=== PATIENT | female | born 1995 | race Caucasian/White ===

== ENCOUNTER 2016-07-06 17:05 | Emergency (ER) | payer BC, MEDICAID ==
[2016-07-06] MEDS ORDERED: DIPHENHYDRAMINE HCL 50 MG CAPSULE PO ONE (18:34)
[2016-07-06] MEDS ORDERED: NORMAL SALINE 1000 ML 1,000 ML IV ONE ×2 (18:34→18:58)
--- NOTE | 2016-07-06 18:35 | ER Document Report ---
ED Medical Screen (RME) - General Chief Complaint: Flu Symptoms Stated Complaint: UPPER ABDOMINAL PAIN W/ Mode of Arrival: Ambulatory Information source: Patient Notes: Patient is currently 7 months and complains of nausea and vomiting that started today. Patient is . Patient reports left upper quadrant abdominal pain. Patient denies any lower abdominal pain. Patient denies any fever, urinary symptoms, vaginal bleeding or discharge. TRAVEL OUTSIDE OF THE [place] IN LAST 30 DAYS: No - Related Data Allergies/Adverse Reactions: No Known Allergies Allergy (Unverified 07/06/16 18:31) Physical Exam - Vital signs Vitals: Temp Pulse Resp BP Pulse Ox 98.0 F 120 H 16 129/67 H 100 07/06/16 17:12 07/06/16 17:12 07/06/16 17:12 07/06/16 17:12 07/06/16 17:12 - Abdominal Inspection: Gravid female, Other - Left upper quadrant Course - Vital Signs Vital signs: Temp Pulse Resp BP Pulse Ox 98.0 F 120 H 16 129/67 H 100 07/06/16 17:12 07/06/16 18:30 07/06/16 17:12 07/06/16 17:12 07/06/16 17:12
[2016-07-06] MEDS ORDERED: METOCLOPRAMIDE HCL INJ/PF 10 MG/2 ML SDV IV ONE (18:57)
[2016-07-06 19:27] LABS: HEMATOCRIT 38.9 % (36.0-47.0); HEMOGLOBIN 12.9 g/dL (12.0-15.5); HGB HCT DIFFERENCE -0.2; MEAN CORPUSCULAR HEMOGLOBIN 26.7 pg (27.0-33.4); MEAN CORPUSCULAR HGB CONC 33.1 g/dL (32.0-36.0); MEAN CORPUSCULAR VOLUME 81 fl (80-97); RED BLOOD COUNT 4.83 10^6/uL (3.72-5.28); WHITE BLOOD COUNT 13.5 10^3/uL (4.0-10.5)
[2016-07-06 19:43] LABS: ALANINE AMINOTRANSFERASE 25 U/L (9-52); ALBUMIN 3.7 g/dL (3.5-5.0); ALKALINE PHOSPHATASE 75 U/L (38-126); ANION GAP 13 (5-19); ASPARTATE AMINO TRANSFERASE 17 U/L (14-36); BILIRUBIN,TOTAL 0.5 mg/dL (0.2-1.3); BLOOD UREA NITROGEN 10 mg/dL (7-20); CALCIUM 8.9 mg/dL (8.4-10.2); CARBON DIOXIDE 22 mmol/L (22-30); CHLORIDE 106 mmol/L (98-107); GLUCOSE 86 mg/dL (75-110); LIPASE 78.7 U/L (23-300); POTASSIUM 4.2 mmol/L (3.6-5.0); SODIUM 140.9 mmol/L (137-145); TOTAL PROTEIN 6.3 g/dL (6.3-8.2)
[2016-07-06] MEDS ORDERED: DEXTROSE 5%-LACTATED RINGERS 1,000 ML IV ONE (19:49)
--- NOTE | 2016-07-06 19:53 | ER Document Report ---
ED GI/ - General Mode of Arrival: Ambulatory Information source: Patient TRAVEL OUTSIDE OF THE [place] IN LAST 30 DAYS: No - HPI Patient complains to provider of: Abdominal pain - left side, Vomiting Onset: This afternoon - 13:00 Location: Other - see above Associated symptoms: Other - see above <PARAM SMITH - Last Filed: 07/06/16 20:07> <GABIJAZMÍNLUZ MARIA - Last Filed: 07/06/16 23:19> - General Chief Complaint: Flu Symptoms Stated Complaint: UPPER ABDOMINAL PAIN W/ Notes: 20 year old female (7 months) presents to the ED complaining of constant vomiting since 13:00 this afternoon. Patient states that she has associated left sided abdominal pain prior to vomiting. Patient explains that 1 week ago she had similar symptoms with the associated pain. Patient is vomiting every 30 minutes, stating that she is able to hold down water for approximately 30 minutes before vomiting. Mother states that the patient looks more pale than usual. Patient denies diarrhea, coughing, or fever. Patient denies any surgical history and states that she takes pre- vitamins, but is not regular about them. (PARAM SMITH) - Related Data Allergies/Adverse Reactions: No Known Allergies Allergy (Unverified 07/06/16 18:31) Past Medical History - General Information source: Patient - Social History Smoking Status: Never Smoker Frequency of alcohol use: None Family History: Reviewed & Not Pertinent - Medical History Medical History: Negative Surgical Hx: Negative <PARAM SMITH - Last Filed: 07/06/16 20:07> Review of Systems - Review of Systems Constitutional: No symptoms reported. denies: Fever EENT: No symptoms reported Cardiovascular: No symptoms reported Respiratory: No symptoms reported. denies: Cough Gastrointestinal: See HPI, Abdominal pain - left side, Vomiting. denies: Diarrhea Genitourinary: No symptoms reported Female Genitourinary: See HPI, - 7 months Musculoskeletal: No symptoms reported Skin: See HPI, Change in color - pale Hematologic/Lymphatic: No symptoms reported Neurological/Psychological: No symptoms reported <PARAM SMITH - Last Filed: 07/06/16 20:07> Physical Exam - Vital signs Interpretation: Normal - General General appearance: Alert In distress: None - HEENT Head: Normocephalic, Atraumatic Eyes: Normal Extraocular movements intact: Yes Pupils: PERRL - Respiratory Respiratory status: No respiratory distress Breath sounds: Normal - Cardiovascular Rhythm: Regular Heart sounds: Normal auscultation - Abdominal Inspection: Normal, Gravid female - 7 months Distension: No distension Tenderness: Tender - mild LUQ tenderness to palpation Organomegaly: No organomegaly - Back Back: Normal - Extremities General upper extremity: Normal inspection, Normal ROM General lower extremity: Normal inspection, Normal ROM - Neurological Neuro grossly intact: Yes - Psychological Associated symptoms: Normal affect, Normal mood - Skin Skin Temperature: Warm Skin Moisture: Dry Skin Color: Normal <PARAM SMITH - Last Filed: 07/06/16 20:07> <LUZ MARIA ASHLEY - Last Filed: 07/06/16 23:19> - Vital signs Vitals: Temp Pulse Resp BP Pulse Ox 98.0 F 120 H 16 129/67 H 100 07/06/16 17:12 07/06/16 17:12 07/06/16 17:12 07/06/16 17:12 07/06/16 17:12 (PARAM SMITH) (LUZ MARIA ASHLEY) Course - Laboratory Result Diagrams: 07/06/16 19:10 07/06/16 19:10 <PARAM SMITH - Last Filed: 07/06/16 20:07> - Laboratory Result Diagrams: 07/06/16 19:10 07/06/16 19:10 <LUZ MARIA ASHLEY - Last Filed: 07/06/16 23:19> - Re-evaluation Re-evalutation: 07/06/16 22:55 The patient's urine is clean, shows large amount of ketones. The elevated white blood cell count is probably due to all the nausea and vomiting and dehydration. There is no significant abdominal pain on exam or by history. There is no fever. There is no cough or URI symptoms. There is no abdominal or pelvic cramping or bleeding. At this time the patient states her nauseousness is much better even though she declined all nausea medication. She is requesting some tab linda to drink. 07/06/16 23:19 The patient drank tab linda, tolerated it well, is anxious to go home. (LUZ MARIA ASHLEY) - Vital Signs Vital signs: Temp Pulse Resp BP Pulse Ox 98.2 F 99 24 H 102/58 L 96 07/06/16 19:19 07/06/16 19:19 07/06/16 22:31 07/06/16 22:31 07/06/16 22:31 (PARAM SMITH) (LUZ MARIA ASHLEY) - Laboratory Laboratory results interpreted by me: 07/06/16 07/06/16 19:10 21:58 WBC 13.5 H MCH 26.7 L Seg Neuts % (Manual) 92 H Band Neutrophils % 2 L Lymphocytes % (Manual) 2 L Abs Neuts (Manual) 12.7 H Abs Lymphs (Manual) 0.4 L Urine Glucose (UA) >=500 H Urine Ketones 80 H Urine Ascorbic Acid 40 H (LUZ MARIA ASHLEY) Discharge <PARAM SMITH - Last Filed: 07/06/16 20:07> <LUZ MARIA ASHLEY - Last Filed: 07/06/16 23:19> - Discharge Clinical Impression: Dehydration, Third trimester at less than 36 weeks Nausea & vomiting Qualifiers: Vomiting type: unspecified Vomiting Intractability: non-intractable Qualified Code(s): R11.2 - Nausea with vomiting, unspecified Condition: Stable Disposition: HOME, SELF-CARE Additional Instructions: Nausea or Vomiting, Nonspecific: Vomiting (or nausea without vomiting) can be caused by many different problems. Of course, it can mean that something's wrong with the stomach, such as "stomach flu," ulcers, or inflammation. But it can also be a symptom of a problem that has nothing to do with the stomach or intestines. Vomiting is common with severe headaches, earaches, and tonsillitis. We see it with pneumonia or heart attacks. Drugs can cause nausea. Many abdominal problems cause vomiting; for example, gallstones, kidney stones, pancreatitis, and intestinal obstruction (blocked bowels). In most cases, curing the vomiting depends on fixing the problem that caused it. For temporary relief, we may use an anti-nausea medicine. For home use, we can prescribe suppositories, chewable pills, pills that dissolve in the mouth, or liquid anti-nausea drugs. If the vomiting seems to be caused by a problem in the stomach, acid-suppressing drugs may be prescribed as well. It's important to avoid dehydration. Sip clear liquids. Take increasing amounts of fluid over the first 24 hours. Then start small amounts of bland foods (such as dry toast, applesauce, mashed potato). Avoid aspirin, tobacco, and alcohol. Gradually resume your usual diet. If the vomiting worsens, if the problem that's making you vomit worsens, or if there's evidence of bleeding in the stomach (such as black, tarry stool, bloody or black vomit, or lightheadedness), you should return immediately. Call your doctor if you aren't improved in 24 to 36 hours. TAKE THE MEDICATION PRESCRIBED FOR NAUSEA IF NEEDED. DRINK SMALL SIPS OF COOL CLEAR LIQUIDS TODAY. FOLLOW UP WITH YOUR DOCTOR THIS WEEK FOR RECHECK IF NOT IMPROVING. RETURN TO THE EMERGENCY ROOM IF ANY NEW OR WORSENING SYMPTOMS. Prescriptions: Promethazine HCl [Phenergan 25 mg Tablet] 25 mg PO Q4 PRN #12 tablet PRN Reason: For Nausea/Vomiting Referrals: GALEN RAMIREZ MD [Primary Care Provider] - Follow up in 3-5 days Иринаibe Attestation: 07/06/16 23:13 I personally performed the services described in the documentation, reviewed and edited the documentation which was dictated to the scribe in my presence, and it accurately records my words and actions. (ULZ MARIA ASHLEY) Scribe Documentation - Scribe Written by Alber:: Alber Kruse, 07/06/2016 19:53 acting as scribe for :: Gabi <PARAM SMITH - Last Filed: 07/06/16 20:07>
[2016-07-06 20:04] LABS: BAND NEUTROPHILS % (MANUAL) 2 % (3-5); BASOPHILS % (MANUAL) 0 % (0-2); EOSINOPHILS % (MANUAL) 0 % (0-6); LYMPHOCYTES % (MANUAL) 2 % (13-45); TOTAL CELLS COUNTED 100
[2016-07-06 20:05] LABS: HYPOCHROMASIA SLIGHT
[2016-07-06 22:25] LABS: APPEARANCE,URINE SLIGHTLY-CLOUDY; BILIRUBIN,URINE NEGATIVE (NEGATIVE); GLUCOSE, URINE >=500 mg/dL (NEGATIVE); KETONES,URINE 80 mg/dL (NEGATIVE); LEUKOCYTE ESTERASE,URINE NEGATIVE (NEGATIVE); NITRITE,URINE NEGATIVE (NEGATIVE); PROTEIN,URINE NEGATIVE (NEGATIVE); URINE SPECIFIC GRAVITY 1.023; UROBILINOGEN,URINE NEGATIVE mg/dL (<2.0)
[2016-07-06 23:21] VITALS: BP 110/67
== END 2016-07-06 23:28 | disposition home or self-care (01) ==
LOC: ER 17:05
DX: O21.2 Late vomiting of pregnancy (principal); O99.283 Endocrine, nutritional and metabolic diseases complicating pregnancy, third trimester; E86.0 Dehydration; O26.893 Other specified pregnancy related conditions, third trimester; R10.12 Left upper quadrant pain; R23.1 Pallor; Z3A.00 Weeks of gestation of pregnancy not specified
CPT/HCPCS: 99284; 96361; 96374; 96375; 36415; 83690; 85025; 80053; 81001; J3490; J7030

== ENCOUNTER 2016-08-20 14:32 | Outpatient (CLI) | payer MEDICAID ==
--- NOTE | 2016-08-20 16:01 | L&D Flow Sheet ---
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 Received order to check bedside glucose and give her crackers and peanut butter. (Vicky Broderick RN) Datetime: 08/20/2016 15:40 Maternal Assessment Level of Consciousness: Fully Conscious (Vicky Desaijohnember, RN) DTR's/Clonus: DTRs 2+; No Clonus (Vicky Marlaember, RN) Headache: Denies (Vicky Broderick, RN) Breath Sounds, Left: Clear and Equal (Vicky Desaijohnember, RN) Breath Sounds, Right: Clear and Equal (Vicky Kristinember, RN) Nausea/Vomiting: Denies (Vicky Marlaember RN) RUQ Epigastric Pain: Denies (Vicky Broderick, RN) Datetime: 08/20/2016 15:35 Vital Signs NBP Sys/Cherie/Mean (mmHg): 94 (QS system process) : 57 (QS system process) : 68 (QS system process) Pulse: 74 (QS system process)
[2016-08-20 16:16] LABS: APPEARANCE,URINE SLIGHTLY-CLOUDY; BILIRUBIN,URINE NEGATIVE (NEGATIVE); GLUCOSE, URINE NEGATIVE (NEGATIVE); KETONES,URINE 20 mg/dL (NEGATIVE); LEUKOCYTE ESTERASE,URINE MODERATE (NEGATIVE); NITRITE,URINE NEGATIVE (NEGATIVE); PROTEIN,URINE NEGATIVE (NEGATIVE); URINE SPECIFIC GRAVITY 1.005; UROBILINOGEN,URINE NEGATIVE mg/dL (<2.0)
[2016-08-20 16:36] LABS: URINE BARBITURATES SCREEN NEGATIVE; URINE METHADONE SCREEN NEGATIVE; URINE OPIATES LOW NEGATIVE; URINE PHENCYCLIDINE SCREEN NEGATIVE
--- NOTE | 2016-08-20 17:11 | Non Stress Test Report ---
Non Stress Test Datetime Report Generated by CPN: 08/20/2016 17:11 DEMOGRAPHIC EGA NST: 34.4 INDICATION Indication for Study: Other Indication for Study (NST) Other: LC MONITORING Monitor Explained: Monitor Explained; Test Explained; Patient Verbalized Understanding Time on Monitor: 08/20/2016 15:37 Time off Monitor: 08/20/2016 16:24 NST Duration: 47 NST INTERVENTIONS NST Interventions: PO Hydration Physician Notified NST: A. Emmel CNM BABY A: [id number] BABY A Movement : Present Contraction Frequency : rare FHR Baseline : 125 Accelerations : 15X15 Decelerations : None Variability : Moderate 6-25bpm NST Review: Meets Criteria for Reactive NST NST Review and Verified By : Alvin Keyes RN NST Results: Reactive NST REPORT Report Trigger: Send Report
== END 2016-08-20 16:30 | disposition home or self-care (01) ==
LOC: LC 14:32
PROVIDERS: ATTEND Specialist
PROC: 4A1HXCZ Monitoring of Products of Conception, Cardiac Rate, External Approach (ICD-10-PCS; principal; 2016-08-20)
DX: O47.03 False labor before 37 completed weeks of gestation, third trimester (principal); Z3A.34 34 weeks gestation of pregnancy
CPT/HCPCS: 59025; 80307; 81001; 82962

== ENCOUNTER 2016-09-25 08:11 | Outpatient (CLI) | payer MEDICAID ==
[2016-09-25 08:49] LABS: APPEARANCE,URINE SLIGHTLY-CLOUDY; BILIRUBIN,URINE NEGATIVE (NEGATIVE); GLUCOSE, URINE NEGATIVE (NEGATIVE); KETONES,URINE NEGATIVE (NEGATIVE); LEUKOCYTE ESTERASE,URINE TRACE (NEGATIVE); NITRITE,URINE NEGATIVE (NEGATIVE); PROTEIN,URINE 30 mg/dL (NEGATIVE); UROBILINOGEN,URINE NEGATIVE mg/dL (<2.0)
[2016-09-25 09:16] LABS: URINE BARBITURATES SCREEN NEGATIVE; URINE METHADONE SCREEN NEGATIVE; URINE OPIATES LOW NEGATIVE; URINE PHENCYCLIDINE SCREEN NEGATIVE
--- NOTE | 2016-09-25 10:46 | L&D Flow Sheet ---
LD Flowsheet Datetime Report Generated by CPN: 09/25/2016 10:45 Datetime: 09/25/2016 09:16 Communication Additional Nursing Comments: Pt physically left L_D ambulatory in stable condition with at side and no complaints or needs at this time. (Arabella Jose Luis, RNC) Datetime: 09/25/2016 09:05 Assessment A Comments: Monitors removed from abdomen, pt up to BR to change clothes for D/C home. (Arabella Jose Luis, RNC) Datetime: 09/25/2016 08:37 Vital Signs NBP Sys/Cherie/Mean (mmHg): 124 (QS system process) : 77 (QS system process) : 96 (QS system process) Pulse: 87 (QS system process) Pain Pain Scale: 0 (Arabella Jose Luis, RNC) Vaginal Exam Vaginal Bleeding: Normal Show (Annotations: Pt states she is not sure if the bleeding is normal or not.) (Arabella Jose Luis, RNC) Maternal Assessment Level of Consciousness: Fully Conscious (Arabella Aamya, RNC) DTR's/Clonus: DTRs 2+; No Clonus (Arabella Amaya, RNC) Headache: Denies (Arabella Amaya, RNC) Breath Sounds, Left: Clear and Equal (Arabella Jose Luis, RNC) Breath Sounds, Right: Clear and Equal (Arabella Jose Luis, RNC) Nausea/Vomiting: Denies (Arabella Amaya, RNC) RUQ Epigastric Pain: Denies (Arabella Jose Luis, RNC) Teaching Instructional Method: Verbal; Patient Instructed; Family/Support Person Instructed; Verbalized Understanding (Arabella Amaya RNC) Plan of Care: Plan of Care Discussed; Vaginal Delivery; Labor (Arabella Amaya RNC) Unit Routine: [place] to Room; Call Francis; Bed; Unit Personnel; Handwashing; Monitoring; Bathroom Privileges (Arabella Amaya RNC) Labor/Induction: Labor Stages; Augmentation; Induction; Interventions; Activity (Arabella Amaya RNC) Related: Common Discomforts of ; Maternal Physical Changes; Hydration; Activity and Rest (Arabella Amaya, RNC) Datetime: 09/25/2016 08:20 Communication Additional Nursing Comments: Pt arrived to L_D via wheelchair with complaints of vaginal bleeding. (HAYLIE Talbot)
--- NOTE | 2016-09-25 10:46 | L&D Current Admission ---
Current Admit Datetime Report Generated by CPN: 09/25/2016 10:45 ADMISSION INFORMATION Chief Complaint: Vaginal Bleeding (09/25/2016 08:37:HAYLIE Talbot) Chief Complaint: Dizziness; Other (08/20/2016 15:40:Vicky Broderick RN)
--- NOTE | 2016-09-25 10:46 | L&D Admission Assessment ---
LD ADM ASMT Datetime Report Generated by CPN: 09/25/2016 10:45 PATIENT ASSESSMENT Assessment Type: Triage (09/25/2016 08:37:Arabellaoleksandr Amaya, RNC) WEIGHT Weight (lb): 255 (09/25/2016 08:25:QS system process) Weight (kg): 115.9 (09/25/2016 08:25:QS system process) BMI: 41.2 (09/25/2016 08:25:QS system process) PAIN Pain Scale: 0 (09/25/2016 08:37:HAYLIE Talbot) NEURO Level of Consciousness: Fully Conscious (09/25/2016 08:37:HAYLIE Talbot) DTR's/Clonus: DTRs 2+; No Clonus (09/25/2016 08:37:Arabella Amaya RN) Headache: Denies (09/25/2016 08:37:HAYLIE Talbot) Dizziness: No (09/25/2016 08:37:HAYLIE Talbot) Blurred Vision: No (09/25/2016 08:37:Arabella Amaya RN) Extremity Numbness/Tingling : None (09/25/2016 08:37:HAYLIE Talbot) Extremity Movement: Full Range of Motion (09/25/2016 08:37:Arabella Amaya RN) CARDIOVASCULAR Heart Rhythm: Regular (09/25/2016 08:37:HAYLIE Talbot) Nailbeds: [place] (09/25/2016 08:37:HAYLIE Talbot) Capillary Refill: Less than 3 Seconds (09/25/2016 08:37:HAYLIE Talbot) Lower Extremities Edema: None (09/25/2016 08:37:HAYLIE Talbot) Lower Extremities Edema Degree: None (09/25/2016 08:37:HAYLIE Talbot) Upper Extremities Edema: None (09/25/2016 08:37:HAYLIE Talbot) Upper Extremities Edema Degree: None (09/25/2016 08:37:HAYLIE Talbot) Facial Edema: None (09/25/2016 08:37:HAYLIE Talbot) RESPIRATORY Respiratory Effort: Unlabored; Regular Rhythm; Equal Expansion (09/25/2016 08:37:HAYLIE Talbot) Breath Sounds, Left: Clear and Equal (09/25/2016 08:37:HAYLIE Talbot) Breath Sounds, Right: Clear and Equal (09/25/2016 08:37:HAYLIE Talbot) Cough Productivity: None (09/25/2016 08:37:HAYLIE Talbot) GASTROINTESTINAL Nausea/Vomiting: Denies (09/25/2016 08:37:HAYLIE Talbot) Bowel Sounds: Normoactive; All Quadrants (09/25/2016 08:37:HAYLIE Talbot) RUQ Epigastric Pain: Denies (09/25/2016 08:37:HAYLIE Talbot) GENITOURINARY Bladder: Nondistended (09/25/2016 08:37:HAYLIE Talbot) Frequency of Urination: No (09/25/2016 08:37:HAYLIE Talbot) Urination Burning: No (09/25/2016 08:37:HAYLIE Talbot) CVA Tenderness: No (09/25/2016 08:37:HAYLIE Talbot) Vaginal Bleeding: None (09/25/2016 08:37:HAYLIE Talbot) Vaginal Discharge Color: N/A (09/25/2016 08:37:HAYLIE Talbot) INTEGUMENTARY Skin Color: Normal for Race (09/25/2016 08:37:HAYLIE Talbot) Skin Temperature: Warm (09/25/2016 08:37:HAYLIE Talbot) Skin Moisture: Dry (09/25/2016 08:37:HAYLIE Talbot) Body Piercings/Tattoos: Tongue, ears, and belly button pierced (09/25/2016 08:37:HAYLIE Talbot) JOSE SKIN ASSESSMENT Jose Scale Sensory Perception: No Impairment- Responds to verbal commands. Has no sensory deficit which would limit ability to feel or voice pain or discomfort (09/25/2016 08:37:HAYLIE Talbot) Jose Scale Moisture: Rarely Moist- Skin is usually dry. Linen only requires changing at routine intervals (09/25/2016 08:37:HAYLIE Talbot) Jose Scale Activity: Walks Frequently- Walks outside the room at least twice a day and inside room at least every 2 hours during the day. (09/25/2016 08:37:HAYLIE Talbot) Jose Scale Mobility: No Limitations- Makes major and frequent changes in position without assistance (09/25/2016 08:37:HAYLIE Talbot) Jose Scale Nutrition: Excellent- Eats most of every meal. Never refuses a meal. Usually eats a total of 4 or more servings of meat and dairy products. Occasionally eats between meals. Does not require supplementation (09/25/2016 08:37:HAYLIE Talbot) Jose Scale Friction and Shear: No Apparent Problem- Moves in bed and in chair independently and has sufficient muscle strength to lift up completely during move. Maintains good position in bed or chair at all times (09/25/2016 08:37:HAYLIE Talbot) Jose Scale Total: 23 (09/25/2016 08:37:QS system process) Ojse Scale Risk: No Risk of Pressure Ulcer Noted at this Time (09/25/2016 08:37:QS system process) SUPPORT Family Support: Significant Other supportive, at bedside frequently (09/25/2016 08:37:HAYLIE Talbot) Emotional State: Calm/Relaxed (09/25/2016 08:37:HAYLIE Talbot) SAFETY Call Francis Within Reach: Yes (09/25/2016 08:37:HAYLIE Talbot) Side Rails Up: Yes (09/25/2016 08:37:HAYLIE Talbot) Bed Wheels Locked: Yes (09/25/2016 08:37:HAYLIE Talbot) Arm Bands Present: Yes (09/25/2016 08:37:HAYLIE Talbot) FALL SCREEN Fall Risk History of Falling: (0) No (09/25/2016 08:37:HAYLIE Talbot) Fall Risk Secondary Diagnosis: (0) No (09/25/2016 08:37:HAYLIE Talbot) Fall Risk Ambulatory Aid: (0) None/Bedrest/Wheelchair/Nurse Assist (09/25/2016 08:37:HAYLIE Talbot) Fall Risk IV Therapy: (0) No (09/25/2016 08:37:HAYLIE Talbot) Fall Risk Gait: (0) Normal/Bedrest/Immobile (09/25/2016 08:37:HAYLIE Talbot) Fall Risk Mental Status: (0) Oriented to Own Ability (09/25/2016 08:37:HAYLIE Talbot) Fall Risk Score: 0 (09/25/2016 08:37:QS system process) Fall Risk Score Definition: No Risk: No action required (09/25/2016 08:37:QS system process)
--- NOTE | 2016-09-25 10:46 | L&D General Admission ---
General Admit Datetime Report Generated by CPN: 09/25/2016 10:45 INFORMATION Patient Age: 20 (08/20/2016 14:33:QS system process) EDC: 09/26/2016 00:00 (08/20/2016 14:44:HAYLIE Talbot) : 1 (08/20/2016 14:44:HAYLIE Talbot) Para: 0 (08/20/2016 14:44:HAYLIE Talbot) Term: 0 (08/20/2016 14:44:HAYLIE Talbot) : 0 (08/20/2016 14:44:HAYLIE Talbot) Spontaneous Abortions: 0 (08/20/2016 14:44:HAYLIE Talbot) Induced Abortions: 0 (08/20/2016 14:44:HAYLIE Talbot) Livin (08/20/2016 14:44:HAYLIE Talbot) Cesareans: 0 (08/20/2016 14:44:HAYLIE Talbot) VBACs: 0 (08/20/2016 14:44:HAYLIE Talbot) Ectopic: 0 (08/20/2016 14:44:HAYLIE Talbot) Multiple Births: 0 (08/20/2016 14:44:HAYLIE Talbot) Baby, Number in Womb: 1 (08/20/2016 14:44:HAYLIE Talbot) CARE Primary Industrial Safety And Health Specialist: [facility] (08/20/2016 14:44:Vicky Broderick RN) Adequate Care: Yes (08/20/2016 14:44:HAYLIE Talbot) Height (in): 67 (09/25/2016 08:25:QS system process) Height (in): 66 (08/20/2016 17:15:QS system process) ALLERGIES Medication Allergy: No (08/20/2016 14:44:HAYLIE Talbot) Medication Allergies: No Known Allergies (09/25/2016) (09/25/2016 08:25:QS system process) Medication Allergies: No Known Allergies (08/20/2016) (08/20/2016 17:14:QS system process) Medication Allergies: No Known Allergies (07/06/2016) (08/20/2016 14:33:QS system process) Latex Allergy: No Latex Allergies (08/20/2016 14:44:HAYLIE Talbot) COMMUNICATION Primary Language: Serbian (08/20/2016 14:44:HAYLIE Talbot) DEMOGRAPHICS Address: [address] [place] [id number] (08/20/2016 14:33:QS system process) Zipcode: [address] (08/20/2016 14:33:QS system process) Home (08/20/2016 14:33:QS system process) Work (08/20/2016 14:33:QS system process) SSN: [id number] (08/20/2016 14:33:QS system process) Next of Kin Name: CARLENE REYES (08/20/2016 14:33:QS system process) Next of Kin (08/20/2016 14:33:QS system process) Next of Kin Relationship: MO (08/20/2016 14:33:QS system process) Date of : 1995 (08/20/2016 14:33:QS system process) Marital Status: Single (08/20/2016 14:33:QS system process) Sex: Female (08/20/2016 14:33:QS system process) Race: (08/20/2016 14:33:QS system process) Ethnicity: Non- or (08/20/2016 14:33:QS system process) Hoahaoism: Synagogue (08/20/2016 14:33:QS system process) DRUG AND ALCOHOL USE Alcohol: No (08/20/2016 14:44:HAYLIE Talbot) Cigarettes: Former Smoker. [id number] (08/20/2016 14:44:HAYLIE Talbot) Marijuana: No (08/20/2016 14:44:HAYLIE Talbot) Cocaine: No (08/20/2016 14:44:HAYLIE Talbot) Other Illicit Drugs: No (08/20/2016 14:44:HAYLIE Talbot)
--- NOTE | 2016-09-25 10:46 | Antepartum Discharge Summary ---
Antepartum DC Datetime Report Generated by CPN: 09/25/2016 10:45 DIET/ACTIVITY/RESTRICTIONS Diet: Regular (09/25/2016 09:00:HAYLIE Talbot) Activity: Normal Activity (09/25/2016 09:00:Arabella Amaya RNC) TEACHING/INSTRUCTIONS/REFERRALS Instructions Given To: Patient (09/25/2016 09:00:HAYLIE Talbot) Instructions Understood: Patient Verbalized Understanding; Support Person Verbalized Understanding (09/25/2016 09:00:HAYLIE Talbot) Referrals: None (09/25/2016 09:00:HAYLIE Talbot) Educational Materials- Other: term labor, the labor process (09/25/2016 09:00:HAYLIE Talbot) DISCHARGE INFORMATION Discharged AMA: No (09/25/2016 09:00:HAYLIE Talbot) Discharge Date/Time: 09/25/2016 09:16 (09/25/2016 09:00:HAYLIE Talbot) Discharged To: Home (09/25/2016 09:00:HAYLIE Talbot) Discharge Provider Name: Kathrin Haro CNM (09/25/2016 09:00:HAYLIE Talbot) Accompanied By: (09/25/2016 09:00:HAYLIE Talbot) Discharge Method: Ambulatory (09/25/2016 09:00:HAYLIE Talbot) Condition: Stable (09/25/2016 09:00:HAYLIE Talbot) FOLLOW UP INFORMATION Follow Up With: [facility] (09/25/2016 09:00:HAYLIE Talbot) Follow Up On: As Scheduled (09/25/2016 09:00:HAYLIE Talbot) Follow Up Phone Number: [facility] - (09/25/2016 09:00:HAYLIE Talbot)
--- NOTE | 2016-09-25 10:46 | L&D Discharge Summary ---
OB Discharge Summary Datetime Report Generated by CPN: 09/25/2016 10:45 DISCHARGE DIAGNOSIS Diagnosis/Symptoms: False Labor Diagnoses/Symptoms Other: IUP at 39.5 weeks, reactive NST, normal bloody show, not in labor Gestation: 39.5 Number of Babies in Womb: 1 Parity: 0 DIET/ACTIVITY/RESTRICTIONS Diet: Regular Activity: Normal Activity TEACHING/INSTRUCTIONS/REFERRALS Instructions Given To: Patient Instructions Understood: Patient Verbalized Understanding; Support Person Verbalized Understanding Referrals: None Educational Materials- Other: term labor, the labor process DISCHARGE INFORMATION Discharged AMA: No Discharge Date/Time: 09/25/2016 09:16 Discharged To: Home Discharge Provider Name: Kathrin Haro CNM Accompanied By: Discharge Method: Ambulatory Condition: Stable FOLLOW UP INFORMATION Follow Up With: [facility] Follow Up On: As Scheduled Follow Up Phone Number: [email or web address] - Comments: Instructed patient to eat small frequent meals to avoid feeling like that again. Instructed patient on how to do Kick Counts. Patient verbalized understanding and denied any questions.
== END 2016-09-25 09:16 | disposition home or self-care (01) ==
LOC: LC 08:11
PROVIDERS: ATTEND Student in an Organized Health Care Education/Training Program
PROC: 4A1HXCZ Monitoring of Products of Conception, Cardiac Rate, External Approach (ICD-10-PCS; principal; 2016-09-25)
DX: O47.1 False labor at or after 37 completed weeks of gestation (principal); Z3A.39 39 weeks gestation of pregnancy
CPT/HCPCS: 59025; 80307; 81005

== ENCOUNTER 2016-09-27 11:30 | Inpatient (IN) | payer MEDICAID ==
[2016-09-27 12:07] LABS: AMNISURE (ROM) POSITIVE (NEGATIVE)
[2016-09-27 12:10] LABS: APPEARANCE,URINE CLEAR; BILIRUBIN,URINE NEGATIVE (NEGATIVE); GLUCOSE, URINE NEGATIVE (NEGATIVE); KETONES,URINE NEGATIVE (NEGATIVE); LEUKOCYTE ESTERASE,URINE NEGATIVE (NEGATIVE); NITRITE,URINE NEGATIVE (NEGATIVE); PROTEIN,URINE NEGATIVE (NEGATIVE); URINE SPECIFIC GRAVITY 1.014; UROBILINOGEN,URINE NEGATIVE mg/dL (<2.0)
[2016-09-27 12:31] LABS: URINE BARBITURATES SCREEN NEGATIVE; URINE METHADONE SCREEN NEGATIVE; URINE OPIATES LOW NEGATIVE; URINE PHENCYCLIDINE SCREEN NEGATIVE
[2016-09-27 12:53] LABS: ABSOLUTE LYMPHOCYTES (AUTO) 1.2 10^3/uL (0.5-4.7); ABSOLUTE MONOCYTES (AUTO) 0.7 10^3/uL (0.1-1.4); ABSOLUTE NEUT (AUTO) 9.2 10^3/uL (1.7-8.2); BASOPHILS % (AUTO) 0.1 % (0-2); EOSINOPHILS % (AUTO) 0.1 % (0-6); HEMATOCRIT 34.8 % (36.0-47.0); HEMOGLOBIN 11.5 g/dL (12.0-15.5); HGB HCT DIFFERENCE -0.3; LYMPHOCYTES % (AUTO) 11.1 % (13-45); MEAN CORPUSCULAR HEMOGLOBIN 26.2 pg (27.0-33.4); MEAN CORPUSCULAR VOLUME 79 fl (80-97); MONOCYTES % (AUTO) 6.6 % (3-13); RED CELL DISTRIBUTION WIDTH 14.3 % (11.5-14.0); SEGMENTED NEUTROPHILS % (AUTO) 82.1 % (42-78); WHITE BLOOD COUNT 11.2 10^3/uL (4.0-10.5)
[2016-09-27] MEDS ORDERED: OXYTOCIN/NORMAL SALINE 1,000 ML IV PRN (14:20)
[2016-09-27] MEDS ORDERED: RINGERS SOLUTION,LACTATED 1,000 ML IV PRN (14:20)
[2016-09-27] MEDS ORDERED: OXYTOCIN/NORMAL SALINE 0 UNIT/0 ML RTUINJ ONE (14:50)
[2016-09-27] MEDS ORDERED: ONDANSETRON HCL INJ/PF 4 MG/2 ML SDV ONE (16:09)
[2016-09-27] MEDS ORDERED: NALBUPHINE HCL INJ 10 MG/1 ML AMPULE ONE (16:54)
[2016-09-27] MEDS ORDERED: EPHEDRINE SULFATE INJ 50 MG/1 ML AMPULE IV PRN (18:38)
[2016-09-27] MEDS ORDERED: FENTANYL/BUPIVACAINE/NS/PF 100 ML EPI PRN (18:38)
[2016-09-27] MEDS ORDERED: BUPIVACAINE HCL 0.25 % INJ/PF (2.5 MG/1 ML) 30 ML VIAL INFIL ONE (18:38)
[2016-09-27] MEDS ORDERED: EPHEDRINE SULFATE INJ 50 MG/1 ML AMPULE ONE (18:40)
[2016-09-27] MEDS ORDERED: BUPIVACAINE HCL 0.25 % INJ/PF (2.5 MG/1 ML) 30 ML VIAL ONE (18:41)
[2016-09-27] MEDS ORDERED: FENTANYL/BUPIVACAINE/NS/PF 200 MCG/100 ML RTUINJ EPI ONE (18:41)
--- NOTE | 2016-09-27 20:01 | L&D Flow Sheet ---
LD Flowsheet Datetime Report Generated by CPN: 09/27/2016 20:00 Datetime: 09/27/2016 19:50 Patient Position/Activity: Left Lateral (Judy Ledgerwood, RN) Datetime: 09/27/2016 19:43 NBP Sys/Cherie/Mean (mmHg): 122 (QS system process) : 89 (QS system process) : 101 (QS system process) Pulse: 93 (QS system process) LaborFlag: Labor (QS system process) Datetime: 09/27/2016 19:24 Pain Scale: 0 (Judy Mcintosh, RN) Pain Presence: None/Denies (Judy Mcintosh, RN) Vaginal Bleeding: None (Judy Mcintosh, RN) Level of Consciousness: Fully Conscious (Judy Mcintosh, RN) DTR's/Clonus: DTRs 2+; No Clonus (Judy Mcintosh, RN) Headache: Denies (Judy Mcintosh, RN) Breath Sounds, Left: Clear and Equal (Judy Mcintosh, RN) Breath Sounds, Right: Clear and Equal (Jduy Trippgeralex, RN) Nausea/Vomiting: Denies (Judy Mcintosh, RN) RUQ Epigastric Pain: Denies (Judy Mcintosh, RN) Instructional Method: Demo; Verbal; Patient Instructed (Judy Mcintosh, RN) Plan of Care: Plan of Care Discussed; Vaginal Delivery (Judy Mcintosh, RN) LaborFlag: Labor (QS system process) Datetime: 09/27/2016 19:23 NBP Sys/Cherie/Mean (mmHg): 141 (QS system process) : 73 (QS system process) : 101 (QS system process) Pulse: 107 (QS system process) LaborFlag: Labor (QS system process) Datetime: 09/27/2016 19:22 NBP Sys/Cherie/Mean (mmHg): 134 (QS system process) : 88 (QS system process) : 107 (QS system process) Pulse: 105 (QS system process) LaborFlag: Labor (QS system process) Datetime: 09/27/2016 19:21 Communication: Report Given to @ Leonard Mcintosh RN (Marquita Hooper RN) Communication Comments: report received from Lara Hooper RN at bedside (Judy Mcintosh RN) Datetime: 09/27/2016 19:20 NBP Sys/Cherie/Mean (mmHg): 128 (QS system process) : 75 (QS system process) : 96 (QS system process) Pulse: 103 (QS system process) LaborFlag: Labor (QS system process) Datetime: 09/27/2016 19:19 NBP Sys/Cherie/Mean (mmHg): 133 (QS system process) : 63 (QS system process) : 90 (QS system process) Pulse: 88 (QS system process) LaborFlag: Labor (QS system process) Datetime: 09/27/2016 19:18 NBP Sys/Cherie/Mean (mmHg): 138 (QS system process) : 63 (QS system process) : 90 (QS system process) Pulse: 106 (QS system process) LaborFlag: Labor (QS system process) Datetime: 09/27/2016 19:17 NBP Sys/Cherie/Mean (mmHg): 123 (QS system process) : 65 (QS system process) : 89 (QS system process) Pulse: 96 (QS system process) LaborFlag: Labor (QS system process) Datetime: 09/27/2016 19:16 NBP Sys/Cherie/Mean (mmHg): 133 (QS system process) : 69 (QS system process) : 100 (QS system process) Pulse: 101 (QS system process) LaborFlag: Labor (QS system process) Datetime: 09/27/2016 19:15 NBP Sys/Cherie/Mean (mmHg): 145 (QS system process) : 73 (QS system process) : 105 (QS system process) Pulse: 89 (QS system process) Dilatation (cm): 4.0 (Matilda Estrada RN) Effacement (%): 90 (Matilda Estrada RN) Station: 0 (Matilda Estrada RN) Exam by: Deandra Hooper RN (Matilda Estrada RN) LaborFlag: Labor (QS system process) Datetime: 09/27/2016 19:14 NBP Sys/Cherie/Mean (mmHg): 143 (QS system process) : 65 (QS system process) : 93 (QS system process) Pulse: 107 (QS system process) LaborFlag: Labor (QS system process) Datetime: 09/27/2016 19:12 NBP Sys/Cherie/Mean (mmHg): 156 (QS system process) : 67 (QS system process) : 97 (QS system process) Pulse: 94 (QS system process) LaborFlag: Labor (QS system process) Datetime: 09/27/2016 19:11 NBP Sys/Cherie/Mean (mmHg): 145 (QS system process) : 70 (QS system process) : 98 (QS system process) Pulse: 103 (QS system process) LaborFlag: Labor (QS system process) Datetime: 09/27/2016 19:10 NBP Sys/Cherie/Mean (mmHg): 137 (QS system process) : 62 (QS system process) : 93 (QS system process) Pulse: 101 (QS system process) LaborFlag: Labor (QS system process) Datetime: 09/27/2016 19:09 NBP Sys/Cherie/Mean (mmHg): 145 (QS system process) : 66 (QS system process) : 95 (QS system process) Pulse: 92 (QS system process) LaborFlag: Labor (QS system process) Datetime: 09/27/2016 19:07 NBP Sys/Cherie/Mean (mmHg): 142 (QS system process) : 75 (QS system process) : 103 (QS system process) Pulse: 97 (QS system process) LaborFlag: Labor (QS system process) Datetime: 09/27/2016 19:06 NBP Sys/Cherie/Mean (mmHg): 142 (QS system process) : 74 (QS system process) : 103 (QS system process) Pulse: 93 (QS system process) Epidural Procedure Other: Pump Started (Marquita Hooper RN) LaborFlag: Labor (QS system process) Datetime: 09/27/2016 19:05 NBP Sys/Cherie/Mean (mmHg): 130 (QS system process) : 69 (QS system process) : 93 (QS system process) Pulse: 90 (QS system process) LaborFlag: Labor (QS system process) Datetime: 09/27/2016 19:04 NBP Sys/Cherie/Mean (mmHg): 145 (QS system process) : 65 (QS system process) : 102 (QS system process) Pulse: 90 (QS system process) Epidural Procedure: Loading Dose (Marquita Hooper RN) LaborFlag: Labor (QS system process) Datetime: 09/27/2016 19:02 NBP Sys/Cherie/Mean (mmHg): 153 (QS system process) : 96 (QS system process) : 116 (QS system process) Pulse: 91 (QS system process) LaborFlag: Labor (QS system process) Datetime: 09/27/2016 19:01 NBP Sys/Cherie/Mean (mmHg): 151 (QS system process) : 93 (QS system process) : 116 (QS system process) Pulse: 92 (QS system process) Pulse: 85 (QS system process) SpO2 (%): 98 (QS system process) LaborFlag: Labor (QS system process) Datetime: 09/27/2016 19:00 NBP Sys/Cherie/Mean (mmHg): 140 (QS system process) : 75 (QS system process) : 98 (QS system process) Pulse: 89 (QS system process) Monitor Mode: External; Palpation (Matilda Estrada RN) Monitor Interventions for UA: [place] Adjusted (Yvette Gibbons RN) Frequency (min): 2-4 (Matilda Estrada RN) Quality: Mild (Yvette Gibbons RN) Quality: Mild/Moderate (Matilda Estrada RN) Duration (sec): 40-70 (Matilda Estrada RN) Resting Tone (Palpate): Relaxed (Yvette Gibbons RN) Resting Tone (Palpate): Relaxed (Matilda Estrada RN) Contraction Comments: RN @ bedside adjusting toco (Yvette Gibbons RN) Monitor Mode: External US (Matilda Estrada RN) FHR Baseline Rate : 130 (Matilda Estrada RN) FHR Baseline Changes: No Baseline Change (Yvette Gibbons RN) Variability: Moderate 6-25 bpm (Matilda Estrada RN) Accelerations: 15X15 (Matilda Estrada RN) Decelerations: None (Matilda Estrada RN) Pitocin (milliunit): Pitocin Remains (milliunits) @ 12 (Marquita Hooper RN) Pitocin (milliunit): Pitocin Remains (milliunits) @ (Annotations: 12) (Marquita Hooper RN) Epidural Procedure: Test Dose (Matilda Estrada RN) LaborFlag: Labor (QS system process) Datetime: 09/27/2016 18:58 Pain Scale: 0 (Marquita Hooper RN) Pain Presence: None/Denies (Marquita Hooper RN) Pain Type: N/A (Marquita Hooper RN) Pain Goal: 0 (Marquita Hooper RN) Pain Relief Measures: Epidural Given (Marquita Hooper RN) LaborFlag: Labor (QS system process) Datetime: 09/27/2016 18:57 Epidural Procedure: Cath Placed (Marquita Hooper, RN) Datetime: 09/27/2016 18:56 Pulse: 83 (QS system process) SpO2 (%): 99 (QS system process) LaborFlag: Labor (QS system process) Datetime: 09/27/2016 18:51 Pulse: 83 (QS system process) SpO2 (%): 99 (QS system process) LaborFlag: Labor (QS system process) Datetime: 09/27/2016 18:49 NBP Sys/Cherie/Mean (mmHg): 150 (QS system process) : 90 (QS system process) : 115 (QS system process) Pulse: 88 (QS system process) LaborFlag: Labor (QS system process) Datetime: 09/27/2016 18:48 NBP Sys/Cherie/Mean (mmHg): 160 (QS system process) : 96 (QS system process) : 121 (QS system process) Pulse: 86 (QS system process) LaborFlag: Labor (QS system process) Datetime: 09/27/2016 18:47 NBP Sys/Cherie/Mean (mmHg): 172 (QS system process) : 108 (QS system process) : 133 (QS system process) Pulse: 76 (QS system process) Temperature (F): 98.8 (Marquita Hooper RN) Temperature (C): 37.1 (QS system process) Temperature Route: Axillary (Marquita Hooper RN) LaborFlag: Labor (QS system process) Datetime: 09/27/2016 18:46 Pulse: 87 (QS system process) SpO2 (%): 98 (QS system process) LaborFlag: Labor (QS system process) Datetime: 09/27/2016 18:45 Monitor Mode: External (Yvette Gibbons RN) Frequency (min): 2-3 (Yvette Gibbons RN) Quality: Mild (Yvette Gibbons RN) Duration (sec): 40-60 (Yvette Gibbons RN) Resting Tone (Palpate): Relaxed (Yvette Gibbons RN) Monitor Mode: External US (Yvette Gibbons RN) FHR Baseline Rate : 125 (Yvette Gibbons RN) FHR Baseline Changes: No Baseline Change (Yvette Gibbons RN) Variability: Moderate 6-25 bpm (Yvette Marhefka, RN) Accelerations: None (Yvette Marhefka, RN) Decelerations: None (Yvette Gisellehefka, RN) Pitocin (milliunit): Pitocin Remains (milliunits) @ 12 (Marquita Hooper, RN) Datetime: 09/27/2016 18:39 Procedure Verify: Correct Patient Identity; Correct Side and Site are Marked; Accurate Procedure Consent Form; Agreement on Procedure to be Done; Correct Patient Position (Matilda Zavalas, RN) Communication Comments: patient sitting up for epidural (Matilda Natalie, RN) Datetime: 09/27/2016 18:38 Anesthesia Comments: Dr. Rolon at bedside (Matilda Natalie, RN) Datetime: 09/27/2016 18:37 Epidural Positioning: Sitting (Matilda Natalie, RN) Datetime: 09/27/2016 18:35 Anesthesia Comments: Dr. Jordi notified of patient's request for epidural. (Marquita Hooper, RN) Datetime: 09/27/2016 18:32 IV/Blood Work: IV Bolus Started (Marquita Hooper, RN) Datetime: 09/27/2016 18:31 Pain Scale: 5 (Marquita Penaon, RN) Pain Presence: Intermittent (Marquita Hooper, RN) Pain Type: Contraction (Marquita Hooper, RN) Pain Location: Abdomen (Marquita Hooper, RN) Pain Goal: 0 (Marquita Hooper, RN) LaborFlag: Labor (QS system process) Datetime: 09/27/2016 18:30 Monitor Mode: External (Yvette Marhefka, RN) Frequency (min): UTD Pt sitting for epidural (Yvette Gibbons, RN) Quality: Mild (Yvette Marhefka, RN) Resting Tone (Palpate): Relaxed (Yvette Marhefka, RN) Pitocin (milliunit): Pitocin Remains (milliunits) @ 12 (Marquita Penaon, RN) Datetime: 09/27/2016 18:15 Monitor Mode: External (Yvette Marhefka, RN) Frequency (min): 2-3 (Yvette Gibbons, RN) Quality: Mild (Yvette Gibbons, RN) Duration (sec): 50-70 (Yvette Gibbons, RN) Resting Tone (Palpate): Relaxed (Yvette Gibbons RN) Pitocin (milliunit): Pitocin Remains (milliunits) @ 12 (Marquita Hooper RN) Datetime: 09/27/2016 18:06 Comments: RN at bedside attemtping to locate fhts (Matilda Estrada, RN) Datetime: 09/27/2016 18:00 Monitor Mode: External; Palpation (Matilda Estrada, RN) Frequency (min): 2-4 (Matilda Estrada, RN) Quality: Mild/Moderate (Matilda Natalie, RN) Duration (sec): 40-70 (Matilda Natalie, RN) Resting Tone (Palpate): Relaxed (Matilda Estrada, RN) Monitor Mode: External US (Matilda Estrada, RN) FHR Baseline Rate : 135 (Matilda Estrada, RN) Variability: Moderate 6-25 bpm (Matilda Natalie, RN) Accelerations: 15X15 (Matilda Natalie, RN) Decelerations: None (Matilda Natalie, RN) Pitocin (milliunit): Pitocin Remains (milliunits) @ 12 (Marquita Hooper, RN) Pitocin (milliunit): Pitocin Remains (milliunits) @ (Annotations: 12) (Marquita Hooper, RN) Datetime: 09/27/2016 17:45 Monitor Mode: External (Matilda Natalie, RN) Frequency (min): 2-4 (Matilda Natalie, RN) Quality: Mild/Moderate (Matilda Natalie, RN) Duration (sec): 40-70 (Matilda Natalie, RN) Resting Tone (Palpate): Relaxed (Matilda Natalie, RN) Monitor Mode: External US (Matilda Natalie, RN) FHR Baseline Rate : 135 (Matilda Natalie, RN) Variability: Moderate 6-25 bpm (Matilda Natalie, RN) Accelerations: 15X15 (Matilda Antalie, RN) Decelerations: None (Matilda Natalie, RN) Pitocin (milliunit): Pitocin Remains (milliunits) @ 12 (Marquita Hooper, RN) Datetime: 09/27/2016 17:30 Monitor Mode: External; Palpation (Matilda Natalie, RN) Frequency (min): 2-4 (Matilda Natalie, RN) Quality: Mild/Moderate (Matilda Natalie, RN) Duration (sec): 40-70 (Matilda Natalie, RN) Resting Tone (Palpate): Relaxed (Matilda Natalie, RN) Monitor Mode: External US (Matilda Natalie, RN) FHR Baseline Rate : 135 (Matilda Natalie, RN) Variability: Moderate 6-25 bpm (Matilda Natalie, RN) Accelerations: 15X15 (Matilda Natalie, RN) Decelerations: Early (Matilda Natalie, RN) Pitocin (milliunit): Pitocin Remains (milliunits) @ 12 (Marquita Hooper, RN) Datetime: 09/27/2016 17:15 Monitor Mode: External; Palpation (Marquita Hooper, RN) Frequency (min): 1.5 (Marquita Hooper, RN) Quality: Mild (Marquita Hooper, RN) Duration (sec): 50-70 (Marquita Hooper, RN) Resting Tone (Palpate): Relaxed (Marquita Hooper, RN) Monitor Mode: External US (Marquita Hooper, RN) FHR Baseline Rate : 135 (Marquita Hooper, RN) Variability: Minimal - Undetectable to <=5 bpm (Marquita Hooper, RN) Accelerations: None (Marquita Hooper, RN) Decelerations: Early (Marquita Hooper, RN) Pitocin (milliunit): Pitocin Remains (milliunits) @ 12 (Marquita Hooper, RN) Datetime: 09/27/2016 17:00 Monitor Mode: External; Palpation (Marquita Hooper, RN) Frequency (min): 2-4 (Marquita Hooper, RN) Quality: Mild (Marquita Hooper, RN) Duration (sec): 50-70 (Marquita Hooper, RN) Resting Tone (Palpate): Relaxed (Marquita Hooper, RN) Monitor Mode: External US (Marquita Hooper, RN) FHR Baseline Rate : 140 (Marquita Hooper, RN) Variability: Minimal - Undetectable to <=5 bpm (Marquita Hooper, RN) Accelerations: None (Marquita Hooper, RN) Decelerations: Early (Marquita Hooper, RN) Pitocin (milliunit): Pitocin Increased to (milliunits) @ 12 (Marquita Hooper, RN) Datetime: 09/27/2016 16:45 Monitor Mode: External; Palpation (Marquita Hooper, RN) Frequency (min): 2-3 (Marquita Hooper RN) Quality: Mild (Marquita Hooper RN) Duration (sec): 50-70 (Marquita Hooper RN) Resting Tone (Palpate): Relaxed (Marquita Hooper RN) Monitor Mode: External US (Marquita Hooper RN) FHR Baseline Rate : 135 (Marquita Hooper RN) Variability: Moderate 6-25 bpm (Marquita Hooper RN) Accelerations: 15X15 (Marquita Hooper RN) Decelerations: None (Marquita Hooper RN) Pitocin (milliunit): Pitocin Remains (milliunits) @ 10 (Marquita Hooper RN) Datetime: 09/27/2016 16:41 Temperature (F): 98.6 (Marquita Hooper RN) Temperature (C): 37.0 (QS system process) LaborFlag: Labor (QS system process) Datetime: 09/27/2016 16:30 Contraction Comments: UTD; pt in restroom. (Marquita Hooper RN) Comments: UTD; Pt. up to restroom (Marquita Hooper RN) Pitocin (milliunit): Pitocin Remains (milliunits) @ 10 (Marquita Hooper RN) Datetime: 09/27/2016 16:15 Monitor Mode: External; Palpation (Marquita Hooper RN) Frequency (min): 2-3 (Marquita Hooper RN) Quality: Mild (Marquita Hooper RN) Duration (sec): 50-70 (Marquita Hooper RN) Resting Tone (Palpate): Relaxed (Marquita Hooper RN) Monitor Mode: External US (Marquita Hooper RN) FHR Baseline Rate : 135 (Marquita Hooper RN) Variability: Moderate 6-25 bpm (Marquita Hooper RN) Accelerations: 15X15 (Marquita Hooper RN) Comments: Poor tracing due to maternal position sitting up in bed. (Marquita Hooper RN) Pitocin (milliunit): Pitocin Increased to (milliunits) @ 10 (Marquita Hooper RN) Datetime: 09/27/2016 16:12 I/O Interventions: Up to BR (Marquita Hooper, RN) Datetime: 09/27/2016 16:00 Monitor Mode: External; Palpation (Marquitaclarence Hooper, RN) Frequency (min): 2-3 (Marquita Penaon, RN) Quality: Mild (Marquita Hooper, RN) Duration (sec): 50-70 (Marquitaclarence Hooper, RN) Resting Tone (Palpate): Relaxed (Marquita Hooper, RN) Monitor Mode: External US (Marquita Hooper, RN) FHR Baseline Rate : 135 (Marquita Hooper, RN) Variability: Moderate 6-25 bpm (Marquita Hooper, RN) Accelerations: 15X15 (Marquita Hooper, RN) Decelerations: None (Marquitaclarence Hooper, RN) Pitocin (milliunit): Pitocin Increased to (milliunits) @ (Annotations: 8) (Marquita Hooper, RN) Datetime: 09/27/2016 15:45 Monitor Mode: External; Palpation (Matildaveronica Estrada, RN) Frequency (min): 2-3 (Marquita Hooper, RN) Quality: Mild (Matilda Natalie, RN) Duration (sec): 50-70 (Marquita Hooper, RN) Resting Tone (Palpate): Relaxed (Matilda Natalie, RN) Monitor Mode: External US (Matilda Natalie, RN) FHR Baseline Rate : 135 (Matilda Natalie, RN) Variability: Moderate 6-25 bpm (Matilda Natalie, RN) Accelerations: 15X15 (Matilda Natalie, RN) Decelerations: None (Matilda Natalie, RN) Pitocin (milliunit): Pitocin Remains (milliunits) @ (Annotations: 6) (Marquita Hooper, RN) Datetime: 09/27/2016 15:30 Monitor Mode: External; Palpation (Marquita Hooper, RN) Frequency (min): 3-5 (Marquita Hooper, RN) Quality: Mild (Marquita Hooper, RN) Duration (sec): 40-70 (Marquita Hooper, RN) Resting Tone (Palpate): Relaxed (Marquita Hooper, RN) Monitor Mode: External US (Marquita Hooper, RN) FHR Baseline Rate : 135 (Marquita Hooper, RN) Variability: Moderate 6-25 bpm (Marquita Hooper, RN) Accelerations: 15X15 (Marquita Hooper, RN) Decelerations: None (Marquita Hooper, RN) Pitocin (milliunit): Pitocin Increased to (milliunits) @ 6 (Marquita Hooper, RN) Datetime: 09/27/2016 15:24 I/O Interventions: Up to BR (Matilda Natalie, RN) Datetime: 09/27/2016 15:15 Monitor Mode: External; Palpation (Matilda Natalie, RN) Frequency (min): 4-6 (Matilda Natalie, RN) Quality: Mild (Matilda Natalie, RN) Duration (sec): 60-80 (Matilda Natalie, RN) Resting Tone (Palpate): Relaxed (Matilda Natalie, RN) Monitor Mode: External US (Matilda Natalie, RN) Variability: Moderate 6-25 bpm (Matilda Natalie, RN) Accelerations: 15X15 (Matilda Natalie, RN) Decelerations: None (Matilda Natalie, RN) Pitocin (milliunit): Pitocin Increased to (milliunits) @ 4 (Marquita Hooper, RN) Datetime: 09/27/2016 15:00 Monitor Mode: External; Palpation (Marquita Hooper, RN) Frequency (min): 4-6 (Marquita Hooper, RN) Quality: Mild (Marquita Hooper, RN) Duration (sec): 60-80 (Marquita Hooper, RN) Resting Tone (Palpate): Relaxed (Marquita Hooper, RN) Monitor Mode: External US (Marquita Hooper, RN) FHR Baseline Rate : 135 (Marquita Hooper, RN) Variability: Moderate 6-25 bpm (Marquita Hooper, RN) Accelerations: Prolonged (Marquita Hooper, RN) Decelerations: None (Marquita Hooper, RN) Pitocin (milliunit): Pitocin Remains (milliunits) @ (Annotations: 2) (Marquita Hooper, RN) Datetime: 09/27/2016 14:56 Pitocin (milliunit): Pitocin Started (milliunits) @ 2 (Marquita Hooper, RN) Datetime: 09/27/2016 14:47 NBP Sys/Cherie/Mean (mmHg): 140 (QS system process) : 76 (QS system process) : 98 (QS system process) Pulse: 82 (QS system process) Temperature (F): 98.6 (Marquita Hooper RN) Temperature (C): 37.0 (QS system process) Temperature Route: Axillary (Marquita Hooper RN) LaborFlag: Labor (QS system process) Datetime: 09/27/2016 14:00 Dilatation (cm): 2.0 (Marquita Hooper RN) Effacement (%): 80 (Marquita Hooper RN) Station: -2 (Marquita Hooper RN) Exam by: Deandra Hooper RN (Marquita Hooper RN) Membrane Status: Ruptured (Marquita Hooper RN) Membranes Ruptured Date/Time: 09/27/2016 08:00 (Marquita Hooper RN) Membranes Rupture Method: Spontaneous (Marquita Hooper RN) Amniotic Fluid Color: Particulate Meconium (Marquita Hooper RN) Amniotic Fluid Amount: Small (Marquita Hooper RN) Amniotic Fluid Odor: Normal (Marquita Hooper RN) Vaginal Bleeding: Normal Show (Marquita Hooper RN) Datetime: 09/27/2016 13:34 Comments: Monitors removed. Pt. ambulating per MD order. (Marquita Hooper, RN) Datetime: 09/27/2016 13:30 Monitor Mode: External; Palpation (Marquita Hooper, RN) Frequency (min): Irreg (Marquita Hooper, RN) Quality: Mild (Marquita Hooper, RN) Duration (sec): 120-180 (Marquita Hooper, RN) Resting Tone (Palpate): Relaxed (Marquita Hooper, RN) Monitor Mode: External US (Marquita Hooper, RN) FHR Baseline Rate : 130 (Marquita Hooper, RN) Variability: Moderate 6-25 bpm (Marquita Hooper, RN) Accelerations: 15X15 (Marquita Hooper, RN) Decelerations: None (Marquita Hooper, RN) Datetime: 09/27/2016 13:19 Communication: Provider Orders Received; Call/Page Placed to Provider (Marquita Hooper RN) Provider Notified (Name): Dr. Carcamo (Marquita Hooper RN) Communication Comments: Notified of fhts, ctx, SVE, labs, and v/s. Received orders to admit to L_D for labor. May ambulate for 1 hour, then recheck cervix. If unchanged, start Pitocin per protocol. (Marquita Hooper RN) Datetime: 09/27/2016 13:03 NBP Sys/Cherie/Mean (mmHg): 131 (QS system process) : 84 (QS system process) : 101 (QS system process) Pulse: 88 (QS system process) LaborFlag: Labor (QS system process) Datetime: 09/27/2016 13:00 Monitor Mode: External; Palpation (Marquita Hooper RN) Frequency (min): Irreg (Marquita Hooper RN) Quality: Mild (Marquita Hooper RN) Duration (sec): 120-180 (Marquita Hooper, RN) Resting Tone (Palpate): Relaxed (Marquita Hooper, RN) Monitor Mode: External US (Marquita Hooper, RN) FHR Baseline Rate : 130 (Marquita Hooper, RN) Variability: Moderate 6-25 bpm (Marquita Hooper, RN) Accelerations: 15X15 (Marquita Hooper, RN) Decelerations: None (Marquita Hooper, RN) IV/Blood Work: IV Started (Marquita Hooper, RN) Datetime: 09/27/2016 12:30 Monitor Mode: External; Palpation (Marquita Hooper, RN) Frequency (min): x1 (Marquita Hooper, RN) Quality: Mild (Marquita Hooper, RN) Duration (sec): 120 (Marquita Hooper, RN) Resting Tone (Palpate): Relaxed (Marquita Hooper, RN) Monitor Mode: External US (Marquita Hooper, RN) FHR Baseline Rate : 135 (Marquita Hooper, RN) Variability: Moderate 6-25 bpm (Marquita Hooper, RN) Accelerations: 15X15 (Marquita Hooper, RN) Decelerations: None (Marquita Hooper, RN) Datetime: 09/27/2016 12:22 Pain Scale: 0 (Marquita Hooper RN) Pain Presence: None/Denies (Marquita Hooper, RN) Pain Type: N/A (Marquita Hooper, RN) Pain Relief Measures: Comfort Measures (Marquita Hooper, RN) Pain Coping: Breathing Through Contractions (Marquita Hooper, RN) Level of Consciousness: Fully Conscious (Marquita Hooper, RN) DTR's/Clonus: DTRs 1+; No Clonus (Marquita Hooper, RN) Headache: Denies (Marquita Hooper, RN) Breath Sounds, Left: Clear and Equal (Marquita Hooper RN) Breath Sounds, Right: Clear and Equal (Marquita Hooper, RN) Nausea/Vomiting: Denies (Marquita Hooper, RN) RUQ Epigastric Pain: Denies (Marquita Hooper, RN) LaborFlag: Labor (QS system process) Datetime: 09/27/2016 11:50 NBP Sys/Cherie/Mean (mmHg): 129 (QS system process) : 81 (QS system process) : 100 (QS system process) Pulse: 94 (QS system process) LaborFlag: Labor (QS system process) Datetime: 09/27/2016 11:48 Comments: Monitors applied, explained to pt. (Marquita Penaon, RN) Patient Position/Activity: Right Lateral (Marquita Penaon, RN) Datetime: 09/27/2016 11:47 Comments: Monitors applied. Explained to pt. (Marquita Hooper, RN) Patient Position/Activity: Right Lateral (Marquita Hooper, RN) Datetime: 09/27/2016 11:46 Stage of : Labor (Marquita Hooper, RN)
[2016-09-27] MEDS ORDERED: OXYTOCIN/NORMAL SALINE 20 UNIT/1,000 ML RTUINJ ONE (21:53)
[2016-09-27] MEDS ORDERED: MISOPROSTOL 0.2 MG TABLET ONE (21:53)
[2016-09-27] MEDS ORDERED: LIDOCAINE 1% INJ-PF (10 MG/ML) 30 ML SDV ONE (21:53)
[2016-09-28] MEDS ORDERED: ZOLPIDEM TARTRATE 5 MG TABLET PO PRN (02:23)
[2016-09-28] MEDS ORDERED: MEASLES,MUMPS&RUBELLA VACC/PF 0.5 ML VIAL SUBCUT PRN (02:23)
[2016-09-28] MEDS ORDERED: DIBUCAINE 1% OINTMENT 28 GM TP PRN (02:23)
[2016-09-28] MEDS ORDERED: DIPH/PERTUSS(ACELL)/TETANUS VAC/PF 0.5 ML SYR (>=10YO) IM PRN (02:23)
[2016-09-28] MEDS ORDERED: OXYTOCIN/NORMAL SALINE 1,000 ML IV PRN (02:23)
[2016-09-28] MEDS ORDERED: BENZOCAINE/MENTHOL AEROSOL SPRAY 56 ML TOP PRN (02:23)
[2016-09-28] MEDS ORDERED: ACETAMINOPHEN WITH CODEINE #3 TABLET PO PRN ×2 (02:23)
--- NOTE | 2016-09-28 02:45 | Delivery Summary ---
Del Sum A-C Datetime Report Generated by CPN: 09/28/2016 02:44 ADMISSION DATA Chief Complaint: Suspected Ruptured Membranes Indication for Induction: PROM Admission Impression: Term, Intrauterine ; Ruptured Membranes Admit Provider Comments: Term srom this am 0830. pitocin stopped after epidural for late decelerations but now has accels and good variability. Restart pitocin. gbs neg DELIVERY PERSONNEL Delivery Doctor:: Elvia Carcamo MD Labor and Delivery Nurse:: Judy Mcintosh RNtie sawyer Nurse:: Kala Almanzar RN Nursery Nurse:: JUAN MANUEL Neil Tech/PRESIDENT AND CHIEF OPERATING OFFICER: Maryam Pena, ST MATERNAL INFORMATION Delivery Anesthesia: Epidural Medications After Delivery: Pitocin Bolus-Please Comment Meds After Delivery Comment: Pitocin 20 units/1000 ml NS bolus following placenta Estimated Blood Loss (ml): 350 Maternal Complications: None Provider Comments: over perineal lac w repair. live male infant ap8/9. peds present for thick meconium. spontaneous intact placenta 3vc LABOR SUMMARY EDC: 09/26/2016 00:00 No. Babies in Womb: 1 Attempted: No Labor Anesthesia: Epidural LABOR INFORMATION Reason for Induction: Not Applicable Onset of Labor: 09/27/2016 19:15 Complete Dilatation: 09/28/2016 21:31 Oxytocin: Augmentation Group B Beta Strep: negative Antibiotics # of Doses: 0 Antibiotics Time of Last Dose: n/a Steroids Given: None Reason Steroids Not Administered: Not Applicable MEMBRANES Membranes Rupture Method: Spontaneous Rupture of Membranes: 09/27/2016 08:00 Length of Rupture (hr): 16.67 Amniotic Fluid Color: Particulate Meconium Amniotic Fluid Amount: Small Amniotic Fluid Odor: Normal STAGES OF LABOR Stage 1 hr: 26 Stage 1 min: 16 Stage 2 hr: -20 Stage 2 min: -51 Stage 3 hr: 0 Stage 3 min: 3 Total Time in Labor hr: 5 Total Time in Labor min: 28 VAGINAL DELIVERY Laceration Extension: First Degree Laceration Type: Perineal Laceration Repair: Yes Laceration Repair Note: 1st deg perineal /vaginal lac repaired with short running stitch. Sponge Count Correct: N/A Sharps Count Correct: N/A CSECTION DELIVERY Primary Indication: N/A Secondary Indication: N/A CSection Incidence: N/A Labor: N/A Elective: N/A CSection Incision: N/A BABY A INFORMATION Delivery Date/Time: 09/28/2016 00:40 Method of Delivery: Vaginal Born in Route : No : N/A Forceps: N/A Vacuum Extraction: N/A Shoulder Dystocia : No PRESENTATION/POSITION BABY A Presentation: Cephalic Cephalic Presentation: Vertex Vertex Position: Right Occipital Anterior Breech Presentation: N/A PLACENTA INFORMATION BABY A Placenta Delivery Time : 09/28/2016 00:43 Placenta Method of Delivery: Spontaneous Placenta Status: Delivered SCORES BABY A Heart Rate 1 min: >100 bpm Resp Effort 1 min: Good Cry Reflex Irritability 1 min: Cough or Sneeze or Pulls Away Muscle Tone 1 min: Active Motion Color 1 min: Blue/Pale Resuscitation Effort 1 min: Tactile Stimulation SCORE 1 MIN: 8 Heart Rate 5 min: >100 bpm Resp Effort 5 min: Good Cry Reflex Irritability 5 min: Cough or Sneeze or Pulls Away Muscle Tone 5 min: Active Motion Color 5 min: Body [place], Extremities Blue Resuscitation Effort 5 min: Tactile Stimulation SCORE 5 MIN: 9 INFORMATION BABY A Gestational Age at Delivery: 40.2 Gestational Status: Full Term- 39- 40.6 Weeks Outcome : Liveborn Infant Condition : Stable Sex: Male IDENTIFICATION BABY A Verification Date/Time: 09/28/2016 00:48 ID Band Number: [id number] Mother's Name Verified: Yes RN Verifying : KJose Rocha RN Additional Verifying Personnel: B. Ring, RN WEIGHT/LENGTH BABY A Birthweight (gm): 4128 Infant Weight (lb): 9 Weight (oz): 2 Length (in): 20.00 Length (cm): 50.80 CORD INFORMATION BABY A No. Cord Vessels: 3 Nuchal Cord : N/A Cord Blood Taken: Yes-For Storage ([facility] [place]'s Blood type +) Suction: None ASSESSMENT BABY A Infant Complications: Meconium Physical Findings at Delivery: Within Normal Limits Physical Findings- Other: intial assessment to be performed by nursery who is at bedside Infant Respirations: Appears Normal Skin to Skin: Yes Skin to Skin Time (min): 60 [employer]fter [employer] Design Layout/ALS Called : No Care By: Deandra Adhikari RN Transferred To: Remains with Mother SIGNATURES Signature: with User ID: [email or web address]
[2016-09-28] MEDS ORDERED: IBUPROFEN 800 MG TABLET ONE (02:54)
--- NOTE | 2016-09-28 03:44 | Admission Physical ---
Datetime Report Generated by CPN: 09/28/2016 03:43 CURRENT ADMISSION Hx Assessment: The History has been Reviewed and is Current Chief Complaint: Suspected Ruptured Membranes Indication for Induction: PROM Admit Plan: Admit to Unit; Initiate Labor Augmentation Protocol ALLERGIES Medication Allergies: No Medication Allergies: No Known Allergies (09/25/2016) Medication Allergies: No Known Allergies (08/20/2016) Medication Allergies: No Known Allergies (07/06/2016) Latex: No Latex Allergies Food Allergies: jalepenos OBSTETRICAL HISTORY EDC: 09/26/2016 00:00 : 1 Para: 0 Term: 0 : 0 SAB: 0 IAB: 0 Ectopic: 0 Livin Cesareans: 0 VBACs: 0 Multiple Births: 0 Gestational Diabetes: No Rh Sensitization: No Incompetent Cervix: No RUTHY: No Infertility: No ART Treatment: No Uterine Anomaly: No IUGR: No Hx Previous C/S: No Macrosomia: No Hx Loss/Stillborn: No PIH: No Hx : No Placenta Previa/Abruption: No Depression/PP Depression: No PTL/PROM: No Post Hemorrhage: No Obstetrical History Comments: G1 - current Infant has mass in abdomen monitored by [facility] SEE RECORDS Alcohol: No Marijuana : No Cocaine: No Other Illicit Drugs: No Cigarettes: Former Smoker. 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: No Heart Disease: No Hosp/Surgery: Yes Autoimmune Disorder: No Anesthetic Complications: No Kidney Disease: No Abnormal Pap Smear: No Neuro/Epilepsy: No Psychiatric Disorders: No Other Medical Diseases: No Hepatitis/Liver Disease: No Significant Family History: No Varicosities/Phlebitis: No Trauma/Violence : No Thyroid Dysfunction: No Medical History Comments: Hospitalized for possible appendicitis INFECTIOUS HISTORY Gonorrhea: No Genital Herpes: No Chlamydia: No Tuberculosis: No Syphilis: No Hepatitis: No HIV/AIDS Exposure: No Rash or Viral Illness: No HPV: No PHYSICAL EXAM General: Normal HEENT: Deferred Neurologic: Deferred Thyroid: Deferred Heart: Normal Lungs: Normal Breast: Deferred Back: Deferred Abdomen: Normal Genitourinary Exam: Normal Extremities: Normal DTRs: Normal Pelvic Type: Adequate Vital Signs: Reviewed; Within Normal Limits MEMBRANES Membranes: Ruptured Amniotic Fluid Color: Meconium, Light FETUS A EGA: 40.1 FHR- Baseline: 140 Variability: Moderate 6-25bpm Accelerations: 15X15 Decelerations: Early; Late FHR Category: Category II Admit Comment: Term srom this am 0830. pitocin stopped after epidural for late decelerations but now has accels and good variability. Restart pitocin. gbs neg PLANS FOR LABOR AND DELIVERY Labor and Delivery: None Pain Management: Medications Feeding Preference: Breast Benefit of Breast Feed Discussed: Yes Circumcision: Yes INFORMED CONSENT Signature: with User ID: [email or web address]
[2016-09-28] MEDS: IBUPROFEN 800 MG TABLET PO SCH ×3 (05:44→21:53)
--- NOTE | 2016-09-28 07:01 | L&D Flow Sheet ---
LD Flowsheet Datetime Report Generated by CPN: 09/28/2016 07:00 Datetime: 09/28/2016 02:30 NBP Sys/Cherie/Mean (mmHg): 128 (QS system process) : 59 (QS system process) : 83 (QS system process) Pulse: 88 (QS system process) Datetime: 09/28/2016 01:56 NBP Sys/Cherie/Mean (mmHg): 138 (QS system process) : 81 (QS system process) : 104 (QS system process) Pulse: 101 (QS system process) Respirations: 15 (Judy Sinawood, RN) Datetime: 09/28/2016 00:45 Stage of : Recovery (Judy Mcintosh, RN) Temperature (F): 99.1 (Judy Andinowood, RN) Temperature (C): 37.3 (QS system process) Temperature Route: Oral (Judy Mcintosh, RN) Pain Scale: 0 (Judy Andinowood, RN) Datetime: 09/28/2016 00:44 NBP Sys/Cherie/Mean (mmHg): 124 (QS system process) : 65 (QS system process) : 89 (QS system process) Pulse: 107 (QS system process) Respirations: 14 (Judy Ledgerwood, RN) LaborFlag: Labor (QS system process) Datetime: 09/28/2016 00:40 Stage 2 Comments: of vital male baby. (Judy Mcintosh, RN) Datetime: 09/28/2016 00:30 NBP Sys/Cherie/Mean (mmHg): 144 (QS system process) : 81 (QS system process) : 106 (QS system process) Pulse: 113 (QS system process) Monitor Mode: External (Judy Mcintosh, JUAN MANUEL) Frequency (min): 1.5-3 (Judy Mcintosh, RN) Quality: Moderate to Strong (Judy Mcintosh, RN) Duration (sec): 50-60 (Judy Joseegeralex, RN) Duration Criteria: Less than Two 120 Second Contractions (Judy Mcintosh, RN) Pattern: Normal: <= 5 Contractions in 10 Minutes (Judy Mcintosh, RN) Resting Tone (Palpate): Relaxed (Judy Mcintosh, RN) Monitor Mode: External US (Judy Mcintosh, RN) FHR Baseline Rate : 155 (Judy Mcintosh, RN) FHR Baseline Changes: No Baseline Change (Judy Mcintosh, RN) Variability: Minimal - Undetectable to <=5 bpm (Judy Trippgeralex, RN) Accelerations: None (Judy Joseegerwood, RN) Decelerations: None (Judy Mcintosh, RN) Pitocin (milliunit): Pitocin Remains (milliunits) @ 4 (Judy Ledgerwood, RN) LaborFlag: Labor (QS system process) Datetime: 09/28/2016 00:15 Monitor Mode: External (Judy Ledgerwood, RN) Frequency (min): 1.5-3 (Judy Ledgerwood, RN) Quality: Moderate to Strong (Judy Ledgerwood, RN) Duration (sec): 60-80 (Judy Ledgerwood, RN) Duration Criteria: Less than Two 120 Second Contractions (Judy Ledgerwood, RN) Pattern: Normal: <= 5 Contractions in 10 Minutes (Judy Ledgerwood, RN) Resting Tone (Palpate): Relaxed (Judy Ledgerwood, RN) Monitor Mode: External US (Judy Ledgerwood, RN) FHR Baseline Rate : 155 (Judy Ledgerwood, RN) FHR Baseline Changes: No Baseline Change (Judy Ledgerwood, RN) Variability: Minimal - Undetectable to <=5 bpm (Judy Ledgerwood, RN) Accelerations: None (Judy Ledgerwood, RN) Decelerations: None (Judy Ledgerwood, RN) Pitocin (milliunit): Pitocin Remains (milliunits) @ (Annotations: 4) (Judy Ledgerwood, RN) Datetime: 09/28/2016 00:13 NBP Sys/Cherie/Mean (mmHg): 125 (QS system process) : 64 (QS system process) : 87 (QS system process) Pulse: 105 (QS system process) LaborFlag: Labor (QS system process) Datetime: 09/28/2016 00:10 Communication Comments: Dr Carcamo at bedside (Judy Ledgerwood, RN) Datetime: 09/28/2016 00:07 Pitocin (milliunit): Pitocin Increased to (milliunits) @ 4 ([facility]) Datetime: 09/28/2016 00:00 Monitor Mode: External; Palpation (Judy Ledgerwood, RN) Frequency (min): 1.5-4.5 (Judy Ledgerwood, RN) Quality: Moderate to Strong (Judy Ledgerwood, RN) Duration (sec): 60-90 (Judy Ledgerwood, RN) Duration Criteria: Less than Two 120 Second Contractions (Judy Ledgerwood, RN) Pattern: Normal: <= 5 Contractions in 10 Minutes (Judy Ledgerwood, RN) Resting Tone (Palpate): Relaxed (Judy Ledgerwood, RN) Monitor Mode: External US (Judy Ledgerwood, RN) FHR Baseline Rate : 155 (Judy Ledgerwood, RN) FHR Baseline Changes: No Baseline Change (Judy Ledgerwood, RN) Variability: Minimal - Undetectable to <=5 bpm (Judy Ledgerwood, RN) Accelerations: None (Judy Ledgerwood, RN) Decelerations: None (Judy Ledgerwood, RN) Pitocin (milliunit): Pitocin Remains (milliunits) @ 2 (Judy Ledgerwood, RN) Datetime: 09/27/2016 23:58 NBP Sys/Cherie/Mean (mmHg): 126 (QS system process) : 78 (QS system process) : 93 (QS system process) Pulse: 111 (QS system process) LaborFlag: Labor (QS system process) Datetime: 09/27/2016 23:57 Pushing Position: Pushing with Contractions (Judy Ledgerwood, RN) Pushing Progress: Molding Noted; Pushing Effectively with Contractions (Judy Ledgerwood, RN) Datetime: 09/27/2016 23:50 Pitocin (milliunit): Pitocin Started (milliunits) @ 2 (Judy Ledgerwood, RN) Datetime: 09/27/2016 23:45 Communication: Provider at Bedside (Judy Ledgerwood, RN) Communication Comments: Dr Carcamo at bedside (Judy Mcintosh RN) Datetime: 09/27/2016 23:43 NBP Sys/Cherie/Mean (mmHg): 130 (QS system process) : 59 (QS system process) : 85 (QS system process) Pulse: 114 (QS system process) LaborFlag: Labor (QS system process) Datetime: 09/27/2016 23:30 Monitor Mode: External; Palpation (Judy Mcintosh RN) Frequency (min): 1.5-4.5 (Judy Mcintosh, RN) Quality: Moderate to Strong (Judy Mcintosh, RN) Duration (sec): 50-90 (Judy Mcintosh, JUAN MANUEL) Duration Criteria: Less than Two 120 Second Contractions (Judy Mcintosh, RN) Pattern: Normal: <= 5 Contractions in 10 Minutes (Judy Mcintosh, RN) Resting Tone (Palpate): Relaxed (Judy Mcintosh, RN) Monitor Mode: External US (Judy Mcintosh RN) FHR Baseline Rate : 155 (Judy Ledgerwood, RN) FHR Baseline Changes: No Baseline Change (Judy Mcintosh, RN) Variability: Moderate 6-25 bpm (Judy Ledgerwood, RN) Accelerations: 15X15 (Judy Trippgeralex, RN) Decelerations: None (Judy Mcintosh, RN) Pushing Position: Pushing with Contractions (Judy Mcintosh, RN) Pushing Progress: Molding Noted; Ineffective Pushing (Judy Mcintosh, RN) Stage 2 Comments: RN at bedside continuously assessing FHRs while pt. pushing with contractions. (Judy Mcintosh, RN) Datetime: 09/27/2016 23:29 NBP Sys/Cherie/Mean (mmHg): 119 (QS system process) : 66 (QS system process) : 86 (QS system process) Pulse: 115 (QS system process) LaborFlag: Labor (QS system process) Datetime: 09/27/2016 23:14 NBP Sys/Cherie/Mean (mmHg): 142 (QS system process) : 65 (QS system process) : 94 (QS system process) Pulse: 116 (QS system process) LaborFlag: Labor (QS system process) Datetime: 09/27/2016 23:11 Pushing Position: Pushing with Contractions (Judy Ledgerwood, RN) Pushing Progress: Molding Noted; Pushing Effectively with Contractions (Judy Ledgerwood, RN) Datetime: 09/27/2016 23:00 Monitor Mode: External; Palpation (Judy Mcintosh, RN) Frequency (min): 2.5-5 (Judy Ledgerwood, RN) Quality: Moderate (Judy Ledgerwood, RN) Duration (sec): 50-70 (Judy Ledgerwood, RN) Duration Criteria: More than Two 120 Second or Greater Contractions (Judy Ledgerwood, RN) Pattern: Normal: <= 5 Contractions in 10 Minutes (Judy Ledgerwood, RN) Resting Tone (Palpate): Relaxed (Judy Ledgerwood, RN) Monitor Mode: External US (Judy Joseegerwood, RN) FHR Baseline Rate : 145 (Judy Ledgerwood, RN) FHR Baseline Changes: No Baseline Change (Judy Ledgerwood, RN) Variability: Moderate 6-25 bpm (Judy Ledgerwood, RN) Accelerations: 15X15 (Judy Ledgerwood, RN) Decelerations: Late (Judy Ledgerwood, RN) Datetime: 09/27/2016 22:58 NBP Sys/Cherie/Mean (mmHg): 131 (QS system process) : 63 (QS system process) : 90 (QS system process) Pulse: 106 (QS system process) LaborFlag: Labor (QS system process) Datetime: 09/27/2016 22:44 Pushing: Coached on Pushing (Judy Ledgerwood, RN) Datetime: 09/27/2016 22:43 NBP Sys/Cherie/Mean (mmHg): 131 (QS system process) : 64 (QS system process) : 89 (QS system process) Pulse: 97 (QS system process) LaborFlag: Labor (QS system process) Datetime: 09/27/2016 22:30 Monitor Mode: External (Judy Ledgerwood, RN) Frequency (min): 1.5-4.5 (Judy Ledgerwood, RN) Quality: Moderate (Judy Ledgerwood, RN) Duration (sec): 60-80 (Judy Ledgerwood, RN) Duration Criteria: Less than Two 120 Second Contractions (Judy Ledgerwood, RN) Pattern: Normal: <= 5 Contractions in 10 Minutes (Judy Ledgerwood, RN) Resting Tone (Palpate): Relaxed (Judy Ledgerwood, RN) Monitor Mode: External US (Judy Ledgerwood, RN) FHR Baseline Rate : 145 (Judy Ledgerwood, RN) FHR Baseline Changes: No Baseline Change (Judy Ledgerwood, RN) Variability: Moderate 6-25 bpm (Judy Ledgerwood, RN) Accelerations: 10X10 (Judy Ledgerwood, RN) Decelerations: Late (Judy Ledgerwood, RN) Datetime: 09/27/2016 22:29 NBP Sys/Cherie/Mean (mmHg): 133 (QS system process) : 65 (QS system process) : 92 (QS system process) Pulse: 96 (QS system process) LaborFlag: Labor (QS system process) Datetime: 09/27/2016 22:14 NBP Sys/Cherie/Mean (mmHg): 135 (QS system process) : 67 (QS system process) : 93 (QS system process) Pulse: 97 (QS system process) LaborFlag: Labor (QS system process) Datetime: 09/27/2016 22:00 Monitor Mode: External (Judy Ledgerwood, RN) Frequency (min): 1-4 (Judy Ledgeralex, RN) Quality: Moderate (Judy Ledgerwood, RN) Duration (sec): 50-80 (Judy Ledgerwood, RN) Duration Criteria: Less than Two 120 Second Contractions (Judy Ledgerwood, RN) Pattern: Normal: <= 5 Contractions in 10 Minutes (Judy Ledgerwood, RN) Resting Tone (Palpate): Relaxed (Judy Ledgerwood, RN) Monitor Mode: External US (Judy Ledgerwood, RN) FHR Baseline Rate : 145 (Judy Ledgerwood, RN) FHR Baseline Changes: No Baseline Change (Judy Ledgerwood, RN) Variability: Moderate 6-25 bpm (Judy Ledgerwood, RN) Accelerations: None (Judy Ledgerwood, RN) Decelerations: Late (Judy Ledgerwood, RN) Datetime: 09/27/2016 21:59 NBP Sys/Cherie/Mean (mmHg): 127 (QS system process) : 60 (QS system process) : 86 (QS system process) Pulse: 93 (QS system process) LaborFlag: Labor (QS system process) Datetime: 09/27/2016 21:43 NBP Sys/Cherie/Mean (mmHg): 125 (QS system process) : 70 (QS system process) : 91 (QS system process) Pulse: 96 (QS system process) LaborFlag: Labor (QS system process) Datetime: 09/27/2016 21:33 Patient Care Comments: ultrosound obtained at the bedside (Judy Ledgerwood, RN) Datetime: 09/27/2016 21:32 Communication: Provider Orders Received (Judy Trippgerwood, RN) Communication Comments: Dr Carcamo requests ultrosound at the bedside. (Judy Ledgerwood, RN) Datetime: 09/27/2016 21:31 Dilatation (cm): 10.0 (Judy Ledgerwood, RN) Effacement (%): 100 (Judy Ledgerwood, RN) Station: 1 (Judy Ledgerwood, RN) Exam by: Dr Carcamo (Judy Ledgerwood, RN) Datetime: 09/27/2016 21:30 Monitor Mode: External (Judy Ledgerwood, RN) Frequency (min): 1-3 (Judy Ledgerwood, RN) Quality: Moderate (Judy Ledgerwood, RN) Duration (sec): 50-80 (Judy Ledgerwood, RN) Duration Criteria: Less than Two 120 Second Contractions (Judy Ledgerwood, RN) Pattern: Normal: <= 5 Contractions in 10 Minutes (Judy Ledgerwood, RN) Resting Tone (Palpate): Relaxed (Judy Ledgerwood, RN) Monitor Mode: External US (Judy Ledgerwood, RN) FHR Baseline Rate : 145 (Judy Ledgerwood, RN) FHR Baseline Changes: No Baseline Change (Judy Ledgerwood, RN) Variability: Moderate 6-25 bpm (Judy Ledgerwood, RN) Accelerations: 10X10 (Judy Ledgerwood, RN) Decelerations: Late (Judy Ledgerwood, RN) Datetime: 09/27/2016 21:29 Communication: Provider at Bedside (Judy Trippgerwood, RN) Communication Comments: Dr Carcamo at bedside (Judy Joseegerwood, RN) Datetime: 09/27/2016 21:28 NBP Sys/Cherie/Mean (mmHg): 119 (QS system process) : 73 (QS system process) : 91 (QS system process) Pulse: 102 (QS system process) LaborFlag: Labor (QS system process) Datetime: 09/27/2016 21:14 NBP Sys/Cherie/Mean (mmHg): 116 (QS system process) : 73 (QS system process) : 87 (QS system process) Pulse: 90 (QS system process) LaborFlag: Labor (QS system process) Datetime: 09/27/2016 21:00 Monitor Mode: External (Judy Ledgerwood, RN) Frequency (min): 1-4 (Judy Ledgerwood, RN) Quality: Moderate (Judy Ledgerwood, RN) Duration (sec): 50-90 (Judy Ledgerwood, RN) Duration Criteria: Less than Two 120 Second Contractions (Judy Ledgerwood, RN) Pattern: Normal: <= 5 Contractions in 10 Minutes (Judy Ledgerwood, RN) Resting Tone (Palpate): Relaxed (Judy Ledgerwood, RN) Monitor Mode: External US (Judy Ledgerwood, RN) FHR Baseline Rate : 145 (Judy Ledgerwood, RN) FHR Baseline Changes: No Baseline Change (Judy Ledgerwood, RN) Variability: Moderate 6-25 bpm (Judy Ledgerwood, RN) Accelerations: 15X15 (Judy Ledgerwood, RN) Decelerations: Late (Judy Ledgerwood, RN) Datetime: 09/27/2016 20:58 NBP Sys/Cherie/Mean (mmHg): 119 (QS system process) : 61 (QS system process) : 82 (QS system process) Pulse: 86 (QS system process) LaborFlag: Labor (QS system process) Datetime: 09/27/2016 20:43 NBP Sys/Cherie/Mean (mmHg): 110 (QS system process) : 60 (QS system process) : 80 (QS system process) Pulse: 89 (QS system process) LaborFlag: Labor (QS system process) Datetime: 09/27/2016 20:30 Monitor Mode: External (Judy Mcintosh, RN) Frequency (min): 1.5-4.5 (Judy Ledgerwood, RN) Quality: Mild/Moderate (Judy Ledgerwood, RN) Duration (sec): 40-80 (Judy Ledgerwood, RN) Duration Criteria: Less than Two 120 Second Contractions (Judy Ledgerwood, RN) Pattern: Normal: <= 5 Contractions in 10 Minutes (Judy Ledgerwood, RN) Resting Tone (Palpate): Relaxed (Judy Ledgerwood, RN) Monitor Mode: External US (Judy Mcintosh, RN) FHR Baseline Rate : 145 (Judy Mcintosh, RN) FHR Baseline Changes: No Baseline Change (Judy Joseegerwood, RN) Variability: Moderate 6-25 bpm (Judy Ledgerwood, RN) Accelerations: None (Judy Ledgerwood, RN) Decelerations: Late (Judy Ledgerwood, RN) Datetime: 09/27/2016 20:29 NBP Sys/Cherie/Mean (mmHg): 114 (QS system process) : 66 (QS system process) : 85 (QS system process) Pulse: 81 (QS system process) LaborFlag: Labor (QS system process) Datetime: 09/27/2016 20:15 Monitor Mode: External (Judy Ledgerwood, RN) Frequency (min): 2-3 (Judy Ledgerwood, RN) Quality: Mild/Moderate (Judy Ledgerwood, RN) Duration (sec): 50-70 (Judy Ledgerwood, RN) Duration Criteria: Less than Two 120 Second Contractions (Judy Ledgerwood, RN) Pattern: Normal: <= 5 Contractions in 10 Minutes (Judy Ledgerwood, RN) Resting Tone (Palpate): Relaxed (Judy Ledgerwood, RN) Monitor Mode: External US (Judy Joseegerwood, RN) FHR Baseline Rate : 140 (Judy Ledgerwood, RN) FHR Baseline Changes: No Baseline Change (Judy Ledgerwood, RN) Variability: Moderate 6-25 bpm (Judy Ledgerwood, RN) Accelerations: None (Judy Ledgerwood, RN) Decelerations: Late (Judy Ledgerwood, RN) Datetime: 09/27/2016 20:14 NBP Sys/Cherie/Mean (mmHg): 109 (QS system process) : 61 (QS system process) : 79 (QS system process) Pulse: 85 (QS system process) LaborFlag: Labor (QS system process) Datetime: 09/27/2016 20:04 Actions for Decelerations: Provider Reviewed Strip (Judy Ledgerwood, RN) Datetime: 09/27/2016 20:00 NBP Sys/Cherie/Mean (mmHg): 110 (QS system process) : 64 (QS system process) : 77 (QS system process) Pulse: 85 (QS system process) Monitor Mode: External (Judy Ledgerwood, RN) Frequency (min): 1.5-2.5 (Judy Ledgerwood, RN) Quality: Mild/Moderate (Judy Ledgerwood, RN) Duration (sec): 60-70 (Judy Ledgerwood, RN) Duration Criteria: Less than Two 120 Second Contractions (Judy Ledgerwood, RN) Pattern: Normal: <= 5 Contractions in 10 Minutes (Judy Ledgerwood, RN) Resting Tone (Palpate): Relaxed (Judy Ledgerwood, RN) Monitor Mode: External US (Judy Ledgerwood, RN) FHR Baseline Rate : 135 (Judy Ledgerwood, RN) FHR Baseline Changes: No Baseline Change (Judy Ledgerwood, RN) Variability: Minimal - Undetectable to <=5 bpm (Judy Ledgerwood, RN) Accelerations: None (Judy Ledgerwood, RN) Decelerations: Late (Judy Ledgerwood, RN) Pitocin (milliunit): Pitocin Discontinued (Judy Ledgerwood, RN) LaborFlag: Labor (QS system process) Datetime: 09/27/2016 19:50 Patient Position/Activity: Left Lateral (Judy Ledgerwood, RN) Datetime: 09/27/2016 19:45 Monitor Mode: External (Judy Ledgerwood, RN) Frequency (min): 1.5-3.5 (Judy Ledgerwood, RN) Quality: Mild/Moderate (Judy Ledgerwood, RN) Duration (sec): 50-70 (Judy Ledgerwood, RN) Duration Criteria: Less than Two 120 Second Contractions (Judy Ledgerwood, RN) Pattern: Normal: <= 5 Contractions in 10 Minutes (Judy Ledgerwood, RN) Resting Tone (Palpate): Relaxed (Judy Ledgerwood, RN) Monitor Mode: External US (Judy Ledgerwood, RN) FHR Baseline Rate : 135 (Judy Ledgerwood, RN) FHR Baseline Changes: No Baseline Change (Judy Ledgerwood, RN) Variability: Minimal - Undetectable to <=5 bpm (Judy Ledgerwood, RN) Accelerations: None (Judy Ledgerwood, RN) Decelerations: Late (Judy Ledgerwood, RN) Pitocin (milliunit): Pitocin Remains (milliunits) @ 12 (Judy Ledgerwood, RN) Datetime: 09/27/2016 19:43 NBP Sys/Cherie/Mean (mmHg): 122 (QS system process) : 89 (QS system process) : 101 (QS system process) Pulse: 93 (QS system process) LaborFlag: Labor (QS system process) Datetime: 09/27/2016 19:30 Monitor Mode: External (Judy Ledgerwood, RN) Frequency (min): 1.5-3.5 (Judy Ledgerwood, RN) Quality: Mild/Moderate (Judy Ledgerwood, RN) Duration (sec): 50-90 (Judy Ledgerwood, RN) Duration Criteria: Less than Two 120 Second Contractions (Judy Ledgerwood, RN) Pattern: Normal: <= 5 Contractions in 10 Minutes (Judy Ledgerwood, RN) Resting Tone (Palpate): Relaxed (Judy Ledgerwood, RN) Monitor Mode: External US (Judy Ledgerwood, RN) FHR Baseline Changes: No Baseline Change (Judy Ledgerwood, RN) Variability: Moderate 6-25 bpm (Judy Ledgerwood, RN) Accelerations: None (Judy Ledgerwood, RN) Decelerations: Late (Judy Ledgerwood, RN) Pitocin (milliunit): Pitocin Remains (milliunits) @ 12 (Judy Ledgerwood, RN) Datetime: 09/27/2016 19:24 Pain Scale: 0 (Judy Mcintosh RN) Pain Presence: None/Denies (Judy Mcintosh RN) Vaginal Bleeding: None (Judy Mcintosh RN) Level of Consciousness: Fully Conscious (Judy Mcintosh, RN) DTR's/Clonus: DTRs 2+; No Clonus (Judy Mcintosh, JUAN MANUEL) Headache: Denies (Judy Mcintosh RN) Breath Sounds, Left: Clear and Equal (Judy Mcintosh RN) Breath Sounds, Right: Clear and Equal (Judy Mcintosh, RN) Nausea/Vomiting: Denies (Judy Mcintosh RN) RUQ Epigastric Pain: Denies (Judy Mcintosh, JUAN MANUEL) Instructional Method: Demo; Verbal; Patient Instructed (Judy Mcintosh RN) Plan of Care: Plan of Care Discussed; Vaginal Delivery (Judy Mcintosh RN) LaborFlag: Labor (QS system process) Datetime: 09/27/2016 19:23 NBP Sys/Cherie/Mean (mmHg): 141 (QS system process) : 73 (QS system process) : 101 (QS system process) Pulse: 107 (QS system process) LaborFlag: Labor (QS system process) Datetime: 09/27/2016 19:22 NBP Sys/Cherie/Mean (mmHg): 134 (QS system process) : 88 (QS system process) : 107 (QS system process) Pulse: 105 (QS system process) LaborFlag: Labor (QS system process) Datetime: 09/27/2016 19:21 Communication: Report Given to @ O. Ledgerwood, RN (Marquita Hooper RN) Communication Comments: report received from Lara Hooper RN at bedside ([facility], [facility]) Datetime: 09/27/2016 19:20 NBP Sys/Cherie/Mean (mmHg): 128 (QS system process) : 75 (QS system process) : 96 (QS system process) Pulse: 103 (QS system process) LaborFlag: Labor (QS system process) Datetime: 09/27/2016 19:19 NBP Sys/Cherie/Mean (mmHg): 133 (QS system process) : 63 (QS system process) : 90 (QS system process) Pulse: 88 (QS system process) I/O Interventions: Johnson Cath Inserted (Judy Mcintosh RN) Patient Care Comments: by Lara Hooper RN (Judy Mcintosh RN) LaborFlag: Labor (QS system process) Datetime: 09/27/2016 19:18 NBP Sys/Cherie/Mean (mmHg): 138 (QS system process) : 63 (QS system process) : 90 (QS system process) Pulse: 106 (QS system process) LaborFlag: Labor (QS system process) Datetime: 09/27/2016 19:17 NBP Sys/Cherie/Mean (mmHg): 123 (QS system process) : 65 (QS system process) : 89 (QS system process) Pulse: 96 (QS system process) LaborFlag: Labor (QS system process) Datetime: 09/27/2016 19:16 NBP Sys/Cherie/Mean (mmHg): 133 (QS system process) : 69 (QS system process) : 100 (QS system process) Pulse: 101 (QS system process) LaborFlag: Labor (QS system process) Datetime: 09/27/2016 19:15 NBP Sys/Cherie/Mean (mmHg): 145 (QS system process) : 73 (QS system process) : 105 (QS system process) Pulse: 89 (QS system process) Monitor Mode: External (Judy Mcintosh, JUAN MANUEL) Frequency (min): UTD (Judy Mcintosh, JUAN MANUEL) Resting Tone (Palpate): Relaxed (Judy Mcintosh, RN) Contraction Comments: pt just finished with Epidural (Judy Mcintosh, RN) Monitor Mode: External US (Judy Mcintosh, JUAN MANUEL) FHR Baseline Rate : 130 (Judy Mcintosh, RN) FHR Baseline Changes: No Baseline Change (Judy Mcintosh, RN) Variability: Moderate 6-25 bpm (Judy Mcintosh, RN) Accelerations: 10X10 (Judy Mcintosh, RN) Decelerations: None (Judy Mcintosh, JUAN MANUEL) Dilatation (cm): 4.0 (Matilda Estrada RN) Effacement (%): 90 (Matilda Estrada, RN) Station: 0 (Matilda Estrada, JUAN MANUEL) Exam by: Deandra Hooper RN (Matilda Estrada, JUAN MANUEL) Pitocin (milliunit): Pitocin Remains (milliunits) @ 12 (Judy Mcintosh, JUAN MANUEL) LaborFlag: Labor (QS system process) Datetime: 09/27/2016 19:14 NBP Sys/Cherie/Mean (mmHg): 143 (QS system process) : 65 (QS system process) : 93 (QS system process) Pulse: 107 (QS system process) LaborFlag: Labor (QS system process) Datetime: 09/27/2016 19:12 NBP Sys/Cherie/Mean (mmHg): 156 (QS system process) : 67 (QS system process) : 97 (QS system process) Pulse: 94 (QS system process) LaborFlag: Labor (QS system process) Datetime: 09/27/2016 19:11 NBP Sys/Cherie/Mean (mmHg): 145 (QS system process) : 70 (QS system process) : 98 (QS system process) Pulse: 103 (QS system process) LaborFlag: Labor (QS system process) Datetime: 09/27/2016 19:10 NBP Sys/Cherie/Mean (mmHg): 137 (QS system process) : 62 (QS system process) : 93 (QS system process) Pulse: 101 (QS system process) LaborFlag: Labor (QS system process) Datetime: 09/27/2016 19:09 NBP Sys/Cherie/Mean (mmHg): 145 (QS system process) : 66 (QS system process) : 95 (QS system process) Pulse: 92 (QS system process) LaborFlag: Labor (QS system process) Datetime: 09/27/2016 19:07 NBP Sys/Cherie/Mean (mmHg): 142 (QS system process) : 75 (QS system process) : 103 (QS system process) Pulse: 97 (QS system process) LaborFlag: Labor (QS system process) Datetime: 09/27/2016 19:06 NBP Sys/Cherie/Mean (mmHg): 142 (QS system process) : 74 (QS system process) : 103 (QS system process) Pulse: 93 (QS system process) Epidural Procedure Other: Pump Started (Marquita Hooper RN) LaborFlag: Labor (QS system process) Datetime: 09/27/2016 19:05 NBP Sys/Cherie/Mean (mmHg): 130 (QS system process) : 69 (QS system process) : 93 (QS system process) Pulse: 90 (QS system process) LaborFlag: Labor (QS system process) Datetime: 09/27/2016 19:04 NBP Sys/Cherie/Mean (mmHg): 145 (QS system process) : 65 (QS system process) : 102 (QS system process) Pulse: 90 (QS system process) Epidural Procedure: Loading Dose (Marquita Hooper RN) LaborFlag: Labor (QS system process) Datetime: 09/27/2016 19:02 NBP Sys/Cherie/Mean (mmHg): 153 (QS system process) : 96 (QS system process) : 116 (QS system process) Pulse: 91 (QS system process) LaborFlag: Labor (QS system process) Datetime: 09/27/2016 19:01 NBP Sys/Cherie/Mean (mmHg): 151 (QS system process) : 93 (QS system process) : 116 (QS system process) Pulse: 92 (QS system process) Pulse: 85 (QS system process) SpO2 (%): 98 (QS system process) LaborFlag: Labor (QS system process) Datetime: 09/27/2016 19:00 NBP Sys/Cherie/Mean (mmHg): 140 (QS system process) : 75 (QS system process) : 98 (QS system process) Pulse: 89 (QS system process) Monitor Mode: External; Palpation (Matilda Estrada RN) Monitor Interventions for UA: [place] Adjusted (Yvette Gibbosn RN) Frequency (min): 2-4 (Matilda Estrada RN) Quality: Mild (Yvette Gibbons RN) Quality: Mild/Moderate (Matilda Estrada RN) Duration (sec): 40-70 (Matilda Estrada RN) Resting Tone (Palpate): Relaxed (Yvette Gibbons RN) Resting Tone (Palpate): Relaxed (Matilda Estrada RN) Contraction Comments: RN @ bedside adjusting toco (Yvette Gibbons RN) Monitor Mode: External US (Matilda Estrada RN) FHR Baseline Rate : 130 (Matilda Estrada RN) FHR Baseline Changes: No Baseline Change (Yvette Gibbons RN) Variability: Moderate 6-25 bpm (Matilda Estrada RN) Accelerations: 15X15 (Matilda Estrada RN) Decelerations: None (Matilda Estrada RN) Pitocin (milliunit): Pitocin Remains (milliunits) @ 12 (Marquita Hooper RN) Pitocin (milliunit): Pitocin Remains (milliunits) @ (Annotations: 12) (Marquita Hooper RN) Epidural Procedure: Test Dose (Matilda Estrada RN) LaborFlag: Labor (QS system process)
--- NOTE | 2016-09-28 09:13 | PDOC PROGRESS REPORT ---
Subjective-OB Subjective: Post Delivery Day: 21 year old. Denies any needs at this time Physical Exam (OB) Vital Signs: Temp Pulse Resp BP Pulse Ox 97.7 F 91 20 122/71 99 09/28/16 08:35 09/28/16 08:35 09/28/16 08:35 09/28/16 08:35 09/28/16 08:35 Intake & Output 09/27/16 09/28/16 09/29/16 06:59 06:59 06:59 Weight 117.2 kg - Lochia Lochia Amount: Small 10-25 ml Lochia Color: Rubra/Red - Abdomen Description: Soft, Round Hernia Present: No Bowel Sounds: Normoactive Flatus Presence: Present Stool: No Fundal Description: Firm, Midline Fundal Height: u/u - u/2 Objective-Diagnostic Laboratory: 09/27/16 12:25 09/27/16 09/27/16 09/27/16 11:40 12:25 12:25 WBC 11.2 H RBC 4.40 Hgb 11.5 L Hct 34.8 L MCV 79 L MCH 26.2 L MCHC 33.0 RDW 14.3 H Plt Count 167 Seg Neutrophils % 82.1 H Lymphocytes % 11.1 L Monocytes % 6.6 Eosinophils % 0.1 Basophils % 0.1 Absolute Neutrophils 9.2 H Absolute Lymphocytes 1.2 Absolute Monocytes 0.7 Absolute Eosinophils 0.0 Absolute Basophils 0.0 Urine Color YELLOW Urine Appearance CLEAR Urine pH 6.0 Ur Specific [place] 1.014 Urine Protein NEGATIVE Urine Glucose (UA) NEGATIVE Urine Ketones NEGATIVE Urine Blood SMALL H Urine Nitrite NEGATIVE Ur Leukocyte Esterase NEGATIVE Blood Type A POSITIVE Antibody Screen NEGATIVE
[2016-09-28] MEDS: DOCUSATE SODIUM 100 MG CAPSULE PO SCH ×2 (10:39→17:26)
[2016-09-28] MEDS: SENNOSIDES/DOCUSATE 8.6-50 MG 1 EACH TABLET PO SCH (10:39)
[2016-09-28] MEDS: PRENATAL VITAMIN W-O CA NO5/FE FUMARATE/FA CAPSULE PO SCH (10:39)
[2016-09-28] MEDS: FERROUS SULFATE 325 MG TABLET PO SCH ×2 (10:39→17:26)
--- NOTE | 2016-09-28 18:01 | L&D General Admission ---
General Admit Datetime Report Generated by CPN: 09/28/2016 18:00 INFORMATION Patient Age: 20 (08/20/2016 14:33:QS system process) EDC: 09/26/2016 00:00 (08/20/2016 14:44:HAYLIE Talbot) : 1 (08/20/2016 14:44:HAYLIE Talbot) Para: 0 (08/20/2016 14:44:HAYLIE Talbot) Term: 0 (08/20/2016 14:44:HAYLIE Talbot) : 0 (08/20/2016 14:44:HAYLIE Talbot) Spontaneous Abortions: 0 (08/20/2016 14:44:HAYLIE Talbot) Induced Abortions: 0 (08/20/2016 14:44:HAYLIE Talbot) Livin (08/20/2016 14:44:HAYLIE Talbot) Cesareans: 0 (08/20/2016 14:44:HAYLIE Talbot) VBACs: 0 (08/20/2016 14:44:HAYLIE Talbot) Ectopic: 0 (08/20/2016 14:44:HAYLIE Talbot) Multiple Births: 0 (08/20/2016 14:44:HAYLIE Talbot) Baby, Number in Womb: 1 (08/20/2016 14:44:HAYLIE Talbot) CARE Primary Customer Service Driver: [facility] (08/20/2016 14:44:Vicky Broderick RN) Month of 1st Visit: March 2016 (08/20/2016 14:44:Marquita Hooper RN) Adequate Care: Yes (08/20/2016 14:44:HAYLIE Talbot) Height (in): 67 (09/28/2016 03:42:QS system process) ALLERGIES Medication Allergy: No (08/20/2016 14:44:HAYLIE Talbot) Medication Allergies: No Known Allergies (09/25/2016) (09/25/2016 08:25:QS system process) Latex Allergy: No Latex Allergies (08/20/2016 14:44:HAYLIE Talbot) Food Allergies: jalepenos (08/20/2016 14:44:Marquita Hooper RN) COMMUNICATION Primary Language: Jamaican (08/20/2016 14:44:HAYLIE Talbot) Medical Tx Preferred Language: Jamaican (08/20/2016 14:44:Marquita Hooper RN) DEMOGRAPHICS Address: [address] [place] [id number] (08/20/2016 14:33:QS system process) Zipcode: [address] (08/20/2016 14:33:QS system process) Home (08/20/2016 14:33:QS system process) Work (08/20/2016 14:33:QS system process) SSN: [id number] (08/20/2016 14:33:QS system process) Next of Kin Name: CARLENE REYES (08/20/2016 14:33:QS system process) Next of Kin (08/20/2016 14:33:QS system process) Next of Kin Relationship: MO (08/20/2016 14:33:QS system process) Date of : 1995 (08/20/2016 14:33:QS system process) Marital Status: Single (08/20/2016 14:33:QS system process) Sex: Female (08/20/2016 14:33:QS system process) Race: (08/20/2016 14:33:QS system process) Ethnicity: Non- or (08/20/2016 14:33:QS system process) Taoist: Worship (08/20/2016 14:33:QS system process) DRUG AND ALCOHOL USE Alcohol: No (08/20/2016 14:44:HAYLIE Talbot) Cigarettes: Former Smoker. [id number] (08/20/2016 14:44:HAYLIE Talbot) Marijuana: No (08/20/2016 14:44:HAYLIE Talbot) Cocaine: No (08/20/2016 14:44:HAYLIE Talbot) Other Illicit Drugs: No (08/20/2016 14:44:HAYLIE Talbot) VACCINE HISTORY Influenza Vaccine: Yes (08/20/2016 14:44:Marquita Hooper RN) Feeding Preference: Breast (08/20/2016 14:44:Marquita Hooper RN) Benefit of Breast Feed Discussed: Yes (08/20/2016 14:44:Judy Mcintosh RN) Circumcision: Yes (08/20/2016 14:44:Marquita Hooper RN) Classes Attended: Yes (08/20/2016 14:44:Marquita Hooper RN) Pain Management Plans: Medications (08/20/2016 14:44:Marquita Hooper RN) Plans for Labor and Delivery: None (08/20/2016 14:44:Marquita Hooper RN) Support Person: Taj Martin (08/20/2016 14:44:Marquita Hooper RN) Support Person Relationship: Significant Other (08/20/2016 14:44:Marquita Hooper RN) Cultural/Spritual Practice: No (08/20/2016 14:44:Marquita Hooper RN) Spir/Cult Dietary Needs: No (08/20/2016 14:44:Marquita Hooper RN) LIVING SITUATION/DISCHARGE PLAN Living Arrangements: House (08/20/2016 14:44:Marquita Hooper RN) Adequate Access to:: Electric; Heat; Refrigeration; Plumbing/Running water; Phone; Transportation (08/20/2016 14:44:Marquita Hooper RN) WIC Program: Yes (08/20/2016 14:44:Marquita Hooper RN) Discharge Art Dealer Person: Taj Luceroomnia (08/20/2016 14:44:Marquita Hooper RN) Person to Help after Discharge: Taj Crisomnia (08/20/2016 14:44:Marquita Hooper RN) Currently Using Commun Resources: Yes (08/20/2016 14:44:Marquita Hooper RN) Specify Current Resource Used: Medicaid (08/20/2016 14:44:Marquita Hooper RN) Car Seat for Discharge: Yes (08/20/2016 14:44:Marquita Hooper RN) LABS Blood Type: A Positive (08/20/2016 14:44:Marquita Hooper RN) Hemoglobin: 11.5 L (09/27/2016 12:25:QS system process) Hematocrit: 34.8 L (09/27/2016 12:25:QS system process) MCV: 79 L (09/27/2016 12:25:QS system process) Group Beta Strep: negative (08/20/2016 14:44:Marquita Hooper RN) Chlamydia: Negative (08/20/2016 14:44:Marquita Hooper RN) RPR/VDRL: Nonreactive (08/20/2016 14:44:Marquita Hooper RN) HIV Exposure Test: Negative (08/20/2016 14:44:Marquita Hooper RN) Hepatitis B: Negative (08/20/2016 14:44:Marquita Hooper RN) Rubella: Immune (08/20/2016 14:44:Marquita Hooper RN) Varicella: Susceptible (08/20/2016 14:44:Marquita Hooper RN) OB/PREVIOUS HISTORY History of Previous : No (08/20/2016 14:44:Marquita Hooper RN) History of Gestational Diabetes: No (08/20/2016 14:44:Marquita Hooper RN) History of PIH: No (08/20/2016 14:44:Marquita Hooper RN) History of Incompetent Cervix: No (08/20/2016 14:44:Marquita Hooper RN) History of Placenta Previa/Abrup: No (08/20/2016 14:44:Marquita Hooper RN) History of Macrosomia: No (08/20/2016 14:44:Marquita Hooper RN) History of IUGR: No (08/20/2016 14:44:Marquita Hooper RN) History of Hemorrhage: No (08/20/2016 14:44:Marquita Hooper RN) History of Loss/Stillborn: No (08/20/2016 14:44:Marquita Hooper RN) History of : No (08/20/2016 14:44:Marquita Hooper RN) History of D (Rh) Sensitization: No (08/20/2016 14:44:Marquita Hooper RN) History Recurrent Loss/Stillborn: No (08/20/2016 14:44:Marquita Hooper RN) History Depression/PP Depression: No (08/20/2016 14:44:Marquita Hooper RN) History of Uterine Anomaly/RUTHY: No (08/20/2016 14:44:Marquita Hooper RN) History of Infertility: No (08/20/2016 14:44:Marquita Hooper RN) History of ART Treatment: No (08/20/2016 14:44:Marquita Hooper RN) History of RUTHY: No (08/20/2016 14:44:Marquita Hooper RN) Comments Obstetrical History: G1 - current Infant has mass in abdomen monitored by [facility] (08/20/2016 14:44:Marquita Hooper RN) MEDICAL HISTORY Med Hx Diabetes: No (08/20/2016 14:44:Marquita Hooper RN) Med Hx Hypertension: No (08/20/2016 14:44:Marquita Hooper RN) Med Hx Heart Disease: No (08/20/2016 14:44:Marquita Hooper RN) Med Hx Autoimmune Disorder: No (08/20/2016 14:44:Marquita Hooper RN) Med Hx Kidney Disease/UTI: No (08/20/2016 14:44:Marquita Hooper RN) Med Hx Neurologic/Epilepsy: No (08/20/2016 14:44:Marquita Hooper RN) Med Hx Psychiatric Disorders: No (08/20/2016 14:44:Marquita Hooper RN) Med Hx Hepatitis/Liver Disease: No (08/20/2016 14:44:Marquita Hooper RN) Med Hx Varicosities/Phlebitis: No (08/20/2016 14:44:Marquita Hooper RN) Med Hx Thyroid Dysfunction: No (08/20/2016 14:44:Marquita Hooper RN) Med Hx Trauma/Violence: No (08/20/2016 14:44:Marquita Hooper RN) Med Hx Blood Transfusion: No (08/20/2016 14:44:Marquita Hooper RN) Med Hx Pulmonary (Asthma,TB): No (08/20/2016 14:44:Marquita Hooper RN) Med Hx Breast: No (08/20/2016 14:44:Marquita Hooper RN) Med Hx OUTREACH PROFESSIONAL Surgery: No (08/20/2016 14:44:Marquita Hooper RN) Med Hx Hospitalization/Surgery: Yes (08/20/2016 14:44:Marquita Hooper RN) Med Hx Anesthetic Complications: No (08/20/2016 14:44:Marquita Hooper RN) Med Hx Abnormal Pap Smear: No (08/20/2016 14:44:Marquita Hooper RN) Other Medical Diseases: No (08/20/2016 14:44:Marquita Hooper RN) Med Hx Significant Family Hx: No (08/20/2016 14:44:Marquita Hooper RN) Details of Med/Surg Hx: Hospitalized for possible appendicitis (08/20/2016 14:44:Marquita Hooper RN) INFECTIOUS HISTORY Inf Hx Gonorrhea: No (08/20/2016 14:44:Marquita Hooper RN) Inf Hx Chlamydia: No (08/20/2016 14:44:Marquita Hooper RN) Inf Hx Syphilis: No (08/20/2016 14:44:Marquita Hooper RN) Inf Hx HIV/AIDS: No (08/20/2016 14:44:Marquita Hooper RN) Inf Hx Human Papilloma Virus: No (08/20/2016 14:44:Marquita Hooper RN) Inf Hx Pt/Partner Genital Herpes: No (08/20/2016 14:44:Marquita Hooper RN) Inf Hx Tuberculosis/Exposure: No (08/20/2016 14:44:Marquita Hooper RN) Inf Hx Hepatitis B,C: No (08/20/2016 14:44:Marquita Hooper RN) Inf Hx Rash or Viral Illness: No (08/20/2016 14:44:Marquita Hooper RN) GENETIC HISTORY Gen Hx Age >=35 at ASHLEY: No (08/20/2016 14:44:Marquita Hooper RN) Gen Hx Thalassemia: No (08/20/2016 14:44:Marquita Hooper RN) Gen Hx Congenital Heart Defect: No (08/20/2016 14:44:Marquita Hooper RN) Gen Hx Neural Tube Defect: No (08/20/2016 14:44:Marquita Hooper RN) Gen Hx Down's Syndrome: No (08/20/2016 14:44:Marquita Hooper RN) Gen Hx Moo-Sachs: No (08/20/2016 14:44:Marquita Hooper RN) Gen Hx Joaquin: No (08/20/2016 14:44:Marquita Hooper RN) Gen Hx Familial Dysautonomia: No (08/20/2016 14:44:Marquita Hooper RN) Gen Hx Sickle Cell Disease/Trait: No (08/20/2016 14:44:Marquita Hooper RN) Gen Hx Hemophilia/Blood Disorder: No (08/20/2016 14:44:Marquita Hooper RN) Gen Hx Muscular Dystrophy: No (08/20/2016 14:44:Marquita Hooper RN) Gen Hx Cystic Fibrosis: No (08/20/2016 14:44:Marquita Hooper RN) Gen Hx [place] Chorea: No (08/20/2016 14:44:Marquita Hooper RN) Gen Hx Mental Retardation/Autism: No (08/20/2016 14:44:Marquita Hooper RN) Gen Hx Tested for Fragile X: No (08/20/2016 14:44:Marquita Hooper RN) Gen Hx Other Inher/Chromosomal: No (08/20/2016 14:44:Marquita Hooper RN) Gen Hx Maternal Metabolic DO: No (08/20/2016 14:44:Marquita Hooper RN) Gen Hx Pt Father or FOB Defect: No (08/20/2016 14:44:Marquita Hooper RN) Gen Hx Other Genetic History: No (08/20/2016 14:44:Marquita Hooper RN) Gen Hx Drugs/Meds since LMP: No (08/20/2016 14:44:Marquita Hooper RN)
--- NOTE | 2016-09-28 18:01 | L&D Current Admission ---
Current Admit Datetime Report Generated by CPN: 09/28/2016 18:00 ADMISSION INFORMATION Current Admit Date/Time: 09/27/2016 12:40 (09/27/2016 12:40:Marquita Hooper RN) Reason for Admission: Rupture of Membranes (09/27/2016 12:40:Marquita Hooper RN) Chief Complaint: Suspected Rupture of Membranes (09/27/2016 12:40:Marquita Hooper RN) Medications During : Vitamin (09/27/2016 12:40:Marquita Hooper RN) EGA per Dates: 40.1 (09/27/2016 12:40:QS system process) Method of Arrival: Wheelchair (09/25/2016 08:37:Marquita Hooper RN) Reason for Induction: Premature Rupture of Membranes (09/27/2016 12:40:Marquita Hooper RN) Records Available: Yes (09/27/2016 12:40:Marquita Hooper RN) General Admission Information: Reviewed; Updated (09/27/2016 12:40:Marquita Hooper RN) General Admission Reviewed By: Deandra Hooper RN (09/27/2016 12:40:Marquita Hooper RN) BELONGINGS/ADVANCED DIRECTIVES Valuables/Personal Effects: Purse/Wallet; Cell Phone (09/27/2016 12:40:Marquita Hooper RN) Other Belongings: laptop, clothing (09/27/2016 12:40:Marquita Hooper RN) Disposition of Belongings: Kept with Patient (09/27/2016 12:40:Marquita Hooper RN) Advance Direct for Healthcare: No, and Wants No Information (09/27/2016 12:40:Marquita Hooper RN) Durable Power of Stenotype Operator: No (09/27/2016 12:40:Marquita Hooper RN) Living Will: No (09/27/2016 12:40:Marquita Hooper RN) Organ Donor: Yes (09/27/2016 12:40:Marquita Hooper RN) Pt Rights Information Given: Yes (09/27/2016 12:40:Marquita Hooper RN) Pt Understands Pt Rights: Yes (09/27/2016 12:40:Marquita Hooper RN) LEARNING ASSESSMENT Knowledge Level: Understands L_D Process; Understands Care Activities; Had Pre-Hospital Education; Understands Diagnosis (09/27/2016 12:40:Marquita Hooper RN) Barriers to Learning: None (09/27/2016 12:40:Marquita Hooper RN) Learning Readiness: Motivated (09/27/2016 12:40:Marquita Hooper RN) Learns Best By: 1 to 1 Instruction; Demonstration (09/27/2016 12:40:Marquita Hooper RN) Learning Needs: Labor and Delivery Process; Pain Management; Symptoms to Report; Treatment Plan; Medication; Diagnosis; Nutrition; Equipment; Infant Care (09/27/2016 12:40:Marquita Hooper RN) DOMESTIC VIOLANCE SCREENING Dom Viol Threatened/Hurt: No (09/27/2016 12:40:Marquita Hooper RN) Hx of Abuse/Neglect past 2yrs: No (09/27/2016 12:40:Marquita Hooper RN) Feel Unsafe Going Home: No (09/27/2016 12:40:Marquita Hooper RN) Addt'l Observ Indicating Abuse: No (09/27/2016 12:40:Marquita Hooper RN) Reason Unable to Complete Screen: N/A, Screen Completed (09/27/2016 12:40:Marquita Hooper RN) Considered Personal Harm/Suicide: No (09/27/2016 12:40:Marquita Hooper RN) NUTRITIONAL/FUNCTIONAL SCREENING Problem with Appetite >5 Days: No (09/27/2016 12:40:Marquita Hooper RN) Chew/Swallow Difficulties: No (09/27/2016 12:40:Marquita Hooper RN) Inappropriate Wt Gain/Loss: No (09/27/2016 12:40:Marquita Hooper RN) Presence Skin Breakdown/Ulcer: No (09/27/2016 12:40:Marquita Hooper RN) Special Diet: No (09/27/2016 12:40:Marquita Hooper RN) Pt Requests Wet Mix Operator Visit: No (09/27/2016 12:40:Marquita Hooper RN) Hx of Any of the Following?: N/A (09/27/2016 12:40:Marquita Hooper RN) New Diagnosis of: N/A (09/27/2016 12:40:Marquita Hooper RN) Requires Assist w/Ambulation: No (09/27/2016 12:40:Marquita Hooper RN) Uses Assist Device to Ambulate: No (09/27/2016 12:40:Marquita Hooper RN) Pt Requires Help w/ADL's: No (09/27/2016 12:40:Marquita Hooper RN)
--- NOTE | 2016-09-28 18:16 | L&D Care Plan ---
LD CARE PLANS Datetime Report Generated by CPN: 09/28/2016 18:15 Datetime: 09/27/2016 13:57 State: Risk For (Marquita Hooper RN) Related To: Labor and Delivery Process; Treatment and Procedures (Marquita Hooper RN) Goal(s): Patients Pain will be Assessed and Managed; Patient will Verbalize Adequate Relief of Pain or the Ability to [place] with Current Pain (Marquita Hooper RN) Interventions: Assess Pain Severity on Scale of 0 (None) to 5 (Severe); Assess Type, Location and Intensity of Pain Each Time Client Reports Discomfort and Notify Provider if Unusal Pain Develops; Encourage Proper Breathing and Relaxation Techniques; Offer Alternatives Such as Repositioning, Calm Environment, Massages, Diversional Activities, Ice Pack, Splinting, and Ambulation; Administer Analgesics as Ordered; Assist with Epidural Placement as Appropriate; Evaluate Therapeutic Effectiveness of Medication and Treatments (Marquita Hooper RN) Outcome: Patient will Report Absence or Relief of Pain Consistent with Established Pain Goal (Marquita Hooper RN) Status: Ongoing (Marquita Hooper RN) Outcome: Patient will have a Decrease in Signs and Symptoms of Discomfort (Marquita Hooper RN) Status: Ongoing (Marquita Hooper RN) Outcome: Pain will be Controlled During Procedures (Marquita Hooper RN) Status: Ongoing (Marquita Hooper RN) State: Risk For (Marquita Hooper RN) Related To: Labor and Delivery Process; Medical Interventions (Marquita Hooper RN) Goal(s): Patient will have Decreased Anxiety and be able to Function at Acceptable Levels (Marquita Hooper RN) Interventions: Assess Verbal and Nonverbal Behavioral Indicators of Anxiety; Assist Patient to Identify and Verbalize Symptoms of Anxiety; Identify and Demonstrate Techniques to Control Anxiety; Assist Patient with Coping Mechanisms to Manage Anxiety; Explain to Patient, Using a Calm Reassuring Approach and Nonmedical Terms, All Activities, Procedures, and Concerns; Instruct Patient and Family about Post Discharge Care, Limitations, Symptoms to Report and Resources Available (Marquita Hooper RN) Outcome: Patient will Identify, Verbalize and Demonstrate Techniques to Control Anxiety (Marquita Hooper RN) Status: Ongoing (Marquita Hooper RN) Outcome: Patient's Posture, Facial Expressions, Gestures and Activity Level will Reflect Decreased Anxiety (Marquita Hooper RN) Status: Ongoing (Marquita Hooper RN) Outcome: Patient will Verbalize a Sense of Control and/or Acceptance of the Situation (Marquita Hooper RN) Status: Ongoing (Marquita Hooper RN) Outcome: Patient will Identify and Utilize Support Person (Marquita Hooper RN) Status: Ongoing (Marquita Hooper RN) State: Risk For (Marquita Hooper RN) Related To: Labor and Delivery Process; Treatment and Procedures (Marquita Hooper RN) Goal(s): Patient will Accurately Verbalize Understanding of Plan of Care and Treatment; Patient and Family will Accurately Verbalize Understanding of the Disease Process (Marquita Hooper RN) Interventions: Assess Motivation and Willingness of Patient/Family to Learn; Assess Preferred Learning Mode: One to One Instruction, Reading, Videos, Group Discussion or Demonstration; Assess Barriers to Learning: Pain, Emotional State, Language Barrier, Cognitive Impairment, Visual or Hearing Deficits; Assess Patient and Family Knowledge of Disease Process, Medications and Treatment; Discuss Therapy and/or Treatment Options, Describe Rationale Behind Management, Therapy and Treatment Recommendations; Instruct Patient and Family on Signs and Symptoms to Report; Instruct Patient and Family on Medication Effects and Side Effects; Provide Appropriate and Timely Education Using Multiple Techniques; Provide Patient and Family with Support Group Information and Resources; Give Clear and Thorough Explanations and Demonstrations (Marquita Hooper RN) Outcome: Patient and Family will Verbalize Understanding of Condition, Treatment and Signs and Symptoms to Report (Marquita Hooper RN) Status: Ongoing (Marquita Hooper RN) Outcome: Patient will Identify Perceived Learning Needs and Express Motivation to Learn (Marquita Hooper RN) Status: Ongoing (Marquita Hooper RN) Outcome: Patient will Verbalize Understanding of Desired Content, and/or Performs Desired Skill Prior to Discharge (Marquita Hooper RN) Status: Ongoing (Marquita Hoopre RN) State: Risk For (Marquita Hooper RN) Related To: Surgical Procedures; Invasive Procedures (Marquita Hooper RN) Goal(s): The Patient will be Free of Infection, Vital Signs Stable and Lab Work within Normal Parameters (Marquita Hooper RN) Interventions: Instruct and Reinforce Proper Handwashing, Hygiene, and Care Techniques to Patient and Family; Monitor Vital Signs; Monitor Patient for the Following Signs of Infection: Fever, Abdominal Tenderness, Unusual Discharge; Monitor Aminiotic Fluid, Urine and Lochia for Color and Odor; Observe Wounds, Incisions and Invasive Line Sites for Redness, Drainage and Edema; Assess IV Sites per Hospital Policy; Monitor Lab and Test Results and Notify Provider of Abnormal Findings; Assess Nutritional Status and Promote Good Nutrition (Marquita Hooper RN) Outcome: Patient will Remain Free of Infection (Marquita Hooper RN) Status: Ongoing (Marquita Hooper RN) Outcome: Infection will be Recognized Early to Allow for Prompt Treatment (Marquita Hooper RN) Status: Ongoing (Marquita Hooper RN) Outcome: Patient will have Vital Signs Within Expected Range (Marquita Hooper RN) Status: Ongoing (Marquita Hooper RN) State: Risk For (Marquita Hooper RN) Related To: Labor and Delivery Process (Marquita Hooper RN) Goal(s): Patient will Remain Free from Injury (Marquita Hooper RN) Interventions: Monitoring as per Hospital Protocol; Assess Neurological Status; Perform Risk Assessment of Patients with Induction and ; Perform Fall Risk Assessment and Prevention per Hospital Protocol; Perform DVT Risk Assessment and Prophylaxis per Hospital Protocol; Ensure that Oxygen, Suction, and Resuscitation Medications and Equipment are Readily Available; Confirm Patient ID Prior to Procedure(s) and Medication Administration per Hospital Policy (Marquita Hooper RN) Outcome: Successful Fall Risk Prevention (Marquita Hooper RN) Status: Ongoing (Marquita Hooper RN) Outcome: Patient will Deliver without Adverse [place]ela (Marquita Hooper RN) Status: Ongoing (Marquita Hooper RN) Outcome: Patient's Neurological Status will Remain Stable (Marquita Hooper RN) Status: Ongoing (Marquita Hooper RN) Datetime: 09/27/2016 13:55 State: Risk For (Marquita Hooper RN) Related To: Labor and Delivery Process; Treatment and Procedures (Marquita Hooper RN) Goal(s): Patients Pain will be Assessed and Managed; Patient will Verbalize Adequate Relief of Pain or the Ability to [place] with Current Pain (Marquita Hoopre RN) Interventions: Assess Pain Severity on Scale of 0 (None) to 5 (Severe); Assess Type, Location and Intensity of Pain Each Time Client Reports Discomfort and Notify Provider if Unusal Pain Develops; Encourage Proper Breathing and Relaxation Techniques; Offer Alternatives Such as Repositioning, Calm Environment, Massages, Diversional Activities, Ice Pack, Splinting, and Ambulation; Administer Analgesics as Ordered; Assist with Epidural Placement as Appropriate; Evaluate Therapeutic Effectiveness of Medication and Treatments (Marquita Hooper RN) Outcome: Patient will Report Absence or Relief of Pain Consistent with Established Pain Goal (Marquita Hooper RN) Status: Ongoing (Marquita Hooper RN) Outcome: Patient will have a Decrease in Signs and Symptoms of Discomfort (Marquita Hooper RN) Status: Ongoing (Marquita Hooper RN) Outcome: Pain will be Controlled During Procedures (Marquita Hooper RN) Status: Ongoing (Marquita Hooper RN) State: Risk For (Marquita Hooper RN) Related To: Labor and Delivery Process; Medical Interventions (Marquita Hooper RN) Goal(s): Patient will have Decreased Anxiety and be able to Function at Acceptable Levels (Marquita Hooper RN) Interventions: Assess Verbal and Nonverbal Behavioral Indicators of Anxiety; Assist Patient to Identify and Verbalize Symptoms of Anxiety; Identify and Demonstrate Techniques to Control Anxiety; Assist Patient with Coping Mechanisms to Manage Anxiety; Explain to Patient, Using a Calm Reassuring Approach and Nonmedical Terms, All Activities, Procedures, and Concerns; Instruct Patient and Family about Post Discharge Care, Limitations, Symptoms to Report and Resources Available (Marquita Hooper RN) Outcome: Patient will Identify, Verbalize and Demonstrate Techniques to Control Anxiety (Marquita Hooper RN) Status: Ongoing (Marquita Hooper RN) Outcome: Patient's Posture, Facial Expressions, Gestures and Activity Level will Reflect Decreased Anxiety (Marquita Hooper RN) Status: Ongoing (Marquita Hooper RN) Outcome: Patient will Verbalize a Sense of Control and/or Acceptance of the Situation (Marquita Hooper RN) Status: Ongoing (Marquita Hooper RN) Outcome: Patient will Identify and Utilize Support Person (Marquiat Hooper RN) Status: Ongoing (Marquita Hooper RN) State: Risk For (Marquita Hooper RN) Related To: Labor and Delivery Process; Treatment and Procedures (Marquita Hooper RN) Goal(s): Patient will Accurately Verbalize Understanding of Plan of Care and Treatment; Patient and Family will Accurately Verbalize Understanding of the Disease Process (Marquita Hooper RN) Interventions: Assess Motivation and Willingness of Patient/Family to Learn; Assess Preferred Learning Mode: One to One Instruction, Reading, Videos, Group Discussion or Demonstration; Assess Barriers to Learning: Pain, Emotional State, Language Barrier, Cognitive Impairment, Visual or Hearing Deficits; Assess Patient and Family Knowledge of Disease Process, Medications and Treatment; Discuss Therapy and/or Treatment Options, Describe Rationale Behind Management, Therapy and Treatment Recommendations; Instruct Patient and Family on Signs and Symptoms to Report; Instruct Patient and Family on Medication Effects and Side Effects; Provide Appropriate and Timely Education Using Multiple Techniques; Provide Patient and Family with Support Group Information and Resources; Give Clear and Thorough Explanations and Demonstrations (Marquita Hooper RN) Outcome: Patient and Family will Verbalize Understanding of Condition, Treatment and Signs and Symptoms to Report (Marquita Hooper RN) Status: Ongoing (Marquita Hooper RN) Outcome: Patient will Identify Perceived Learning Needs and Express Motivation to Learn (Marquita Hooper RN) Status: Ongoing (Marquita Hooper RN) Outcome: Patient will Verbalize Understanding of Desired Content, and/or Performs Desired Skill Prior to Discharge (Marquita Hooper RN) Status: Ongoing (Marquita Hooper RN) State: Risk For (Marquita Hooper RN) Related To: Surgical Procedures; Invasive Procedures (Marquita Hooper RN) Goal(s): The Patient will be Free of Infection, Vital Signs Stable and Lab Work within Normal Parameters (Marquita Hooper RN) Interventions: Instruct and Reinforce Proper Handwashing, Hygiene, and Care Techniques to Patient and Family; Monitor Vital Signs; Monitor Patient for the Following Signs of Infection: Fever, Abdominal Tenderness, Unusual Discharge; Monitor Aminiotic Fluid, Urine and Lochia for Color and Odor; Observe Wounds, Incisions and Invasive Line Sites for Redness, Drainage and Edema; Assess IV Sites per Hospital Policy; Monitor Lab and Test Results and Notify Provider of Abnormal Findings; Assess Nutritional Status and Promote Good Nutrition (Marquita Hooper RN) Outcome: Patient will Remain Free of Infection (Marquita Hooper RN) Status: Ongoing (Marquita Hooper RN) Outcome: Infection will be Recognized Early to Allow for Prompt Treatment (Marquita Hooper RN) Status: Ongoing (Marquita Hooper RN) Outcome: Patient will have Vital Signs Within Expected Range (Marquita Hooper RN) Status: Ongoing (Marquita Hooper RN) State: Risk For (Marquita Hooper RN) Related To: Labor and Delivery Process (Marquita Hooper RN) Goal(s): Patient will Remain Free from Injury (Marquita Hooper RN) Interventions: Monitoring as per Hospital Protocol; Assess Neurological Status; Perform Risk Assessment of Patients with Induction and ; Perform Fall Risk Assessment and Prevention per Hospital Protocol; Perform DVT Risk Assessment and Prophylaxis per Hospital Protocol; Ensure that Oxygen, Suction, and Resuscitation Medications and Equipment are Readily Available; Confirm Patient ID Prior to Procedure(s) and Medication Administration per Hospital Policy (Marquita Hooper RN) Outcome: Successful Fall Risk Prevention (Marquita Hooper RN) Status: Ongoing (Marquita Hooper RN) Outcome: Patient will Deliver without Adverse [place] (Marquita Hooper RN) Status: Ongoing (Marquita Hooper RN) Outcome: Patient's Neurological Status will Remain Stable (Marquita Hooper RN) Status: Ongoing (Marquita Hooper RN)
[2016-09-29] MEDS: IBUPROFEN 800 MG TABLET PO SCH ×3 (05:37→22:01)
--- NOTE | 2016-09-29 06:01 | L&D General Admission ---
General Admit Datetime Report Generated by CPN: 09/29/2016 06:00 INFORMATION Patient Age: 20 (08/20/2016 14:33:QS system process) EDC: 09/26/2016 00:00 (08/20/2016 14:44:HAYLIE Talbot) : 1 (08/20/2016 14:44:HAYLIE Talbot) Para: 0 (08/20/2016 14:44:HAYLIE Talbot) Term: 0 (08/20/2016 14:44:HAYLIE Talbot) : 0 (08/20/2016 14:44:HAYLIE Talbot) Spontaneous Abortions: 0 (08/20/2016 14:44:HAYLIE Talbot) Induced Abortions: 0 (08/20/2016 14:44:HAYLIE Talbot) Livin (08/20/2016 14:44:HAYLIE Talbot) Cesareans: 0 (08/20/2016 14:44:HAYLIE Talbot) VBACs: 0 (08/20/2016 14:44:HAYLIE Talbot) Ectopic: 0 (08/20/2016 14:44:HAYLIE Talbot) Multiple Births: 0 (08/20/2016 14:44:HAYLIE Talbot) Baby, Number in Womb: 1 (08/20/2016 14:44:HAYLIE Talbot) CARE Primary Credit Operations Specialist: [facility] (08/20/2016 14:44:Vicky Broderick RN) Month of 1st Visit: March 2016 (08/20/2016 14:44:Marquita Hooper RN) Adequate Care: Yes (08/20/2016 14:44:HAYLIE Talbot) Height (in): 67 (09/28/2016 03:42:QS system process) ALLERGIES Medication Allergy: No (08/20/2016 14:44:HAYLIE Talbot) Medication Allergies: No Known Allergies (09/25/2016) (09/25/2016 08:25:QS system process) Latex Allergy: No Latex Allergies (08/20/2016 14:44:HAYLIE Talbot) Food Allergies: jalepenos (08/20/2016 14:44:Marquita Hooper RN) COMMUNICATION Primary Language: Italian (08/20/2016 14:44:HAYLIE Talbot) Medical Tx Preferred Language: Italian (08/20/2016 14:44:Marquita Hooper RN) DEMOGRAPHICS Address: [address] [place] [id number] (08/20/2016 14:33:QS system process) Zipcode: [address] (08/20/2016 14:33:QS system process) Home (08/20/2016 14:33:QS system process) Work (08/20/2016 14:33:QS system process) SSN: [id number] (08/20/2016 14:33:QS system process) Next of Kin Name: CARLENE REYES (08/20/2016 14:33:QS system process) Next of Kin (08/20/2016 14:33:QS system process) Next of Kin Relationship: MO (08/20/2016 14:33:QS system process) Date of : 1995 (08/20/2016 14:33:QS system process) Marital Status: Single (08/20/2016 14:33:QS system process) Sex: Female (08/20/2016 14:33:QS system process) Race: (08/20/2016 14:33:QS system process) Ethnicity: Non- or (08/20/2016 14:33:QS system process) Baptist: Church (08/20/2016 14:33:QS system process) DRUG AND ALCOHOL USE Alcohol: No (08/20/2016 14:44:HAYLIE Talbot) Cigarettes: Former Smoker. [id number] (08/20/2016 14:44:HAYLIE Talbot) Marijuana: No (08/20/2016 14:44:HAYLIE Talbot) Cocaine: No (08/20/2016 14:44:HAYLIE Talbot) Other Illicit Drugs: No (08/20/2016 14:44:HAYLIE Talbot) VACCINE HISTORY Influenza Vaccine: Yes (08/20/2016 14:44:Marquita Hooper RN) Feeding Preference: Breast (08/20/2016 14:44:Marquita Hooper RN) Benefit of Breast Feed Discussed: Yes (08/20/2016 14:44:Judy Mcintosh RN) Circumcision: Yes (08/20/2016 14:44:Marquita Hooper RN) Classes Attended: Yes (08/20/2016 14:44:Marquita Hooper RN) Pain Management Plans: Medications (08/20/2016 14:44:Marquita Hooper RN) Plans for Labor and Delivery: None (08/20/2016 14:44:Marquita Hooper RN) Support Person: Taj Martin (08/20/2016 14:44:Marquita Hooper RN) Support Person Relationship: Significant Other (08/20/2016 14:44:Marquita Hooper RN) Cultural/Spritual Practice: No (08/20/2016 14:44:Marquita Hooper RN) Spir/Cult Dietary Needs: No (08/20/2016 14:44:Marquita Hooper RN) LIVING SITUATION/DISCHARGE PLAN Living Arrangements: House (08/20/2016 14:44:Marquita Hooper RN) Adequate Access to:: Electric; Heat; Refrigeration; Plumbing/Running water; Phone; Transportation (08/20/2016 14:44:Marquita Hooper RN) WIC Program: Yes (08/20/2016 14:44:Marquita Hooper RN) Discharge Handbag Finisher Person: Taj Luceroomnia (08/20/2016 14:44:Marquita Hooper RN) Person to Help after Discharge: Taj Crisomnia (08/20/2016 14:44:Marquita Hooper RN) Currently Using Commun Resources: Yes (08/20/2016 14:44:Marquita Hooper RN) Specify Current Resource Used: Medicaid (08/20/2016 14:44:Marquita Hooper RN) Car Seat for Discharge: Yes (08/20/2016 14:44:Marquita Hooper RN) LABS Blood Type: A Positive (08/20/2016 14:44:Marquita Hooper RN) Hemoglobin: 11.5 L (09/27/2016 12:25:QS system process) Hematocrit: 34.8 L (09/27/2016 12:25:QS system process) MCV: 79 L (09/27/2016 12:25:QS system process) Group Beta Strep: negative (08/20/2016 14:44:Marquita Hooper RN) Chlamydia: Negative (08/20/2016 14:44:Marquita Hooper RN) RPR/VDRL: Nonreactive (08/20/2016 14:44:Marquita Hooper RN) HIV Exposure Test: Negative (08/20/2016 14:44:Marquita Hooper RN) Hepatitis B: Negative (08/20/2016 14:44:Marquita Hooper RN) Rubella: Immune (08/20/2016 14:44:Marquita Hooper RN) Varicella: Susceptible (08/20/2016 14:44:Marquita Hooper RN) OB/PREVIOUS HISTORY History of Previous : No (08/20/2016 14:44:Marquita Hooper RN) History of Gestational Diabetes: No (08/20/2016 14:44:Marquita Hooper RN) History of PIH: No (08/20/2016 14:44:Marquita Hooper RN) History of Incompetent Cervix: No (08/20/2016 14:44:Marquita Hooper RN) History of Placenta Previa/Abrup: No (08/20/2016 14:44:Marquita Hooper RN) History of Macrosomia: No (08/20/2016 14:44:Marquita Hoopre RN) History of IUGR: No (08/20/2016 14:44:Marquita Hooper RN) History of Hemorrhage: No (08/20/2016 14:44:Marquita Hooper RN) History of Loss/Stillborn: No (08/20/2016 14:44:Marquita Hooper RN) History of : No (08/20/2016 14:44:Marquita Hooper RN) History of D (Rh) Sensitization: No (08/20/2016 14:44:Marquita Hooper RN) History Recurrent Loss/Stillborn: No (08/20/2016 14:44:Marquita Hooper RN) History Depression/PP Depression: No (08/20/2016 14:44:Marquita Hooper RN) History of Uterine Anomaly/RUTHY: No (08/20/2016 14:44:Marquita Hooper RN) History of Infertility: No (08/20/2016 14:44:Marquita Hooper RN) History of ART Treatment: No (08/20/2016 14:44:Marquita Hooper RN) History of RUTHY: No (08/20/2016 14:44:Marquita Hooper RN) Comments Obstetrical History: G1 - current Infant has mass in abdomen monitored by [facility] (08/20/2016 14:44:Marquita Hooper RN) MEDICAL HISTORY Med Hx Diabetes: No (08/20/2016 14:44:Marquita Hooper RN) Med Hx Hypertension: No (08/20/2016 14:44:Marquita Hooper RN) Med Hx Heart Disease: No (08/20/2016 14:44:Marquita Hooper RN) Med Hx Autoimmune Disorder: No (08/20/2016 14:44:Marquita Hooper RN) Med Hx Kidney Disease/UTI: No (08/20/2016 14:44:Marquita Hooper RN) Med Hx Neurologic/Epilepsy: No (08/20/2016 14:44:Marquita Hooper RN) Med Hx Psychiatric Disorders: No (08/20/2016 14:44:Marquita Hooper RN) Med Hx Hepatitis/Liver Disease: No (08/20/2016 14:44:Marquita Hooper RN) Med Hx Varicosities/Phlebitis: No (08/20/2016 14:44:Marquita Hooper RN) Med Hx Thyroid Dysfunction: No (08/20/2016 14:44:Marquita Hooper RN) Med Hx Trauma/Violence: No (08/20/2016 14:44:Marquita Hooper RN) Med Hx Blood Transfusion: No (08/20/2016 14:44:Marquita Hooper RN) Med Hx Pulmonary (Asthma,TB): No (08/20/2016 14:44:Marquita Hooper RN) Med Hx Breast: No (08/20/2016 14:44:Marquita Hooper RN) Med Hx WINDOW TRIMMER Surgery: No (08/20/2016 14:44:Marquita Hooper RN) Med Hx Hospitalization/Surgery: Yes (08/20/2016 14:44:Marquita Hooper RN) Med Hx Anesthetic Complications: No (08/20/2016 14:44:Marquita Hooper RN) Med Hx Abnormal Pap Smear: No (08/20/2016 14:44:Marquita Hooper RN) Other Medical Diseases: No (08/20/2016 14:44:Marquita Hooper RN) Med Hx Significant Family Hx: No (08/20/2016 14:44:Marquita Hooper RN) Details of Med/Surg Hx: Hospitalized for possible appendicitis (08/20/2016 14:44:Marquita Hooper RN) INFECTIOUS HISTORY Inf Hx Gonorrhea: No (08/20/2016 14:44:Marquita Hooper RN) Inf Hx Chlamydia: No (08/20/2016 14:44:Marquita Hooper RN) Inf Hx Syphilis: No (08/20/2016 14:44:Marquita Hooper RN) Inf Hx HIV/AIDS: No (08/20/2016 14:44:Marquita Hooper RN) Inf Hx Human Papilloma Virus: No (08/20/2016 14:44:Marquita Hooper RN) Inf Hx Pt/Partner Genital Herpes: No (08/20/2016 14:44:Marquita Hooper RN) Inf Hx Tuberculosis/Exposure: No (08/20/2016 14:44:Marquita Hooper RN) Inf Hx Hepatitis B,C: No (08/20/2016 14:44:Marquita Hooper RN) Inf Hx Rash or Viral Illness: No (08/20/2016 14:44:Marquita Hooper RN) GENETIC HISTORY Gen Hx Age >=35 at ASHLEY: No (08/20/2016 14:44:Marquita Hooper RN) Gen Hx Thalassemia: No (08/20/2016 14:44:Marquita Hooper RN) Gen Hx Congenital Heart Defect: No (08/20/2016 14:44:Marquita Hooper RN) Gen Hx Neural Tube Defect: No (08/20/2016 14:44:Marquita Hooper RN) Gen Hx Down's Syndrome: No (08/20/2016 14:44:Marquita Hooper RN) Gen Hx Moo-Sachs: No (08/20/2016 14:44:Marquita Hooper RN) Gen Hx Joaquin: No (08/20/2016 14:44:Marquita Hooper RN) Gen Hx Familial Dysautonomia: No (08/20/2016 14:44:Marquita Hooper RN) Gen Hx Sickle Cell Disease/Trait: No (08/20/2016 14:44:Marquita Hooper RN) Gen Hx Hemophilia/Blood Disorder: No (08/20/2016 14:44:Marquita Hooper RN) Gen Hx Muscular Dystrophy: No (08/20/2016 14:44:Marquita Hooper RN) Gen Hx Cystic Fibrosis: No (08/20/2016 14:44:Marquita Hooper RN) Gen Hx [place] Chorea: No (08/20/2016 14:44:Marquita Hooper RN) Gen Hx Mental Retardation/Autism: No (08/20/2016 14:44:Marquita Hooper RN) Gen Hx Tested for Fragile X: No (08/20/2016 14:44:Marquita Hooper RN) Gen Hx Other Inher/Chromosomal: No (08/20/2016 14:44:Marquita Hooper RN) Gen Hx Maternal Metabolic DO: No (08/20/2016 14:44:Marquita Hooper RN) Gen Hx Pt Father or FOB Defect: No (08/20/2016 14:44:Marquita Hooper RN) Gen Hx Other Genetic History: No (08/20/2016 14:44:Marquita Hooper RN) Gen Hx Drugs/Meds since LMP: No (08/20/2016 14:44:Marquita Hooper RN)
[2016-09-29 07:51] LABS: HEMATOCRIT 31.5 % (36.0-47.0); HEMOGLOBIN 10.5 g/dL (12.0-15.5); MEAN CORPUSCULAR HEMOGLOBIN 26.7 pg (27.0-33.4); MEAN CORPUSCULAR HGB CONC 33.3 g/dL (32.0-36.0); MEAN CORPUSCULAR VOLUME 80 fl (80-97); RED BLOOD COUNT 3.93 10^6/uL (3.72-5.28); RED CELL DISTRIBUTION WIDTH 14.4 % (11.5-14.0); WHITE BLOOD COUNT 13.3 10^3/uL (4.0-10.5)
[2016-09-29] MEDS: SENNOSIDES/DOCUSATE 8.6-50 MG 1 EACH TABLET PO SCH (10:14)
[2016-09-29] MEDS: DOCUSATE SODIUM 100 MG CAPSULE PO SCH ×2 (10:14→17:54)
[2016-09-29] MEDS: PRENATAL VITAMIN W-O CA NO5/FE FUMARATE/FA CAPSULE PO SCH (10:14)
[2016-09-29] MEDS: FERROUS SULFATE 325 MG TABLET PO SCH ×2 (10:14→17:54)
--- NOTE | 2016-09-29 14:14 | PDOC PROGRESS REPORT ---
Subjective-OB Subjective: Post Delivery Day: 1 21 year old G1 now P1 s/p pp day 1. Reports ambulating and voiding without difficulty. Reports Bowel movement this AM. but also pumping due to low blood sugars on baby. Awaiting results from peds on baby's abdominal u/s for known abdominal mass. Denies any needs at this time Physical Exam (OB) Vital Signs: Temp Pulse Resp BP Pulse Ox 98.1 F 88 18 130/62 H 99 09/29/16 07:32 09/29/16 07:32 09/29/16 07:32 09/29/16 07:32 09/29/16 07:32 Intake & Output 09/28/16 09/29/16 09/30/16 06:59 06:59 06:59 Weight 117.2 kg - General General Appearance: Appears well In distress: None - Lochia Lochia Amount: Scant < 10 ml Lochia Color: Rubra/Red - Abdomen Description: Soft Hernia Present: No Fundal Description: Firm, Midline Fundal Height: u/u - u/2 - Respiratory Respiratory Status: No respiratory distress - Neurological Cognition: Normal Orientation: AAOx4 - Psychological Associated symptoms: Normal affect, Normal mood - bonding well with baby. Helpful FOB and family at bedside. Objective-Diagnostic Laboratory: 09/29/16 07:27 09/29/16 07:27 WBC 13.3 H RBC 3.93 Hgb 10.5 L Hct 31.5 L MCV 80 MCH 26.7 L MCHC 33.3 RDW 14.4 H Plt Count 147 L Assessment and Plan(PN) - Assessment and Plan (1) Delivery normal Is this a current diagnosis for this admission?: YesPlan: conitnue stay (2) Anemia Qualifiers: Anemia type: unspecified type Qualified Code(s): D64.9 - Anemia, unspecified Is this a current diagnosis for this admission?: YesPlan: iron supplementation - Time Spent with Patient Time with patient: 15-25 minutes Medications reviewed and adjusted accordingly: Yes - Disposition Anticipated Discharge: Home Within: within 24 hours
[2016-09-30] MEDS: IBUPROFEN 800 MG TABLET PO SCH ×2 (06:14→13:31)
[2016-09-30 09:00] VITALS: BP 98/75
[2016-09-30] MEDS: FERROUS SULFATE 325 MG TABLET PO SCH (09:42)
[2016-09-30] MEDS: DOCUSATE SODIUM 100 MG CAPSULE PO SCH (09:42)
[2016-09-30] MEDS: PRENATAL VITAMIN W-O CA NO5/FE FUMARATE/FA CAPSULE PO SCH (09:42)
[2016-09-30] MEDS: SENNOSIDES/DOCUSATE 8.6-50 MG 1 EACH TABLET PO SCH (09:42)
--- NOTE | 2016-09-30 10:14 | PDOC PROGRESS REPORT ---
Subjective-OB Subjective: Post Delivery Day: 21 year old. Denies any needs at this time Doing well, hsb in room, holding baby, diet taken well, ambulating, lochia scant , Physical Exam (OB) Vital Signs: Temp Pulse Resp BP Pulse Ox 98.2 F 83 18 98/75 L 99 09/30/16 08:24 09/30/16 08:24 09/30/16 08:24 09/30/16 07:40 09/30/16 08:24 - Lochia Lochia Amount: Scant < 10 ml Lochia Color: Rubra/Red - Abdomen Description: Soft, Round Hernia Present: No Fundal Description: Firm, Midline Fundal Height: u/u - u/2 Objective-Diagnostic Laboratory: 09/29/16 07:27 Assessment and Plan(PN) - Assessment and Plan (1) Anemia Qualifiers: Anemia type: unspecified type Qualified Code(s): D64.9 - Anemia, unspecified Is this a current diagnosis for this admission?: Yes (2) Delivery normal Is this a current diagnosis for this admission?: Yes - Time Spent with Patient Time with patient: Less than 15 minutes Medications reviewed and adjusted accordingly: Yes - Disposition Anticipated Discharge: Home Within: Other - home today
--- NOTE | 2016-09-30 10:17 | PDOC DISCHARGE SUMMARY ---
Final Diagnosis Discharge Date: 09/30/16 - Final Diagnosis (1) Anemia Is this a current diagnosis for this admission?: Yes (2) Delivery normal Is this a current diagnosis for this admission?: Yes Discharge Data - Discharge Medication Home Medications: Pnv No.122/Iron/Folic Acid [ Multi Tablet] 1 each PO DAILY 08/20/16 Gestational Age: 40.2 Reason(s) for Admission: PROM Procedures: NST, Ultrasound Intrapartum Procedure(s): Spontaneous Vaginal Delivery Complication(s): Laceration-Perineal Laceration-Degree: 1st - [place] Data Baby 1 Male at 1 minute: 8 at 5 minutes: 9 Weight: 4.139 kg Home with Mother: Yes Complications: No - Diagnosis Test Laboratory: Temp Pulse Resp BP Pulse Ox 98.2 F 83 18 98/75 L 99 09/30/16 08:24 09/30/16 08:24 09/30/16 08:24 09/30/16 07:40 09/30/16 08:24 09/27/16 09/27/16 09/29/16 11:40 12:25 07:27 RBC 4.40 3.93 Hgb 11.5 L 10.5 L Hct 34.8 L 31.5 L Urine Opiates Screen NEGATIVE - Discharge information/Instructions Discharge Activity: Activity As Tolerated, No Lifting Over 10 Pounds, Pelvic Rest, No tub bath Discharge Diet: As Tolerated, Regular Disposition: HOME, SELF-CARE Follow up with: [facility] in: 4, Weeks
== END 2016-09-30 14:07 | disposition home or self-care (01) | DRG 775 ==
LOC: LC 11:30 → LR 12:15 → 2S 09-28 03:42
PROVIDERS: ADMIT Obstetrics & Gynecology; ATTEND Obstetrics & Gynecology
PROC: 4A1HXCZ Monitoring of Products of Conception, Cardiac Rate, External Approach (ICD-10-PCS; 2016-09-27)
PROC: 10E0XZZ Delivery of Products of Conception, External Approach (ICD-10-PCS; principal; 2016-09-28)
PROC: 0HQ9XZZ Repair Perineum Skin, External Approach (ICD-10-PCS; 2016-09-28)
DX: O42.02 Full-term premature rupture of membranes, onset of labor within 24 hours of rupture (principal); O70.0 First degree perineal laceration during delivery; O99.02 Anemia complicating childbirth; D64.9 Anemia, unspecified; O77.0 Labor and delivery complicated by meconium in amniotic fluid; Z87.891 Personal history of nicotine dependence; Z91.018 Allergy to other foods; Z3A.40 40 weeks gestation of pregnancy; Z37.0 Single live birth
CPT/HCPCS: 36415; 59025; 80307; 81005; 84112; 85025; 85027; 86592; 86850; 86900; 86901; J2300; J2405; J2590; J3490

== ENCOUNTER 2019-09-24 20:22 | Emergency (ER) | payer MEDICAID ==
[2019-09-24 20:29] VITALS: BP 134/73
--- NOTE | 2019-09-24 20:32 | ER Document Report ---
ED Medical Screen (RME) - General Chief Complaint: Lower Abdominal Pain Stated Complaint: LOWER ABDOMINAL PAIN 9 WKS PREG Time Seen by Provider: 09/24/19 20:29 Primary Care Provider: PINO HARTLEY MD [Primary Care Provider] - Follow up as needed Mode of Arrival: Ambulatory Information source: Patient Notes: 24-year-old female presented to ED for complaint of vaginal bleeding and pelvic pain. She states she is about 9 or 10 weeks . She states that she is 3 para 2. She states her blood type is a positive I did check the records and the blood screen did show a positive blood type. Patient states that the pain started today and it is sharp every time she moves her legs to walk. She is alert oriented respirations regular nonlabored. She is walking into the emergency room herself. She states she just noticed the bleeding on the toilet paper has not noticed any in her close. She states she has not soaked a pad. I have greeted and performed a rapid initial assessment of this patient. A comprehensive ED assessment and evaluation of the patient, analysis of test results and completion of medical decision making process will be conducted by an additional ED providers. TRAVEL OUTSIDE OF THE [place] IN LAST 30 DAYS: No - Related Data Allergies/Adverse Reactions: No Known Allergies Allergy (Verified 09/25/16 08:24) Physical Exam - Vital signs Vitals: Temp Pulse Resp BP Pulse Ox 98.3 F 98 20 134/73 H 98 09/24/19 20:27 09/24/19 20:27 09/24/19 20:27 09/24/19 20:27 09/24/19 20:27 Course - Vital Signs Vital signs: Temp Pulse Resp BP Pulse Ox 98.3 F 98 20 134/73 H 98 09/24/19 20:27 09/24/19 20:27 09/24/19 20:27 09/24/19 20:27 09/24/19 20:27 Doctor's Discharge - Discharge Referrals: PINO HARTLEY MD [Primary Care Provider] - Follow up as needed
[2019-09-24 21:00] LABS: ABSOLUTE BASOPHILS # (AUTO) 0.1 10^3/uL (0.0-0.2); ABSOLUTE EOSINOPHILS # (AUTO) 0.1 10^3/uL (0.0-0.6); ABSOLUTE LYMPHOCYTES (AUTO) 1.3 10^3/uL (0.5-4.7); ABSOLUTE MONOCYTES (AUTO) 0.9 10^3/uL (0.1-1.4); ABSOLUTE NEUT (AUTO) 5.2 10^3/uL (1.7-8.2); EOSINOPHILS % (AUTO) 1.6 % (0-6); HEMATOCRIT 36.9 % (36.0-47.0); HEMOGLOBIN 12.6 g/dL (12.0-15.5); LYMPHOCYTES % (AUTO) 16.7 % (13-45); MEAN CORPUSCULAR HEMOGLOBIN 26.7 pg (27.0-33.4); MEAN CORPUSCULAR HGB CONC 34.1 g/dL (32.0-36.0); MEAN CORPUSCULAR VOLUME 78 fl (80-97); MONOCYTES % (AUTO) 11.4 % (3-13); PLATELET COUNT 227 10^3/uL (150-450); RED BLOOD COUNT 4.72 10^6/uL (3.72-5.28); RED CELL DISTRIBUTION WIDTH 14.1 % (11.5-14.0); SEGMENTED NEUTROPHILS % (AUTO) 69.3 % (42-78); TOTAL CELLS COUNTED % (AUTO) 100 %; WHITE BLOOD COUNT 7.5 10^3/uL (4.0-10.5)
[2019-09-24 21:04] LABS: APPEARANCE,URINE CLEAR; BILIRUBIN,URINE NEGATIVE (NEGATIVE); COLOR,URINE STRAW; GLUCOSE, URINE NEGATIVE (NEGATIVE); KETONES,URINE NEGATIVE (NEGATIVE); PROTEIN,URINE NEGATIVE (NEGATIVE); URINE SPECIFIC GRAVITY 1.003; UROBILINOGEN,URINE NEGATIVE mg/dL (<2.0)
[2019-09-24 21:23] LABS: ALKALINE PHOSPHATASE 43 U/L (38-126); ANION GAP 12 (5-19); ASPARTATE AMINO TRANSFERASE 19 U/L (14-36); BILIRUBIN,DIRECT 0.2 mg/dL (0.0-0.4); BILIRUBIN,TOTAL 0.2 mg/dL (0.2-1.3); BLOOD UREA NITROGEN 8 mg/dL (7-20); CARBON DIOXIDE 21 mmol/L (22-30); CHLORIDE 104 mmol/L (98-107); GLUCOSE 94 mg/dL (75-110); POTASSIUM 3.8 mmol/L (3.6-5.0); TOTAL PROTEIN 7.2 g/dL (6.3-8.2)
--- NOTE | 2019-09-24 22:44 | ER Document Report ---
ED GI/ - General Chief Complaint: Pelvic Pain Stated Complaint: LOWER ABDOMINAL PAIN 9 WKS PREG Time Seen by Provider: 09/24/19 20:29 Primary Care Provider: GARRY KELLEY [Provider Group] - 09/26/19 Mode of Arrival: Ambulatory Notes: Patient is a G3, P2 about 9 to 10 weeks female who presents the emergency department with a chief complaint of lower abdominal pain, small amount of vaginal bleeding, and green discharge. Patient states that she noticed some blood on the paper when she went to the bathroom earlier today. She noticed some green discharge and a "gush of fluid" when she went to the bathroom here in the emergency department earlier. Patient has had com plications with previous births. States that she had premature at 34 weeks. Her other child ended up with heart complications. States that she is only sexually active with one partner. TRAVEL OUTSIDE OF THE [place] IN LAST 30 DAYS: No - Related Data Allergies/Adverse Reactions: No Known Allergies Allergy (Verified 09/25/16 08:24) Past Medical History - General Information source: Patient - Social History Smoking Status: Never Smoker Family History: Reviewed & Not Pertinent Patient has suicidal ideation: No Patient has homicidal ideation: No Review of Systems - Review of Systems Notes: REVIEW OF SYSTEMS: CONSTITUTIONAL : Denies recent illness. Denies recent unintentional weight loss. Denies fever, chills, or sweats. EENT: Denies eye, ear, throat, or mouth pain, discharge, or symptoms. Denies nasal or sinus congestion. CARDIOVASCULAR: Denies chest pain. RESPIRATORY: Denies shortness of breath, cough, congestion, difficulty breathing, or wheezing. GASTROINTESTINAL: Denies nausea, vomiting, and diarrhea. Denies abdominal pain. Denies constipation. GENITOURINARY: Denies difficulty urinating, burning, blood in urine, urgency or frequency. FEMALE GENITOURINARY: See HPI. MUSCULOSKELETAL: Denies neck and back pain. Denies joint pain or swelling. SKIN: Denies rash, itchiness, or lesions HEMATOLOGIC : Denies easy bruising or bleeding. LYMPHATIC: Denies swollen, painful, enlarged glands. NEUROLOGICAL: Denies no numbness or tingling denies weakness. Denies headache. Denies altered mental status. Denies alteration in speech. PSYCHIATRIC: Denies stress, anxiety, alteration in sleep patterns, or depression. All other systems reviewed and negative. Physical Exam - Vital signs Vitals: Temp Pulse Resp BP Pulse Ox 98.3 F 98 20 134/73 H 98 09/24/19 20:27 09/24/19 20:09/24/19 20:09/24/19 20:09/24/19 20:27 - Notes Notes: PHYSICAL EXAMINATION: GENERAL: Appears well, healthy, well-nourished, no acute distress. HEAD: Normocephalic, atraumatic. EYES: PERRL, conjunctiva normal, all extraocular movements intact, sclera nonicteric ENT: Moist mucous membranes. NECK: Supple, no noticeable swelling, redness, rash. Normal range of motion. LUNGS: Equal breath sounds bilaterally and clear to auscultation. No wheezes rales or rhonchi. CARDIOVASCULAR: S1-S2, regular rate, regular rhythm. Radial pulses 2+, normal. ABDOMEN: Normoactive bowel sounds. Soft, mildly tender mid lower abdomen, no guarding, no rebound tenderness, and no masses palpated. EXTREMITIES: Normal strength and range of motion, no pitting or edema. No cyanosis. NEUROLOGICAL: Moves all extremities upon command. Strength 5/5 in all extremities. PSYCH: Normal mood, normal affect. SKIN: Warm, dry. No rash, lesions, ulcerations noted. Normal skin turgor. WEAVER TIRE CORD: Course - Re-evaluation Re-evalutation: 09/25/19 00:[address] Adhikari, the INTERLOCKER on-call and he is advising that the patient get treated for gonorrhea and chlamydia and follow-up with [facility] on Thursday. Patient is refusing the Rocephin injection at this time. She states that she would like to wait, but she has agreed to take the azithromycin. Follow-up precautions were given. Verbal discharge instructions were given to the patient. They verbalized understanding. They are stable for discharge. 09/25/19 00:23 I was told by the primary nurse that the patient had left before receiving her azithromycin. Discharge instructions were changed due to the patient leaving prior to receiving azithromycin. - Vital Signs Vital signs: Temp Pulse Resp BP Pulse Ox 98.3 F 98 20 134/73 H 98 09/24/19 20:27 09/24/19 20:09/24/19 20:09/24/19 20:27 09/24/19 20:27 - Laboratory Result Diagrams: 09/24/19 20:35 09/24/19 20:35 Laboratory results interpreted by me: 09/24/19 09/24/19 09/24/19 20:35 20:35 20:35 MCV 78 L MCH 26.7 L RDW 14.1 H Sodium 136.9 L Carbon Dioxide 21 L Creatinine 0.44 L Beta HCG, Quant 04097.00 H Leukocyte Esterase Rfl TRACE H Discharge - Discharge Clinical Impression: Pelvic pain Qualifiers: Weeks of gestation: 11 weeks Qualified Code(s): Z3A.11 - 11 weeks gestation of Condition: Stable Disposition: ELOPED Additional Instructions: You are seen today in the emergency department for pelvic pain during . You are 11 weeks . Please follow-up with [facility] on Thursday in regards to this visit. Referrals: [facility] [Provider Group] - 09/26/19
--- NOTE | 2019-09-24 23:26 | RADIOLOGY REPORT (SQ) ---
EXAM: First trimester OB ultrasound CLINICAL INDICATION: Vaginal bleeding. Pelvic pain. 9010 weeks . COMPARISON: None. TECHNIQUE: First trimester OB ultrasound was performed. FINDINGS: Uterus: The uterus measures 11.0 x 7.6 x 9.0 cm. In the fundus is a gestational sac with a pole. The crown-rump length is 4.36 cm which correlates with a gestational age of 11 weeks one day. The cervix is closed and measures 3.1 cm. Cardiac activity is noted at 175 bpm. Early placental formation is seen anteriorly. Ovaries and adnexa: The right ovary measures 3.4 x 1.9 x 2.5 cm and is morphologically normal with normal color and spectral waveforms. The left ovary is not clearly seen. No free fluid. No adnexal mass. IMPRESSION: Single living intrauterine with estimated gestational age of 11 weeks one day and estimated delivery date of 04/13/2020
[2019-09-24 23:29] LABS: T.VAGINALIS (WET MOUNT) NO TRICHOMONAS SEEN; YEAST (WET MOUNT) NO YEAST SEEN
[2019-09-24 23:30] LABS: RBCS (WET MOUNT) FEW RBCS SEEN; WBCS (WET MOUNT) 1+ WBCS SEEN
[2019-09-25] MEDS ORDERED: AZITHROMYCIN 250 MG TABLET PO ONE (00:14)
[2019-09-25 00:53] LABS: CHLAM PCR NOT DETECTED (NOT DETECT)
== END 2019-09-25 00:26 | disposition left against medical advice (07) ==
LOC: ER 20:22
DX: O26.891 Other specified pregnancy related conditions, first trimester (principal); R10.2 Pelvic and perineal pain; O20.9 Hemorrhage in early pregnancy, unspecified; Z3A.11 11 weeks gestation of pregnancy; Z53.20 Procedure and treatment not carried out because of patient's decision for unspecified reasons
CPT/HCPCS: 36415; 76801; 80053; 81001; 84702; 85025; 87086; 87210; 87491; 87591; 99284

== ENCOUNTER 2020-04-24 11:15 | Outpatient (CLI) | payer MEDICAID ==
[2020-04-24 12:29] LABS: ABSOLUTE BASOPHILS # (AUTO) 0.1 10^3/uL (0.0-0.2); ABSOLUTE EOSINOPHILS # (AUTO) 0.1 10^3/uL (0.0-0.6); ABSOLUTE LYMPHOCYTES (AUTO) 1.1 10^3/uL (0.5-4.7); ABSOLUTE MONOCYTES (AUTO) 0.6 10^3/uL (0.1-1.4); ABSOLUTE NEUT (AUTO) 7.8 10^3/uL (1.7-8.2); BASOPHILS % (AUTO) 0.6 % (0-2); EOSINOPHILS % (AUTO) 0.7 % (0-6); HEMATOCRIT 34.1 % (36.0-47.0); HEMOGLOBIN 11.7 g/dL (12.0-15.5); LYMPHOCYTES % (AUTO) 11.4 % (13-45); MEAN CORPUSCULAR HEMOGLOBIN 26.7 pg (27.0-33.4); MEAN CORPUSCULAR HGB CONC 34.3 g/dL (32.0-36.0); MEAN CORPUSCULAR VOLUME 78 fl (80-97); PLATELET COUNT 159 10^3/uL (150-450); RED BLOOD COUNT 4.37 10^6/uL (3.72-5.28); RED CELL DISTRIBUTION WIDTH 14.2 % (11.5-14.0); SEGMENTED NEUTROPHILS % (AUTO) 81.3 % (42-78); TOTAL CELLS COUNTED % (AUTO) 100 %; WHITE BLOOD COUNT 9.6 10^3/uL (4.0-10.5)
[2020-04-24] MEDS ORDERED: MAG HYDROX/AL HYDROX/SIMETH SUSP 30 ML UDCUP ONE (12:42)
[2020-04-24] MEDS ORDERED: BUTALB/ACETAMINOPHEN/CAFFEINE 1 TAB EACH ONE (12:42)
[2020-04-24 12:46] LABS: ALBUMIN 3.1 g/dL (3.5-5.0); ALKALINE PHOSPHATASE 119 U/L (38-126); ANION GAP 8 (5-19); ASPARTATE AMINO TRANSFERASE 17 U/L (14-36); BILIRUBIN,DIRECT 0.1 mg/dL (0.0-0.4); BILIRUBIN,TOTAL 0.3 mg/dL (0.2-1.3); BLOOD UREA NITROGEN 11 mg/dL (7-20); CALCIUM 8.9 mg/dL (8.4-10.2); CARBON DIOXIDE 20 mmol/L (22-30); CHLORIDE 106 mmol/L (98-107); GLUCOSE 82 mg/dL (75-110); POTASSIUM 3.9 mmol/L (3.6-5.0); TOTAL PROTEIN 5.8 g/dL (6.3-8.2); URIC ACID 5.2 mg/dL (2.5-6.2)
[2020-04-24 12:51] LABS: APPEARANCE,URINE CLEAR; BILIRUBIN,URINE NEGATIVE (NEGATIVE); COLOR,URINE STRAW; GLUCOSE, URINE NEGATIVE (NEGATIVE); KETONES,URINE NEGATIVE (NEGATIVE); LEUKOCYTE ESTERASE,URINE NEGATIVE (NEGATIVE); NITRITE,URINE NEGATIVE (NEGATIVE); PROTEIN,URINE NEGATIVE (NEGATIVE); URINE SPECIFIC GRAVITY 1.006; UROBILINOGEN,URINE NEGATIVE mg/dL (<2.0)
[2020-04-24] MEDS ORDERED: MAG HYDROX/AL HYDROX/SIMETH SUSP 30 ML UDCUP PO PRN (12:59)
[2020-04-24] MEDS ORDERED: BUTALB/ACETAMINOPHEN/CAFFEINE 1 TAB EACH PO ONE (12:59)
[2020-04-24 13:03] LABS: URINE AMPHETAMINES SCREEN NEGATIVE; URINE BARBITURATES SCREEN NEGATIVE; URINE BENZODIAZEPINES SCREEN NEGATIVE; URINE COCAINE SCREEN NEGATIVE; URINE MARIJUANA (THC) SCREEN NEGATIVE; URINE METHADONE SCREEN NEGATIVE; URINE PHENCYCLIDINE SCREEN NEGATIVE
[2020-04-24 13:04] LABS: UR PRO/CREAT RATIO RESULT 0.4 mg/mg (0.0-0.2); URINE CREATININE 34.7 mg/dL (16-327); URINE PROTEIN 14.6 mg/dL (<12)
--- NOTE | 2020-04-24 13:40 | Non Stress Test Report ---
Non Stress Test Datetime Report Generated by CPN: 04/24/2020 13:40 DEMOGRAPHIC Test Number: 1 EGA NST: 40.0 INDICATION Indication for Study (NST) Other: PIH workup VITAL SIGNS Temperature - NST: 98.4 Pulse - NST: 81 RESP - NST: 18 NBPSYS NST: 119 NBPDIA NST: 75 MONITORING Monitor Explained: Monitor Explained; Test Explained; Patient Verbalized Understanding Time on Monitor: 04/24/2020 11:40 Time off Monitor: 04/24/2020 12:58 NST Duration: 78 NST INTERVENTIONS NST Interventions: PO Hydration Physician Notified NST: J. Mccormick, CNM BABY A: [id number] BABY A Movement : Present Contraction Frequency : irregular FHR Baseline : 125 Accelerations : 15X15 Decelerations : None Variability : Moderate 6-25bpm NST Review: Meets Criteria for Reactive NST NST Review and Verified By : JesRNC NST Results: Reactive NST REPORT Report Trigger: Send Report
== END 2020-04-24 13:11 | disposition home or self-care (01) ==
LOC: LC 11:15
PROVIDERS: ATTEND Obstetrics & Gynecology
DX: O26.893 Other specified pregnancy related conditions, third trimester (principal); R51.9 Headache, unspecified; Z3A.40 40 weeks gestation of pregnancy
CPT/HCPCS: 59025; 36415; 83615; 84156; 84550; 82570; 85025; 80053; 81001; 80307; J3490 ×2

== ENCOUNTER 2020-04-25 16:10 | Inpatient (IN) | payer MEDICAID ==
[2020-04-25] MEDS ORDERED: RINGERS SOLUTION,LACTATED 1,000 ML IV PRN (16:49)
[2020-04-25] MEDS ORDERED: OXYTOCIN/0.9 % SODIUM CHLORIDE 30 UNIT/500 ML RTUINJ IV PRN (16:49)
[2020-04-25] MEDS ORDERED: RINGERS SOLUTION,LACTATED 1,000 ML IV ONE (16:49)
[2020-04-25 17:02] LABS: APPEARANCE,URINE CLEAR; BILIRUBIN,URINE NEGATIVE (NEGATIVE); COLOR,URINE YELLOW; GLUCOSE, URINE NEGATIVE (NEGATIVE); KETONES,URINE NEGATIVE (NEGATIVE); LEUKOCYTE ESTERASE,URINE TRACE (NEGATIVE); NITRITE,URINE NEGATIVE (NEGATIVE); PROTEIN,URINE NEGATIVE (NEGATIVE); URINE SPECIFIC GRAVITY 1.011; UROBILINOGEN,URINE NEGATIVE mg/dL (<2.0)
--- NOTE | 2020-04-25 17:04 | Admission Physical ---
Datetime Report Generated by CPN: 04/25/2020 17:04 CURRENT ADMISSION Hx Assessment: The History has been Reviewed and is Current Chief Complaint: Scheduled Induction of Labor Indication for Induction: Postterm Admit Impression : Postterm, Intrauterine Admit Plan: Admit to Unit; Initiate Labor Induction Protocol ALLERGIES Medication Allergies: No Medication Allergies: No Known Allergies (09/25/2016) Latex: No Latex Allergies OBSTETRICAL HISTORY EDC: 04/18/2020 00:00 : 3 Para: 2 Term: 1 : 1 SAB: 0 IAB: 0 Ectopic: 0 Livin Cesareans: 0 VBACs: 0 Multiple Births: 0 Gestational Diabetes: No Rh Sensitization: No Incompetent Cervix: No RUTHY: No Infertility: No ART Treatment: No Uterine Anomaly: No IUGR: No Hx Previous C/S: No Macrosomia: Yes Hx Loss/Stillborn: No PIH: Yes Hx : No Placenta Previa/Abruption: No Depression/PP Depression: Yes PTL/PROM: Yes Post Hemorrhage: No Current Procedures: Ultrasound; NST Obstetrical History Comments: g-1 Male term 9+2 g-2 Male 34 weeks PROM g-3 current SEE RECORDS Alcohol: No Marijuana : No Cocaine: No Other Illicit Drugs: No Cigarettes: Current Some Day Smoker. [id number] Cigarette Frequency: < 5 per day Advised to Stop: No Cigarette Comments: stoppedsmaugust MEDICAL HISTORY Diabetes: No Blood Transfusion: No Pulmonary Disease (Asthma, TB): No Breast Disease: No Hypertension: No Business Services Manager Surgery: No Heart Disease: No Hosp/Surgery: No Autoimmune Disorder: No Anesthetic Complications: No Kidney Disease: No Abnormal Pap Smear: No Neuro/Epilepsy: No Psychiatric Disorders: No Other Medical Diseases: No Hepatitis/Liver Disease: No Significant Family History: No Varicosities/Phlebitis: No Trauma/Violence : No Thyroid Dysfunction: No INFECTIOUS HISTORY Gonorrhea: No Genital Herpes: No Chlamydia: No Tuberculosis: No Syphilis: No Hepatitis: No HIV/AIDS Exposure: No Rash or Viral Illness: No HPV: No PHYSICAL EXAM General: Normal Heart: Normal Lungs: Normal Abdomen: Normal Genitourinary Exam: Normal Extremities: Normal Pelvic Type: Adequate Physical Exam Comments: proven to 9lbs 2 oz Vital Signs: Reviewed MEMBRANES Membranes: Intact FETUS A EGA: 41.0 Monitoring: External US Decelerations: None FHR Category: Category I Admit Comment: 24yo @ 41wga into L_D for IOL secondary to post dates . Pt is A pos, Rubella immune, varicella non-immune. GBS negative with complicated by excessive weight gain (>40lbs), obesity, and anemia. Pt also with elevated 1hr at 28w but normal 3hr. Plan is IOL with pitocin at this time, epidural prn. Dr. Larry is the OB religious education teacher and aware of admission and pt status. PLANS FOR LABOR AND DELIVERY Labor and Delivery: None Pain Management: Epidural Feeding Preference: Breast Benefit of Breast Feed Discussed: Yes Circumcision: N/A INFORMED CONSENT Assignment: Courtney Larry MD Signature: with User ID: Louis : with User ID: [email or web address]
[2020-04-25 17:26] LABS: URINE AMPHETAMINES SCREEN NEGATIVE; URINE BENZODIAZEPINES SCREEN NEGATIVE; URINE COCAINE SCREEN NEGATIVE; URINE MARIJUANA (THC) SCREEN NEGATIVE; URINE METHADONE SCREEN NEGATIVE; URINE PHENCYCLIDINE SCREEN NEGATIVE
[2020-04-25 17:30] LABS: URINE BARBITURATES SCREEN UNCONFIRMED POSITIVE
[2020-04-25 17:34] LABS: ABSOLUTE EOSINOPHILS # (AUTO) 0.1 10^3/uL (0.0-0.6); ABSOLUTE LYMPHOCYTES (AUTO) 1.2 10^3/uL (0.5-4.7); ABSOLUTE MONOCYTES (AUTO) 0.7 10^3/uL (0.1-1.4); ABSOLUTE NEUT (AUTO) 7.1 10^3/uL (1.7-8.2); BASOPHILS % (AUTO) 0.3 % (0-2); EOSINOPHILS % (AUTO) 0.6 % (0-6); HEMATOCRIT 32.7 % (36.0-47.0); LYMPHOCYTES % (AUTO) 12.9 % (13-45); MEAN CORPUSCULAR HEMOGLOBIN 26.4 pg (27.0-33.4); MEAN CORPUSCULAR HGB CONC 33.5 g/dL (32.0-36.0); MEAN CORPUSCULAR VOLUME 79 fl (80-97); MONOCYTES % (AUTO) 7.8 % (3-13); PLATELET COUNT 156 10^3/uL (150-450); RED BLOOD COUNT 4.16 10^6/uL (3.72-5.28); RED CELL DISTRIBUTION WIDTH 14.7 % (11.5-14.0); SEGMENTED NEUTROPHILS % (AUTO) 78.4 % (42-78); TOTAL CELLS COUNTED % (AUTO) 100 %; WHITE BLOOD COUNT 9.1 10^3/uL (4.0-10.5)
[2020-04-25] MEDS ORDERED: LIDOCAINE 1% INJ-PF (10 MG/ML) 30 ML SDV ONE (17:44)
[2020-04-25] MEDS ORDERED: OXYTOCIN 10 UNIT/ML VIAL ONE (17:44)
[2020-04-25] MEDS ORDERED: MISOPROSTOL 0.2 MG TABLET ONE (17:44)
[2020-04-25] MEDS ORDERED: OXYTOCIN/0.9 % SODIUM CHLORIDE 30 UNIT/500 ML RTUINJ ONE (17:45)
[2020-04-25 17:55] LABS: ALBUMIN 3.1 g/dL (3.5-5.0); ALKALINE PHOSPHATASE 115 U/L (38-126); ANION GAP 6 (5-19); ASPARTATE AMINO TRANSFERASE 16 U/L (14-36); BILIRUBIN,DIRECT 0.2 mg/dL (0.0-0.4); BILIRUBIN,TOTAL 0.2 mg/dL (0.2-1.3); BLOOD UREA NITROGEN 12 mg/dL (7-20); CALCIUM 9.1 mg/dL (8.4-10.2); CARBON DIOXIDE 21 mmol/L (22-30); CHLORIDE 107 mmol/L (98-107); GLUCOSE 74 mg/dL (75-110); POTASSIUM 4.1 mmol/L (3.6-5.0); TOTAL PROTEIN 5.7 g/dL (6.3-8.2); URIC ACID 4.7 mg/dL (2.5-6.2)
[2020-04-25] MEDS ORDERED: EPHEDRINE SULFATE INJ 50 MG/1 ML AMPULE ONE (19:34)
[2020-04-25] MEDS ORDERED: ROPIVACAINE HCL 0.2% INJ/PF (2 MG/ML) 20 ML SDV ONE (19:34)
[2020-04-25] MEDS ORDERED: FENTANYL/BUPIVACAINE/NS/PF 300 MCG/150 ML RTUINJ EPI ONE (19:34)
[2020-04-26] MEDS ORDERED: MAGNESIUM HYDROXIDE SUSP 30 ML UDCUP PO PRN (00:13)
[2020-04-26] MEDS ORDERED: PROMETHAZINE HCL 25 MG TABLET PO PRN (00:13)
[2020-04-26] MEDS ORDERED: PSEUDOEPHEDRINE HCL 30 MG TABLET PO PRN (00:13)
[2020-04-26] MEDS ORDERED: PROMETHAZINE HCL INJ 25 MG/1 ML VIAL IV PRN (00:13)
[2020-04-26] MEDS ORDERED: OXYTOCIN/0.9 % SODIUM CHLORIDE 30 UNIT/500 ML RTUINJ IV PRN (00:13)
[2020-04-26] MEDS ORDERED: BENZOCAINE/MENTHOL AEROSOL SPRAY 56 ML TOP PRN (00:13)
[2020-04-26] MEDS ORDERED: NA PHOS,M-B/NA PHOS,DI-BA (ADULT) 133 ML ENEMA PR PRN (00:13)
[2020-04-26] MEDS ORDERED: GLYCERIN/WITCH HAZEL LEAF 1 EACH MED..WIPE TP PRN (00:13)
[2020-04-26] MEDS ORDERED: DIPHENHYDRAMINE HCL 25 MG CAPSULE PO PRN (00:13)
[2020-04-26] MEDS ORDERED: ZOLPIDEM TARTRATE 5 MG TABLET PO PRN (00:13)
[2020-04-26] MEDS ORDERED: MEASLES,MUMPS&RUBELLA VACC/PF 0.5 ML VIAL SUBCUT PRN (00:13)
[2020-04-26] MEDS ORDERED: PROMETHAZINE HCL 25 MG SUPP.RECT PR PRN (00:13)
[2020-04-26] MEDS ORDERED: DIPH/PERTUSS(ACELL)/TETANUS VAC/PF 0.5 ML SYR (>=10YO) IM PRN (00:13)
[2020-04-26] MEDS ORDERED: ACETAMINOPHEN 650 MG SUPP.RECT PR PRN (00:13)
[2020-04-26] MEDS ORDERED: ACETAMINOPHEN WITH CODEINE #3 TABLET PO PRN ×2 (00:13)
[2020-04-26] MEDS ORDERED: DIBUCAINE 1% OINTMENT 28 GM TP PRN (00:13)
[2020-04-26] MEDS ORDERED: IBUPROFEN 800 MG TABLET ONE (00:32)
[2020-04-26] MEDS: IBUPROFEN 800 MG TABLET PO SCH ×4 (00:35→21:06)
--- NOTE | 2020-04-26 01:21 | Delivery Summary ---
Del Sum A-C Datetime Report Generated by CPN: 04/26/2020 01:20 DELIVERY PERSONNEL DELIVERY PERSONNEL: [id number] Delivery Doctor:: Courtney Larry MD Labor and Delivery Nurse:: Cassia Irwin RN Nursery Nurse:: Yvette Gibbons RN Electromagnet Crane Operator/PRODUCT SUPPORT CONSULTANT: Maryam Moreira, ST Electromagnet Crane Operator/PRODUCT SUPPORT CONSULTANT: Dana Akers, PIN TICKET MACHINE OPERATOR MATERNAL INFORMATION Delivery Anesthesia: Epidural Medications After Delivery: Pitocin 30 Units in 500ml NS/D5W Maternal Complications: None Provider Comments: Called to patients room, complete and +2 station with urge to push. Patient pushed through three contractions and delivered a viable female over an intact perineum. After delivery of the head, the left hand then arm delivered. THis was the anterior arm. The rest of the body quickly followed. vigorous at delivery. COrd clamping delayed 30 seconds. placed skin to skin with mother. Both stable. Fundus firm LABOR SUMMARY EDC: 04/18/2020 00:00 No. Babies in Womb: 1 Attempted: No Labor Anesthesia: Intrathecal LABOR INFORMATION Reason for Induction: Post Dates Onset of Labor: 04/25/2020 22:58 Complete Dilatation: 04/25/2020 23:46 Oxytocin: Induction Group B Beta Strep: negative Antibiotics # of Doses: 0 Name of Antibiotic Given: n/a Steroids Given: None Reason Steroids Not Administered: Not Applicable MEMBRANES Membranes Rupture Method: Artificial Rupture of Membranes: 04/25/2020 22:58 Length of Rupture (hr): 1.07 Amniotic Fluid Color: Clear Amniotic Fluid Amount: Small Amniotic Fluid Odor: Normal STAGES OF LABOR Stage 1 hr: 0 Stage 1 min: 48 Stage 2 hr: 0 Stage 2 min: 16 Stage 3 hr: 0 Stage 3 min: 5 Total Time in Labor hr: 1 Total Time in Labor min: 9 VAGINAL DELIVERY Episiotomy: None Other Laceration: Left labial laceration superficial and hemastatic Laceration Repair: Not Applicable Sponge Count Correct: Yes Sharps Count Correct: Yes CSECTION DELIVERY Primary Indication: N/A CSection Incision: N/A BABY A INFORMATION Delivery Date/Time: 04/26/2020 00:02 Method of Delivery: Vaginal Nurse Controlled Delivery: No Born in Route : No : N/A Forceps: N/A Vacuum Extraction: N/A Shoulder Dystocia : No PRESENTATION/POSITION BABY A Presentation: Cephalic Cephalic Presentation: Vertex Vertex Position: Right Occipital Anterior Breech Presentation: N/A PLACENTA INFORMATION BABY A Placenta Delivery Time : 04/26/2020 00:07 Placenta Method of Delivery: Spontaneous Placenta Status: Delivered SCORES BABY A Heart Rate 1 min: >100 bpm Resp Effort 1 min: Good Cry Reflex Irritability 1 min: Cough or Sneeze or Pulls Away Muscle Tone 1 min: Active Motion Color 1 min: Blue/Pale Resuscitation Effort 1 min: Tactile Stimulation SCORE 1 MIN: 8 Heart Rate 5 min: >100 bpm Resp Effort 5 min: Good Cry Reflex Irritability 5 min: Cough or Sneeze or Pulls Away Muscle Tone 5 min: Active Motion Color 5 min: Body Cubero, Extremities Blue Resuscitation Effort 5 min: Tactile Stimulation SCORE 5 MIN: 9 INFORMATION BABY A Gestational Age at Delivery: 41.0 Gestational Status: Late Term- 41- 41.6 Weeks Infant Outcome : Liveborn Infant Condition : Stable Infant Sex: Female IDENTIFICATION BABY A Verification Date/Time: 04/26/2020 00:10 ID Band Number: [id number] Mother's Name Verified: Yes Infant RN Verifying : Grace Gibbons, RN/ K. Carl, RN WEIGHT/LENGTH BABY A Birthweight (gm): 3710 Weight (lb): 8 Infant Weight (oz): 3 Infant Length (in): 19.75 Length (cm): 50.17 CORD INFORMATION BABY A No. Cord Vessels: 3 Nuchal Cord : N/A Cord Blood Taken: Yes-For Storage (Mom's Blood type +) Infant Suction: Mouth ASSESSMENT BABY A Complications: None Physical Findings at Delivery: Within Normal Limits Respirations: Appears Normal Skin to Skin: Yes Living Skills Advisor/ALS Called : No Transferred To: Remains with Mother BABY B INFORMATION : N/A ASSESSMENT BABY B Skin to Skin: No SIGNATURES Signature: with User ID: [id number] : with User ID: [id number]
--- NOTE | 2020-04-26 01:21 | Birth Certificate Data ---
Cert Data Datetime Report Generated by CPJean: 04/26/2020 01:21 CERTIFICATE DATA 47a. Care: Yes (04/24/2020 11:57:Ann Marie Hoffman RN) 47b. Date of First Visit: 10/13/2019 00:00 (04/24/2020 11:57:HAYLIE Nolasco) 47c. Date of Last Visit: 04/20/2020 00:00 (04/24/2020 11:57:HAYLIE Nolasco) 47d. Number of Visits: 14 (04/24/2020 11:57:HAYLIE Nolasco) 48a. Number of Prev Live Births: 2 (04/24/2020 11:57:Ann Marie Hoffman RN) 48b. Now Livin (04/24/2020 11:57:Ann Marie Hoffman RN) 48c. Live Births Now : 0 (04/24/2020 11:57:QS system process) 48d. Date of Last Live : 09/02/2017 00:00 (04/24/2020 11:57:Ann Marie Hoffman RN) 48e. Losses: 0 (04/24/2020 11:57:Ann Marie Hoffman RN) RISK FACTORS IN THIS 49a. Diabetes: No (04/24/2020 11:57:Mariya Nagel RN) 49b. Hypertension: Yes (04/24/2020 11:57:HAYLIE Nolasco) Type of Hypertension: Gestational (PIH, Pre-eclampsia) (04/24/2020 11:57:HAYLIE Nolasco) 49c. Previous Births: 1 (04/24/2020 11:57:Ann Marie Hoffman RN) 49d. Stillborns: No (04/24/2020 11:57:Mariya Nagel RN) 49d. IUGR: No (04/24/2020 11:57:Mariya Nagel RN) 49e. Infertility Treatment: No (04/24/2020 11:57:Mariya Nagel RN) 49f. Previous Cesareans: 0 (04/24/2020 11:57:Ann Marie Hoffman RN) Mother's Height 50b. Height Inches: 66 (04/25/2020 18:26:QS system process) Mother's Weight 51a. Pre- Weight (lbs): 230 (04/24/2020 11:57:HAYLIE Nolasco) 51b. Weight at Delivery (lbs): 277 (04/25/2020 18:26:QS system process) Infections Present/Treated 53a. Gonorrhea: No (04/24/2020 11:57:Mariya Nagel RN) Results this Hospital Visit : Negative (04/24/2020 11:57:HAYLIE Nolasco) 53b. Syphilis: No (04/24/2020 11:57:Mariya Nagel RN) 53c. Chlamydia: No (04/24/2020 11:57:Mariya Nagel RN) Results this Hospital Visit: Negative (04/24/2020 11:57:HAYLIE Nolasco) 53d. Hepatitis B: No (04/24/2020 11:57:Mariya Nagel RN) Results this Hospital Visit: Negative (04/24/2020 11:57:Mariya Nagel RN) 53e. Hepatitis C: Negative (04/24/2020 11:57:HAYLIE Nolasco) 53h. Mother Tested for HBsAG: Yes (04/24/2020 11:57:HAYLIE Nolasco) 53i. Date Tested: 11/03/2019 00:00 (04/24/2020 11:57:HAYLIE Nolasco) 53j. Test Result: Negative (04/24/2020 11:57:Mariya Nagel RN) Obstetric Procedures 54a, b, c. Obstetric Procedures: Ultrasound; NST (04/24/2020 11:57:Mariya Nagel RN) Cigarette Smoking Cigarette Smoking: Current Some Day Smoker. [id number] (04/24/2020 11:57:Mariya Nagel RN) 55a. 3 Months Before Preg - Ci (04/24/2020 11:57:Mariya Nagel RN) 55b. 1st Trimester of Preg- Ci (04/24/2020 11:57:Mariya Nagel RN) 55c. 2nd Trimester of Preg- Ci (04/24/2020 11:57:Ann Marie Hoffman RN) 55d. 3rd Trimester of Preg- Ci (04/24/2020 11:57:Ann Marie Hoffman RN) Onset of Labor 56a. PROM >12 Hrs: 1.07 (04/24/2020 11:57:QS system process) 56b. Precipitous Labor <3 Hrs: 1 (04/24/2020 11:57:QS system process) 56c. Prolonged Labor > 20 Hrs: 1 (04/24/2020 11:57:QS system process) 57a. Induction of Labor: Induction (04/24/2020 11:57:Mariya Nagel RN) 57c. Non-Vertex Presentation A: Vertex (04/24/2020 11:57:Marissa Henry RN) 57d. Steroids - Lung Mat: None (04/24/2020 11:57:Mariya Nagel RN) 57d. Steroids - Lung Mat: Not Applicable (04/24/2020 11:57:Mariya Nagle RN) 57f. Mat [place] or Temp >100.4: 98.4 (04/24/2020 11:57:Marissa Henry RN) 57g. Moderate/Heavy Meconium: Clear (04/25/2020 22:58:Cassia Irwin RN) 57h. Intolerance of Labor: N/A (04/24/2020 11:57:Marissa Henry RN) 57i. Epidural/Spinal Anesthesia: Intrathecal (04/24/2020 11:57:Courtney Larry MD) Method of Delivery 58a. Forceps - Unsuccessful A: N/A (04/24/2020 11:57:Marissa Henry RN) 58b. Vacuum - Unsuccessful A: N/A (04/24/2020 11:57:Marissa Henry RN) 58c. Presentation at 58c. Presentation at - A : Vertex (04/24/2020 11:57:Marissa Henry RN) 58c. Presentation at - A : N/A (04/24/2020 11:57:Marissa Henry RN) 58c. Presentation at - A : Cephalic (04/25/2020 16:34:HAYLIE Nolasco) Final Route and Method of Del 58d. Baby A Route/Delivery: Vaginal (04/26/2020 00:02:Cassia Irwin RN) 58e. Trial of Labor Attempted: No (04/24/2020 11:57:Marissa Henry RN) 58e. Trial of Labor Attempted A: N/A (04/24/2020 11:57:Marissa Henry RN) 58e. Trial of Labor Attempted B: N/A (04/24/2020 11:57:Marissa Henry RN) Maternal Morbidity 59b. 3rd or 4th Degree Lacs: Left labial laceration superficial and hemastatic (04/24/2020 11:57:Courtney Larry, MD) Birthweight Baby A: 3710 (04/24/2020 11:57:Cassia Irwin RN) 60a. Pounds : 8 (04/24/2020 11:57:QS system process) 60b. Ounces: 3 (04/24/2020 11:57:QS system process) 61. GA at Delivery Baby A: 41.0 (04/24/2020 11:57:Marissa Henry RN) : Late Term- 41- 41.6 Weeks (04/24/2020 11:57:QS system process) 62a. 5 Minute Baby A: 9 (04/24/2020 11:57:QS system process)
[2020-04-26] MEDS: DOCUSATE SODIUM 100 MG CAPSULE PO SCH ×2 (09:50→18:37)
[2020-04-26] MEDS: SENNOSIDES/DOCUSATE 8.6-50 MG 1 EACH TABLET PO SCH (09:50)
[2020-04-26] MEDS: PRENATAL VITAMIN W DHA CAPSULE PO SCH (09:50)
[2020-04-26] MEDS: FERROUS SULFATE 325 MG TABLET PO SCH ×2 (09:50→18:37)
[2020-04-26] MEDS: FAMOTIDINE 20 MG TABLET PO SCH ×2 (09:50→21:07)
[2020-04-26] MEDS: ACETAMINOPHEN 325 MG TABLET PO PRN (18:36)
[2020-04-27] MEDS: IBUPROFEN 800 MG TABLET PO SCH ×2 (06:36→14:16)
[2020-04-27] MEDS: SENNOSIDES/DOCUSATE 8.6-50 MG 1 EACH TABLET PO SCH (09:23)
[2020-04-27] MEDS: PRENATAL VITAMIN W DHA CAPSULE PO SCH (09:23)
[2020-04-27] MEDS: FERROUS SULFATE 325 MG TABLET PO SCH (09:23)
[2020-04-27] MEDS: FAMOTIDINE 20 MG TABLET PO SCH (09:23)
[2020-04-27] MEDS: DOCUSATE SODIUM 100 MG CAPSULE PO SCH (09:23)
[2020-04-27] MEDS: ACETAMINOPHEN 325 MG TABLET PO PRN (09:26)
--- NOTE | 2020-04-27 10:41 | PDOC PROGRESS REPORT ---
Subjective-OB Progress Note for:: 04/27/20 - PP day #1, pt desires to go home today if possible. A+ , rubella immune, brestfeeding Physical Exam (OB) Vital Signs: Temp Pulse Resp BP Pulse Ox 98.0 F 77 16 134/80 H 99 04/27/20 08:21 04/27/20 07:39 04/27/20 07:39 04/27/20 07:39 04/27/20 07:39 Intake & Output 04/26/20 04/27/20 04/28/20 06:59 06:59 06:59 Intake Total 1000 2330 Output Total 500 Balance 500 2330 Weight 126.3 kg - General General Appearance: Appears well, Alert In distress: None - PIH/Pre-Eclampsia Clonus: Negative Headache: Absent Epigastric Pain: No Visual Changes: No - Maternal Morbidity 59. Maternal Morbidity (serious complications experinced by the mother associated with labor and delivery: None of the above - Lochia Lochia Amount: Scant < 10 ml Lochia Color: Rubra/Red - Abdomen Description: Soft, Round Hernia Present: No Fundal Description: Firm, Midline Fundal Height: u/u - u/2 - Respiratory Respiratory Status: No respiratory distress - Abdominal Distension: No distension Tenderness: Nontender - Genitourinary Genitourinary Note: voiding - Extremities Upper extremity: Normal inspection Lower extremities: Normal inspection - Neurological Cognition: Normal Orientation: AAOx4 - Skin Skin Temperature: Warm Skin Moisture: Dry Objective-Diagnostic Laboratory: 04/25/20 17:00 04/25/20 17:12 Assessment and Plan(PN) - Assessment and Plan (1) Anemia Qualifiers: Anemia type: iron deficiency Iron deficiency anemia type: unspecified iron deficiency Qualified Code(s): D50.9 - Iron deficiency anemia, unspecified Is this a current diagnosis for this admission?: Yes (2) Delivery normal Is this a current diagnosis for this admission?: Yes (3) Qualifiers: Weeks of gestation: 39 weeks Qualified Code(s): Z3A.39 - 39 weeks gestation of Is this a current diagnosis for this admission?: Yes Plan:: Will d/c home if baby can go home today. Then pt to f/up w/ [facility] in 4 wks for PP check, - Time Spent with Patient Time with patient: Less than 15 minutes Medications reviewed and adjusted accordingly: Yes - Disposition Anticipated Discharge Disposition: Home, Self Care Anticipated Discharge Timeframe: within 24 hours
--- NOTE | 2020-04-27 12:52 | PDOC DISCHARGE SUMMARY ---
Impression - Admit/DC Date/PCP Admission Date/Primary Care Provider: 04/25/20 16:10 Discharge Date: 04/27/20 - pt able to go home today - Discharge Diagnosis (1) Anemia Is this a current diagnosis for this admission?: Yes (2) Delivery normal Is this a current diagnosis for this admission?: Yes (3) Is this a current diagnosis for this admission?: Yes - Additional Information Resuscitation Status: Full Code Discharge Diet: As Tolerated, Regular Discharge Activity: Activity As Tolerated, No Lifting Over 10 Pounds, Pelvic Rest Prescriptions: Ibuprofen [Motrin 800 mg Tablet] 800 mg PO Q8 #60 tablet Home Medications: No122/Iron/Folic Acid [ Multi Tablet] 1 each PO DAILY 08/20/16 Ibuprofen [Motrin 800 mg Tablet] 800 mg PO Q8 #60 tablet 04/27/20 HPI Reason(s) for Admission: Onset of Labor Procedures: Ultrasound Intrapartum Procedure(s): Spontaneous Vaginal Delivery Hospital Course 59. Maternal Morbidity (serious complications experinced by the mother associated with labor and delivery: None of the above Results Laboratory Results: WBC 9.1 10^3/uL (4.0-10.5) 04/25/20 17:00 RBC 4.16 10^6/uL (3.72-5.28) 04/25/20 17:00 Hgb 11.0 g/dL (12.0-15.5) L 04/25/20 17:00 Hct 32.7 % (36.0-47.0) L 04/25/20 17:00 MCV 79 fl (80-97) L 04/25/20 17:00 MCH 26.4 pg (27.0-33.4) L 04/25/20 17:00 MCHC 33.5 g/dL (32.0-36.0) 04/25/20 17:00 RDW 14.7 % (11.5-14.0) H 04/25/20 17:00 Plt Count 156 10^3/uL (150-450) 04/25/20 17:00 Lymph % (Auto) 12.9 % (13-45) L 04/25/20 17:00 [place] % (Auto) 7.8 % (3-13) 04/25/20 17:00 Eos % (Auto) 0.6 % (0-6) 04/25/20 17:00 Baso % (Auto) 0.3 % (0-2) 04/25/20 17:00 Absolute Neuts (auto) 7.1 10^3/uL (1.7-8.2) 04/25/20 17:00 Absolute Lymphs (auto) 1.2 10^3/uL (0.5-4.7) 04/25/20 17:00 Absolute Monos (auto) 0.7 10^3/uL (0.1-1.4) 04/25/20 17:00 Absolute Eos (auto) 0.1 10^3/uL (0.0-0.6) 04/25/20 17:00 Absolute Basos (auto) 0.0 10^3/uL (0.0-0.2) 04/25/20 17:00 Seg Neutrophils % 78.4 % (42-78) H 04/25/20 17:00 Sodium 134.4 mmol/L (137-145) L 04/25/20 17:12 Potassium 4.1 mmol/L (3.6-5.0) 04/25/20 17:12 Chloride 107 mmol/L (98-107) 04/25/20 17:12 Carbon Dioxide 21 mmol/L (22-30) L 04/25/20 17:12 Anion Gap 6 (5-19) 04/25/20 17:12 BUN 12 mg/dL (7-20) 04/25/20 17:12 Creatinine 0.57 mg/dL (0.52-1.25) 04/25/20 17:12 Est GFR ( Amer) > 60 (>60) 04/25/20 17:12 Est GFR (MDRD) Non-Af > 60 (>60) 04/25/20 17:12 Glucose 74 mg/dL (75-110) L 04/25/20 17:12 Uric Acid 4.7 mg/dL (2.5-6.2) 04/25/20 17:12 Calcium 9.1 mg/dL (8.4-10.2) 04/25/20 17:12 Total Bilirubin 0.2 mg/dL (0.2-1.3) 04/25/20 17:12 Direct Bilirubin 0.2 mg/dL (0.0-0.4) 04/25/20 17:12 Neonat Total Bilirubin Not Reportable 04/25/20 17:12 Neonat Direct Bilirubin Not Reportable 04/25/20 17:12 Neonat Indirect Bili Not Reportable 04/25/20 17:12 AST 16 U/L (14-36) 04/25/20 17:12 ALT 9 U/L (<35) 04/25/20 17:12 Alkaline Phosphatase 115 U/L (38-126) 04/25/20 17:12 Lactate Dehydrogenase 147 U/L (120-246) 04/25/20 17:12 Total Protein 5.7 g/dL (6.3-8.2) L 04/25/20 17:12 Albumin 3.1 g/dL (3.5-5.0) L 04/25/20 17:12 Urine Color YELLOW 04/25/20 16:39 Urine Appearance CLEAR 04/25/20 16:39 Urine pH 6.0 (5.0-9.0) 04/25/20 16:39 Ur Specific [place] 1.011 04/25/20 16:39 Urine Protein NEGATIVE mg/dL (NEGATIVE) 04/25/20 16:39 Urine Glucose (UA) NEGATIVE mg/dL (NEGATIVE) 04/25/20 16:39 Urine Ketones NEGATIVE mg/dL (NEGATIVE) 04/25/20 16:39 Urine Blood NEGATIVE (NEGATIVE) 04/25/20 16:39 Urine Nitrite NEGATIVE (NEGATIVE) 04/25/20 16:39 Urine Bilirubin NEGATIVE (NEGATIVE) 04/25/20 16:39 Urine Urobilinogen NEGATIVE mg/dL (<2.0) 04/25/20 16:39 Ur Leukocyte Esterase TRACE (NEGATIVE) H 04/25/20 16:39 Urine WBC (Auto) 4 /HPF 04/25/20 16:39 Urine RBC (Auto) 0 /HPF 04/25/20 16:39 Squamous Epi Cells Auto 2 /HPF 04/25/20 16:39 Urine Mucus (Auto) RARE /LPF 04/25/20 16:39 Urine Ascorbic Acid NEGATIVE (NEGATIVE) 04/25/20 16:39 Membranes Rupture NEGATIVE (NEGATIVE) 04/25/20 16:39 Urine Opiates Screen NEGATIVE 04/25/20 16:39 Urine Methadone Screen NEGATIVE 04/25/20 16:39 Ur Barbiturates Screen UNCONFIRMED POSITIVE 04/25/20 16:39 Ur Phencyclidine Scrn NEGATIVE 04/25/20 16:39 Ur Amphetamines Screen NEGATIVE 04/25/20 16:39 U Benzodiazepines Scrn NEGATIVE 04/25/20 16:39 Urine Cocaine Screen NEGATIVE 04/25/20 16:39 U Marijuana (THC) Screen NEGATIVE 04/25/20 16:39 RPR NONREACTIVE (NONREACTIVE) 04/25/20 17:00 Blood Type A POSITIVE 04/25/20 17:00 Antibody Screen NEGATIVE 04/25/20 17:00 Plan Plan of Treatment: d.c home and f/up with [facility] in 4 wks Time Spent: Less than 30 Minutes
[2020-04-27 13:24] VITALS: BP 120/82
== END 2020-04-27 15:20 | disposition home or self-care (01) | DRG 807 ==
LOC: LR 16:10 → 2S 04-26 02:31
PROVIDERS: ADMIT Obstetrics & Gynecology; ATTEND Obstetrics & Gynecology
PROC: 10E0XZZ Delivery of Products of Conception, External Approach (ICD-10-PCS; principal; 2020-04-26)
DX: O48.0 Post-term pregnancy (principal); Z37.0 Single live birth; O70.0 First degree perineal laceration during delivery; O26.03 Excessive weight gain in pregnancy, third trimester; Z3A.41 41 weeks gestation of pregnancy; O99.02 Anemia complicating childbirth; D50.9 Iron deficiency anemia, unspecified; Z87.891 Personal history of nicotine dependence
CPT/HCPCS: 1967; 36415; 80053; 80307; 81001; 83615; 84112; 84550; 85025; 86592; 86850; 86900; 86901; J2590; J2795; J3010; J3490